=== PATIENT | female | born 1935 | race Caucasian/White ===

== ENCOUNTER 2017-03-25 14:34 | Inpatient (IN) ==
[2017-03-25 14:57] LABS: Basophils # 0.1 K/mcL (0.0-0.2); Basophils % 0.8 %; Eosinophils # 0.1 K/mcL (0.0-0.6); Eosinophils % 1.8 %; Hematocrit 31.5 % (35.3-44.9); Hemoglobin 9.8 g/dL (11.5-15.4); Immature Granulocytes % 0.3 % (0-4); Lymphocytes % 12.7 %; Mean Corpuscular HGB Conc 31.1 g/dL (31.6-35.5); Mean Corpuscular Hemoglobin 30.4 pg (28.0-33.3); Mean Corpuscular Volume 97.8 fL (83.0-100.0); Mean Platelet Volume 10.5 fL (9.4-12.4); Monocytes # 0.8 K/mcL (0.0-1.3); Monocytes % 9.8 %; Neutrophils # 5.7 K/mcL (1.6-8.9); Platelet Count 279 K/mcL (140-400); Red Blood Count 3.22 M/mcL (3.82-4.97); Red Cell Distribution Width 14.7 % (11.5-14.5); Segmented Neutrophils % 74.6 %
--- NOTE | 2017-03-25 15:02 | Emergency Department Note ---
START Narrative - START START: 81-year-old female presents to the ED because of syncope and headache. She was in the process of going to the Coumadin clinic when she had a syncopal episode of uncertain duration. Denies any preemptive symptoms. However, she did awake with a headache and dyspnea. Denies chest pain. No nausea vomiting. No focal weakness. Examination she is awake and alert. Supple oxygen in place. He is membranes are moist. Neck is supple. Neck nontender to palpation. Chest clear but diminished bilaterally. Neurologic exam is nonfocal.
[2017-03-25 15:07] LABS: INR 2.7; Prothrombin Time 30.1 Seconds (9.4-12.1)
[2017-03-25] MEDS ORDERED: methylPREDNISolone 125 MG/2 ML VIAL IVP ONE (15:14)
[2017-03-25] MEDS ORDERED: Ipratropium/Albuterol Neb 3 ML IH ONE (15:14)
[2017-03-25 15:16] LABS: BUN/Creatinine Ratio 37 (6-26); Blood Urea Nitrogen 23 mg/dL (8-23); Calcium 9.7 mg/dL (8.6-10.3); Carbon Dioxide 32 mEq/L (23-29); Chloride 98 mEq/L (98-107); Glucose 125 mg/dL (70-105); Osmolality,Calculated 287 (280-300); Potassium 4.1 mEq/L (3.5-5.1); Sodium 136 mEq/L (136-145); eGFR For African Americans > 60 (> 60); eGFR For Non-African Americans > 60 (> 60)
[2017-03-25 15:47] LABS: VBG HCO3 33 mEq/L (21-27); VBG PCO2 53 mmHg (41-51); VBG PO2 47 mmHg (25-50)
--- NOTE | 2017-03-25 15:58 | Emergency Department Note ---
Disposition Clinical Impression: COPD exacerbation Syncope Qualifiers: Syncope type: unspecified Qualified Code(s): R55 - Syncope and collapse Anemia Qualifiers: Anemia type: unspecified type Qualified Code(s): D64.9 - Anemia, unspecified Disposition: Admitted As Inpatient Condition: Fair General Adult HPI - General Chief complaint: ED Shortness of Breath/Dyspnea Stated complaint: Shortness of breath Time Seen by Provider: 03/25/17 15:01 Source: patient, EMS Limitations: no limitations Nursing Notes Reviewed: Yes Vital Signs Reviewed: Yes - History of Present Illness HPI Narrative: Past medical history of [place] givens on Coumadin, CHF, COPD on 2 L of home oxygen, hypertension, hyperlipidemia presents for evaluation of chest pain and syncope. Patient was on her way to the Coumadin clinic when she was getting out of the car became acutely dyspneic. Patient states that her family told her that she passed out. Patient was arousable with physical stimulation. Patient has returned to baseline mental status. The patient complains of continued chest pressure in her chest which she describes as a dullness. Describes worsening shortness of breath requiring increase in baseline oxygen. Patient also has abdominal pain however she states this pain is chronic and family states that this has been going on for years. She has irritation of her stomach as well as a hernia. This point the patient is mildly dyspneic and will need breathing treatments and steroids and admission for chest pain, COPD exacerbation, syncope. Pain Scale: 0 - Related Data Home Medications Medication Instructions Recorded Confirmed Allopurinol [Zyloprim] 300 mg PO QAM 10/11/14 03/25/17 Atorvastatin Calcium [Lipitor] 20 mg PO QAM 10/11/14 03/25/17 Quinapril HCl [Accupril] 40 mg PO QAM 10/11/14 03/25/17 Diclofenac Sodium 1 appl TP QID PRN 01/28/17 03/25/17 Escitalopram [Lexapro] 10 mg PO DAILY 01/28/17 03/25/17 Amlodipine Besylate 10 mg PO DAILY 03/25/17 03/25/17 Furosemide [Lasix] 40 mg PO BID 03/25/17 03/25/17 Lidocaine Patch [Lidoderm 5% patch] 2 each TP DAILY 03/25/17 03/25/17 Oxycodone HCl/Acetaminophen 1 tab PO Q6H PRN 03/25/17 03/25/17 [Percocet 5-325 mg Tablet] Sucralfate [Carafate] 1 gm PO QID 03/25/17 03/25/17 Warfarin Sodium [Coumadin] 6 mg PO SUMOTUTHSA 03/25/17 03/25/17 Warfarin [Coumadin] 8 mg PO WEFR 03/25/17 03/25/17 metFORMIN [Glucophage] 500 mg PO BIDWM 03/25/17 03/25/17 Previous Rx's Medication Instructions Recorded Aspirin Enteric Coated [Aspirin EC] 81 mg PO DAILY #30 tablet. 02/04/17 Carvedilol [Coreg] 6.25 mg PO BIDWM #60 tablet 02/04/17 Omeprazole [PriLOSEC] 40 mg PO DAILY #30 cap 02/04/17 hydroCHLOROthiazide 25 mg PO DAILY #30 tablet 02/04/17 [Hydrochlorothiazide] Allergies Allergy/AdvReac Type Severity Reaction Status Date / Time No Known Allergies Allergy Verified 01/28/17 13:58 Review of Systems: CONSTITUTIONAL: No weight loss, fever, chills, weakness or fatigue. HEENT: Eyes: No visual changes. Ears, Nose, Throat: No hearing loss, difficulty talking or unable to swallow. SKIN: No rash or itching. CARDIOVASCULAR: chest pain No palpitations or edema. RESPIRATORY: shortness of breath, No cough or sputum. GASTROINTESTINAL: No anorexia, nausea, vomiting or diarrhea. No abdominal pain or blood. GENITOURINARY: No burning on urination or hematuria. NEUROLOGICAL: syncope No headache, dizziness, paralysis, ataxia, numbness or tingling in the extremities. No change in bowel or bladder control. MUSCULOSKELETAL: No muscle pain, back pain, joint pain or stiffness. Past Medical History - Past Medical History Medical history: Reports: atrial fibrillation, CHF, COPD, diabetes, hyperlipidemia, hypertension Surgical history: Reports: cataract, cholecystectomy, hysterectomy Psychiatric history: Reports: depression - Social History Smoking Status: Former smoker Smokeless Tobacco Status: No Alcohol use: Reports: none Drug use: Reports: none Physical Exam - General Limitations: no limitations General appearance: alert, in no apparent distress Course - Reevaluation(s) Reevaluation #1: Patient's breathing has improved with breathing treatment and steroids. Patient is complaining of worsening abdominal pain. States it is chronic however she states that it is more than usual. Patient will receive CT abdomen and pelvis. Reevaluation #2: CT abdomen and pelvis is negative. Patient will work is otherwise unremarkable. Patient does have chronic anemia. Patient will need further evaluation for syncope. Patient will also need further treatment for COPD exacerbation. - Consultations Consultation #1: Discussed with Dr. Hernandez. Patient accepted for admission. Vital Signs Temperature 97.9 F 03/25/17 14:35 Pulse Rate 80 03/25/17 14:35 Respiratory Rate 24 03/25/17 14:35 Blood Pressure 145/85 03/25/17 14:35 O2 Sat by Pulse Oximetry 100 03/25/17 14:35 Temperature 98.5 F 03/26/17 00:04 Pulse Rate 104 03/26/17 00:04 Respiratory Rate 17 03/26/17 00:04 Blood Pressure 123/61 03/26/17 00:04 O2 Sat by Pulse Oximetry 95 03/26/17 00:04 Oxygen Delivery Oxygen Delivery Nasal Cannula Medical Decision Making - Medical Records Medical records reviewed: Yes I reviewed the patient's medical records. - Lab Data Lab results reviewed: Yes I reviewed the patient's lab results. Result diagrams: 03/25/17 14:49 03/25/17 14:49 Lab Results 03/25/17 03/25/17 03/25/17 Range/Units 14:49 14:49 14:49 WBC 7.7 (4.3-11.1) K/mcL RBC 3.22 L (3.82-4.97) M/mcL Hgb 9.8 L (11.5-15.4) g/dL Hct 31.5 L (35.3-44.9) % MCV 97.8 (83.0-100.0) fL MCH 30.4 (28.0-33.3) pg MCHC 31.1 L (31.6-35.5) g/dL RDW 14.7 H (11.5-14.5) % Plt Count 279 (140-400) K/mcL MPV 10.5 (9.4-12.4) fL Immature Gran % 0.3 (0-4) % Seg Neutrophils % 74.6 % Lymphocytes % 12.7 % Monocytes % 9.8 % Eosinophils % 1.8 % Basophils % 0.8 % Neutrophils # 5.7 (1.6-8.9) K/mcL Lymphocytes # 1.0 (0.6-4.6) K/mcL Monocytes # 0.8 (0.0-1.3) K/mcL Eosinophils # 0.1 (0.0-0.6) K/mcL Basophils # 0.1 (0.0-0.2) K/mcL PT 30.1 H (9.4-12.1) Seconds INR 2.7 APTT 32.0 (26.0-36.0) Seconds VBG pH (7.32-7.42) pH Units VBG pCO2 (41-51) mmHg VBG pO2 (25-50) mmHg VBG HCO3 (21-27) mEq/L Sodium 136 (136-145) mEq/L Potassium 4.1 (3.5-5.1) mEq/L Chloride 98 (98-107) mEq/L Carbon Dioxide 32 H (23-29) mEq/L BUN 23 (8-23) mg/dL Creatinine 0.62 (0.60-1.20) mg/dL Est GFR ( Amer) > 60 (> 60) Est GFR (Non-Af Amer) > 60 (> 60) BUN/Creatinine Ratio 37 H (6-26) Glucose 125 H (70-105) mg/dL POC Glucose (58-89) Calculated Osmolality 287 (280-300) Lactic Acid (0.5-2.2) mmol/L Calcium 9.7 (8.6-10.3) mg/dL Total Bilirubin (0.3-1.0) mg/dL Direct Bilirubin (0.0-0.2) mg/dL Indirect Bilirubin (0.0-1.2) mg/dL AST (13-39) Units/L ALT (7-52) Units/L Alkaline Phosphatase (34-104) Units/L Troponin I (< 0.04) ng/mL B-Natriuretic Peptide (Less than 100) pg/mL Serum Total Protein (6.4-8.9) g/dL Albumin (3.5-5.7) g/dL Globulin (2.4-3.5) g/dL Albumin/Globulin Ratio (1.1-2.2) Lipase (11-82) Units/L 03/25/17 03/25/17 03/25/17 Range/Units 14:49 14:49 15:35 WBC (4.3-11.1) K/mcL RBC (3.82-4.97) M/mcL Hgb (11.5-15.4) g/dL Hct (35.3-44.9) % MCV (83.0-100.0) fL MCH (28.0-33.3) pg MCHC (31.6-35.5) g/dL RDW (11.5-14.5) % Plt Count (140-400) K/mcL MPV (9.4-12.4) fL Immature Gran % (0-4) % Seg Neutrophils % % Lymphocytes % % Monocytes % % Eosinophils % % Basophils % % Neutrophils # (1.6-8.9) K/mcL Lymphocytes # (0.6-4.6) K/mcL Monocytes # (0.0-1.3) K/mcL Eosinophils # (0.0-0.6) K/mcL Basophils # (0.0-0.2) K/mcL PT (9.4-12.1) Seconds INR APTT (26.0-36.0) Seconds VBG pH (7.32-7.42) pH Units VBG pCO2 (41-51) mmHg VBG pO2 (25-50) mmHg VBG HCO3 (21-27) mEq/L Sodium (136-145) mEq/L Potassium (3.5-5.1) mEq/L Chloride (98-107) mEq/L Carbon Dioxide (23-29) mEq/L BUN (8-23) mg/dL Creatinine (0.60-1.20) mg/dL Est GFR ( Amer) (> 60) Est GFR (Non-Af Amer) (> 60) BUN/Creatinine Ratio (6-26) Glucose (70-105) mg/dL POC Glucose (58-89) Calculated Osmolality (280-300) Lactic Acid (0.5-2.2) mmol/L Calcium (8.6-10.3) mg/dL Total Bilirubin 0.8 (0.3-1.0) mg/dL Direct Bilirubin 0.2 (0.0-0.2) mg/dL Indirect Bilirubin 0.6 (0.0-1.2) mg/dL AST 16 (13-39) Units/L ALT 11 (7-52) Units/L Alkaline Phosphatase 63 (34-104) Units/L Troponin I < 0.03 (< 0.04) ng/mL B-Natriuretic Peptide 258 H (Less than 100) pg/mL Serum Total Protein 7.2 (6.4-8.9) g/dL Albumin 3.9 (3.5-5.7) g/dL Globulin 3.3 (2.4-3.5) g/dL Albumin/Globulin Ratio 1.2 (1.1-2.2) Lipase 41 (11-82) Units/L 03/25/17 03/25/17 03/25/17 Range/Units 15:35 15:43 20:12 WBC (4.3-11.1) K/mcL RBC (3.82-4.97) M/mcL Hgb (11.5-15.4) g/dL Hct (35.3-44.9) % MCV (83.0-100.0) fL MCH (28.0-33.3) pg MCHC (31.6-35.5) g/dL RDW (11.5-14.5) % Plt Count (140-400) K/mcL MPV (9.4-12.4) fL Immature Gran % (0-4) % Seg Neutrophils % % Lymphocytes % % Monocytes % % Eosinophils % % Basophils % % Neutrophils # (1.6-8.9) K/mcL Lymphocytes # (0.6-4.6) K/mcL Monocytes # (0.0-1.3) K/mcL Eosinophils # (0.0-0.6) K/mcL Basophils # (0.0-0.2) K/mcL PT (9.4-12.1) Seconds INR APTT (26.0-36.0) Seconds VBG pH 7.40 (7.32-7.42) pH Units VBG pCO2 53 H (41-51) mmHg VBG pO2 47 (25-50) mmHg VBG HCO3 33 H (21-27) mEq/L Sodium (136-145) mEq/L Potassium (3.5-5.1) mEq/L Chloride (98-107) mEq/L Carbon Dioxide (23-29) mEq/L BUN (8-23) mg/dL Creatinine (0.60-1.20) mg/dL Est GFR ( Amer) (> 60) Est GFR (Non-Af Amer) (> 60) BUN/Creatinine Ratio (6-26) Glucose (70-105) mg/dL POC Glucose (58-89) Calculated Osmolality (280-300) Lactic Acid 1.2 (0.5-2.2) mmol/L Calcium (8.6-10.3) mg/dL Total Bilirubin (0.3-1.0) mg/dL Direct Bilirubin (0.0-0.2) mg/dL Indirect Bilirubin (0.0-1.2) mg/dL AST (13-39) Units/L ALT (7-52) Units/L Alkaline Phosphatase (34-104) Units/L Troponin I < 0.03 (< 0.04) ng/mL B-Natriuretic Peptide (Less than 100) pg/mL Serum Total Protein (6.4-8.9) g/dL Albumin (3.5-5.7) g/dL Globulin (2.4-3.5) g/dL Albumin/Globulin Ratio (1.1-2.2) Lipase (11-82) Units/L 03/25/17 Range/Units 20:34 WBC (4.3-11.1) K/mcL RBC (3.82-4.97) M/mcL Hgb (11.5-15.4) g/dL Hct (35.3-44.9) % MCV (83.0-100.0) fL MCH (28.0-33.3) pg MCHC (31.6-35.5) g/dL RDW (11.5-14.5) % Plt Count (140-400) K/mcL MPV (9.4-12.4) fL Immature Gran % (0-4) % Seg Neutrophils % % Lymphocytes % % Monocytes % % Eosinophils % % Basophils % % Neutrophils # (1.6-8.9) K/mcL Lymphocytes # (0.6-4.6) K/mcL Monocytes # (0.0-1.3) K/mcL Eosinophils # (0.0-0.6) K/mcL Basophils # (0.0-0.2) K/mcL PT (9.4-12.1) Seconds INR APTT (26.0-36.0) Seconds VBG pH (7.32-7.42) pH Units VBG pCO2 (41-51) mmHg VBG pO2 (25-50) mmHg VBG HCO3 (21-27) mEq/L Sodium (136-145) mEq/L Potassium (3.5-5.1) mEq/L Chloride (98-107) mEq/L Carbon Dioxide (23-29) mEq/L BUN (8-23) mg/dL Creatinine (0.60-1.20) mg/dL Est GFR ( Amer) (> 60) Est GFR (Non-Af Amer) (> 60) BUN/Creatinine Ratio (6-26) Glucose (70-105) mg/dL POC Glucose 163 H (58-89) Calculated Osmolality (280-300) Lactic Acid (0.5-2.2) mmol/L Calcium (8.6-10.3) mg/dL Total Bilirubin (0.3-1.0) mg/dL Direct Bilirubin (0.0-0.2) mg/dL Indirect Bilirubin (0.0-1.2) mg/dL AST (13-39) Units/L ALT (7-52) Units/L Alkaline Phosphatase (34-104) Units/L Troponin I (< 0.04) ng/mL B-Natriuretic Peptide (Less than 100) pg/mL Serum Total Protein (6.4-8.9) g/dL Albumin (3.5-5.7) g/dL Globulin (2.4-3.5) g/dL Albumin/Globulin Ratio (1.1-2.2) Lipase (11-82) Units/L - Radiology Data Radiology results reviewed: Yes I reviewed the patient's radiology results. - EKG Data EKG #1 EKG attestation: Yes I reviewed and interpreted this EKG. EKG results narrative: EKG shows atrial fibrillation with a ventricular rate of 67. QRS 165. QTC 453. Patient has no significant ST elevations or depressions. There are no changes in comparison to 01/28/17. Attestation Statement - Attestation Attestation: I examined this patient and my medical decision-making was reviewed with the Resident Physician. I agree with the documented findings, disposition and treatment plan as described except to the extent set forth below. Syncope, abdominal pain. We will recommend workup including inpatient stay for further evaluation of significant ascending abdominal pain. CT scan shows no acute findings. No significant metabolic derangement identified.
[2017-03-25] MEDS ORDERED: 0.9 % Sodium Chloride 250 ML IVC ONE (16:11)
[2017-03-25] MEDS ORDERED: *HR* FentaNYL (PF) 100 MCG/2 ML VIAL IVP ONE (16:11)
[2017-03-25] MEDS ORDERED: Ondansetron 4 MG/2 ML VIAL IVP STA (16:12)
[2017-03-25 16:44] LABS: Albumin 3.9 g/dL (3.5-5.7); Albumin/Globulin Ratio 1.2 (1.1-2.2); Bilirubin,Direct 0.2 mg/dL (0.0-0.2); Bilirubin,Indirect 0.6 mg/dL (0.0-1.2); Bilirubin,Total 0.8 mg/dL (0.3-1.0); Globulin 3.3 g/dL (2.4-3.5); Total Protein 7.2 g/dL (6.4-8.9)
[2017-03-25] MEDS ORDERED: Ondansetron 4 MG/2 ML VIAL IVP PRN (18:54)
[2017-03-25] MEDS ORDERED: Naloxone 0.4 MG/ML INJ IVP PRN (18:54)
[2017-03-25] MEDS ORDERED: DICLOFENAC SODIUM TP PRN (19:00)
[2017-03-25] MEDS ORDERED: *HR* Dextrose 50 % in Water (Syg) 50 ML SYRINGE IVP PRN (19:12)
[2017-03-25] MEDS ORDERED: D5% in Water 1,000 ML IVC PRN (19:12)
[2017-03-25] MEDS ORDERED: Dextrose Gel 15 GM/37.5 ML TUBE PO PRN ×2 (19:12)
--- NOTE | 2017-03-25 19:22 | Internal Med History&Physical ---
<Levi Hook - Last Filed: 03/25/17 20:03> Date of Encounter: 03/25/17 Time of Encounter: 18:00 Assessment and Plan (1) Acute exacerbation of congestive heart failure Current visit: Yes Status: Acute Acute exacerbation of CHF. SOB, dyspnea, orthopnea, increased abdominal girth, and 2+ bilateral pitting edema of the LEs that has progressively become worse over the past 2-3 days. 1.5L daily fluid restriction. Pt. takes 40 mg BID PO lasix daily. Hold PO and administer 40 mg IVP lasix BID. Monitor I&O and daily weight. Continuous cardiac telemetry. Echocardiogram dated 01/29/17 shows LVEF of 60-65%, normal LV chamber size and function, mild concentric left ventricular hypertrophy, atypical septal motion consistent with bundle branch block, indeterminate diastolic function, mildly dilated right ventricle with normal function, severely dilated left atrium, severely dilated right atrium, mild aortic regurgitation, severe tricuspid regurgitation, moderate to severe pulmonary hypertension, and estimated RVSP is 54 mmHg. Supplemental O2 w/ titration and SpO2 monitoring. DuoNebs Q6 scheduled. Pt. discussed w/Dr. Harris who is in agreement w/plan of care. Pt. is high risk for cardiac and/ or respiratory distress d/t current exacerbations of CHF and COPD, complicated by suspected bronchitis. Qualifiers: Congestive heart failure type: diastolic Qualified Code(s): I50.33 - Acute on chronic diastolic (congestive) heart failure (2) Acute exacerbation of chronic obstructive airways disease Current visit: Yes Status: Acute Acute exacerbation of COPD. SOB w/dyspnea. Solumedrol 40 mg IVP Q8. Supplemental O2 w/titration and SpO2 monitoring. DuoNebs Q6 scheduled. Monitor pt. and respiratory status closely. Azithromycin 500 mg PO daily for bronchitis infection coverage. (3) Weakness of both legs Current visit: Yes Status: Acute Acute weakness of bilateral knees and LEs. Falls/safety precautions. SW/PT/OT consults ordered to assess pt. for rehabilitation and post-discharge needs. (4) Syncope Current visit: Yes Status: Acute Acute syncopal episode this morning while seated in car w/daughter. States has happened before x2 (last time at [facility]). Pt. did not become incontinent. Pt. denies falling as she was seated. Denies appearance of seizure. Falls/ safety precautions, [id number], bedside commode w/assist. Bilateral carotid Doppler imaging ordered. Echocardiogram on 01/29/17 shows LVEF 60-65%. Qualifiers: Syncope type: unspecified Qualified Code(s): R55 - Syncope and collapse (5) DM2 (diabetes mellitus, type 2) Current visit: Yes Status: Chronic Hx of chronic DM controlled by Metformin. Hold oral and administer low-dose correction insulin sliding scale and hypoglycemic protocol. BG checks ACHS. A1c in a.m. labs. Qualifiers: Diabetes mellitus complication status: without complication Diabetes mellitus mcc insulin use: without mcc use Qualified Code(s): E11.9 - Type 2 diabetes mellitus without complications (6) GERD (gastroesophageal reflux disease) Current visit: Yes Status: Chronic Hx of chronic GERD. IVP Zofran 4 mg Q8 for N/V. Continue pts. Prilosec. Qualifiers: Esophagitis presence: esophagitis presence not specified Qualified Code(s) : K21.9 - Gastro-esophageal reflux disease without esophagitis (7) Gout Current visit: Yes Status: Chronic Hx of chronic gout. Continue pts. Allopurinol. Qualifiers: Gout site: unspecified site Gout etiology: unspecified cause Chronicity: chronic Presence of tophus: without tophus Qualified Code(s): M1A.9XX0 - Chronic gout, unspecified, without tophus (tophi) (8) HLD (hyperlipidemia) Current visit: Yes Status: Chronic Hx of chronic HLD. Lipid panel in a.m. labs. Continue pts. Lipitor. Qualifiers: Hyperlipidemia type: pure hypercholesterolemia Qualified Code(s): E78.00 - Pure hypercholesterolemia, unspecified; E78.0 - Pure hypercholesterolemia (9) HTN (hypertension) Current visit: Yes Status: Chronic Hx of chronic HTN. Monitor pt. and VS. Continue pts. Accupril, amlodipine, carvedilol, and hydrochlorothiazide. Qualifiers: Hypertension type: essential hypertension Qualified Code(s): I10 - Essential (primary) hypertension (10) Anxiety and depression Current visit: Yes Status: Chronic Hx of chronic anxiety and depression. Continue pts. Lexapro (11) DVT prophylaxis Current visit: Yes Status: Acute Continue patient's Coumadin with pharmacy dosing for DVT prophylaxis. Monitor patient for signs of bleeding. Internal Medicine - H&P: HPI Chief complaint: SOB/Dyspnea Admitted From: Emergency Dept Plans for Post Hospital Care: Home History of present illness: Ms. Rodriguez is a 81 year old female with medical hx of chronic atrial fibrillation , CHF, COPD, diabetes controlled with oral antihyperglycemic medications, HLD, and HCM presents from the ED with chief complaints of brief syncopal episode this morning while sitting in the car, shortness of breath, and dyspnea for the past two days. Pt. reports she is having chest discomfort across her chest w/o radiation as well as bilateral leg weakness. Pt. denies recent illness, fever, chills, nausea, vomiting, palpitations, headache, changes of vision, unusual bleeding, diarrhea, constipation, abdominal pain, dizziness, lightheadedness, pre-syncope, or syncope. Past Med Surg Social Fam HX - Past Medical History Source: patient, old records reviewed, obtained from family Medical history: atrial fibrillation, CHF, COPD, diabetes, hyperlipidemia, hypertension Psychiatric history: depression - Past Surgical History Surgical History: cataract (Bilateral), cholecystectomy, hysterectomy (Total) - Social History Smoking Status: Never smoker Smokeless Tobacco Status: No Alcohol use: none Drug use: none Current living situation: Home, With Family Activity Level: Uses cane/walker Recent Out of Country Travel Within the Last 8 Weeks: No Exposure or Possible Exposure to Illness During Travel: No - Family History Mother Race: Family Member Ethnicity: Non- Living Status: Age at : 72 Cause of : Emphysema Hx Family Respiratory Disorders: Yes (Emphysema, TB) Hx Family Cancer: Yes (Basal cell skin cancer) Hx Family Endocrine Disorder: Yes (Cirrhosis) Father Race: Family Member Ethnicity: Non- Living Status: Age at : 70 Cause of : COPD Hx Family Respiratory Disorders: Yes (COPD, emphysema) Hx Family Endocrine Disorder: Yes (Cirrhosis) Brother History Unknown: Yes Race: Family Member Ethnicity: Non- Living Status: Sister Race: Family Member Ethnicity: Non- Living Status: Age at : 50 Cause of : [place] Hx Family Cardiac Disorders: Yes ([place]) Internal Medicine - H&P: Meds Allopurinol [Zyloprim] 300 mg PO QAM 10/11/14 [History] Atorvastatin Calcium [Lipitor] 20 mg PO QAM 08/06/15 [History] Quinapril HCl [Accupril] 40 mg PO QAM 10/11/14 [History] Diclofenac Sodium 1 appl TP QID PRN 01/28/17 [History] Escitalopram [Lexapro] 10 mg PO DAILY 01/28/17 [History] Aspirin Enteric Coated [Aspirin EC] 81 mg PO DAILY #30 tablet. 02/04/17 [Rx] Carvedilol [Coreg] 6.25 mg PO BIDWM #60 tablet 02/04/17 [Rx] Omeprazole [PriLOSEC] 40 mg PO DAILY #30 cap 02/04/17 [Rx] hydroCHLOROthiazide [Hydrochlorothiazide] 25 mg PO DAILY #30 tablet 02/04/17 [Rx ] Amlodipine Besylate 10 mg PO DAILY 03/25/17 [History] Furosemide [Lasix] 40 mg PO BID 03/25/17 [History] Lidocaine Patch [Lidoderm 5% patch] 2 each TP DAILY 03/25/17 [History] Oxycodone HCl/Acetaminophen [Percocet 5-325 mg Tablet] 1 tab PO Q6H PRN [History] Sucralfate [Carafate] 1 gm PO QID 03/25/17 [History] Warfarin Sodium [Coumadin] 6 mg PO SUMOTUTHSA 03/25/17 [History] Warfarin [Coumadin] 8 mg PO WEFR 03/25/17 [History] metFORMIN [Glucophage] 500 mg PO BIDWM 03/25/17 [History] 3 Allergy/AdvReac Type Severity Reaction Status Date / Time No Known Allergies Allergy Verified 01/28/17 13:58 All Systems PM: A 10-system review of systems was performed and is negative for pertinent findings except as documented above in the HPI. - Constitutional Constitutional: as per HPI, weakness, no chills, no fever(s), no night sweats - EENT Eyes: no change in vision, no discharge, no pain, no photophobia Ears: no ear discharge, no ear pain, no tinnitus Nose, mouth and throat: no dysphagia, no nasal discharge, no neck pain, no sore throat - Breasts Breasts: as per HPI - Cardiovascular Cardiovascular ROS IM: as per HPI, chest pain, dyspnea, dyspnea on exertion, edema (Bilateral pedal edema), irregular heart rhythm (D/T atrial fibrillation) , orthopnea, syncope, no diaphoresis, no lightheadedness, no palpitations - Respiratory Respiratory: as per HPI, cough, dyspnea, dyspnea on exertion, wheezing, no excessive phlegm production - Gastrointestinal Gastrointestinal: no abdominal pain, no diarrhea, no hematemesis, no hematochezia, no melena, no nausea, no vomiting - Genitourinary Genitourinary: no change in urinary stream, no dysuria, no flank pain, no hematuria Menstruation: as per HPI, post hysterectomy - Musculoskeletal Musculoskeletal ROS IM: no numbness, no tingling - Integumentary Integumentary IM: no rash, no unusual bruising - Neurological Neurological ROS: as per HPI, weakness, no confusion, no convulsions, no focal weakness, no numbness, no tingling, no tremor(s) - Psychiatric Psychiatric: as per HPI, depression - Endocrine Endocrine IM: as per HPI - Hematologic/Lymphatic Hematologic/Lymphatic: no easy bruising - Allergic/Immunologic Allergic/Immunologic: as per HPI - Constitutional Vitals: Temp Pulse Resp BP Pulse Ox 97.9 F 102 18 153/74 92 03/25/17 14:35 03/25/17 18:10 03/25/17 18:10 03/25/17 18:10 03/25/17 18:10 General appearance: Present: cooperative, mild distress (Respiratory), A&O X 3, pleasant, obese, answers questions appropriately - Head Head exam: Present: atraumatic, normocephalic - Eye Eye exam: Present: PERRL, conjuntiva pink, sclera anicteric Pupils: Present: PERRL - ENT ENT exam: Present: normal exam - Neck Neck exam general surgery: Present: normal inspection, supple, trachea midline. Absent: lymphadenopathy - Respiratory Respiratory exam: Present: accessory muscle use, respiratory distress, wheezes. Absent: rales, rhonchi - Cardiovascular Cardiovascular exam: Present: irregular rhythm (Atrial fibrillation) - GI/Abdominal GI/Abdominal exam: Present: normal bowel sounds, soft, no peritoneal signs. Absent: distended, tenderness - Rectal Rectal exam: Present: deferred - Additional comments: exam deferred. - Extremities Exam Extremities exam: Present: pedal edema (2+ pitting edema in bilateral LEs), warm , radial pulses palpable and symmetrical. Absent: calf tenderness, cyanotic - Back Exam Back exam: Present: normal inspection - Neurological Exam Neurological exam: Present: CN II-XII intact, oriented X3, no focal deficits. Absent: pronater drift, facial droop, speech deficit - Psychiatric Psychiatric exam: Present: normal affect, normal mood - Skin Skin exam: Present: dry, intact Internal Med - H&P Results - Labs CBC & Chem 7: 03/25/17 14:49 03/25/17 14:49 - EKG Data Prior EKG available for review: yes EKG comments: 03/25/17 19:33 EKG dated 01/28/17 shows atrial fibrillation with aberrant conduction or ventricular premature complexes, indeterminate axis, right bundle branch block, baseline artifact complicates accurate interpretation. EKG dated 03/25/17 shows atrial fibrillation with right bundle branch block. - Diagnostic Studies Chest x-ray Additional comments: Impressions Chest X-Ray 03/25/17 14:39 IMPRESSION: No evidence for acute cardiopulmonary process. Stable cardiomegaly. D/ / Gal Goss MD / Gal Goss MD Interpreting Provider: Gal Goss MD CT scan - head Additional comments: Impressions Head CT 03/25/17 15:00 IMPRESSION: No acute intracranial abnormality. D/ / Ethan Flores MD / Ethan Flores MD Interpreting Provider: Ethan Flores MD CT scan - abdomen Additional comments: Impressions Abdomen/Pelvis CT 03/25/17 16:10 IMPRESSION: Nonspecific trace scattered ascites. Small pericardial effusion. Unchanged indeterminate fat induration at lolis hepatis along course of common bile duct and adjacent to proximal duodenum. Colonic diverticulosis without evidence of diverticulitis. D/ / Faheem Parisi MD / Faheem Parisi MD Interpreting Provider: Faheem Parisi MD Other Images Additional comments: Impressions Cervical Spine CT 03/25/17 16:11 IMPRESSION: 1. No acute fracture. 2. Patchy ground-glass opacity within the upper lungs. This is nonspecific and could be secondary to micro atelectasis. However, correlate with any clinical evidence of infectious/inflammatory pneumonitis, or pulmonary edema. 3. Evaluation of the lower cervical spine is limited by the patient's body habitus. D/ / Slade Keyes MD / Slade Keyes MD Interpreting Provider: Slade Keyes MD <Nathaniel Harris - Last Filed: 03/26/17 02:31> Date of Encounter: 03/25/17 Time of Encounter: 23:10 - Constitutional Vitals: Temp Pulse Resp BP Pulse Ox 98.5 F 104 17 123/61 95 03/26/17 00:04 03/26/17 00:04 03/26/17 00:04 03/26/17 00:04 03/26/17 00:04 General appearance: Present: cooperative, A&O X 3, pleasant, no acute distress - ENT ENT exam: Present: normal exam - Neck Neck exam general surgery: Present: supple - Respiratory Respiratory exam: Present: prolonged expiratory phase, wheezes. Absent: chest wall tenderness, rales - Cardiovascular Cardiovascular exam: Present: irregular rhythm, +S1, +S2 - GI/Abdominal GI/Abdominal exam: Present: normal bowel sounds, soft. Absent: hepatomegaly, splenomegaly, tenderness - Extremities Exam Extremities exam: Present: pedal edema (1 - 2 +), warm, radial pulses palpable and symmetrical - Back Exam Back exam: Absent: CVA tenderness (L), CVA tenderness (R) Internal Med - H&P Results - Labs CBC & Chem 7: 03/26/17 01:19 03/26/17 01:19 Labs: Short CBC 03/26/17 Range/Units 01: WBC 7.0 (4.3-11.1) K/mcL Hgb 9.3 L (11.5-15.4) g/dL Hct 30.2 L (35.3-44.9) % Plt Count 283 (140-400) K/mcL Neutrophils # 6.5 (1.6-8.9) K/mcL BMP 03/26/17 01:19 Sodium 135 L Potassium 4.4 Chloride 96 L Carbon Dioxide 33 H BUN 22 Creatinine 0.62 Glucose 174 H Calcium 9.6 Cardiac Enzymes 03/26/17 Range/Units 01:19 Troponin I < 0.03 (< 0.04) ng/mL Liver Function 03/26/17 Range/Units 01:19 Total Bilirubin 0.7 (0.3-1.0) mg/dL AST 15 (13-39) Units/L ALT 10 (7-52) Units/L Alkaline Phosphatase 59 (34-104) Units/L Albumin 3.8 (3.5-5.7) g/dL - Diagnostic Studies Chest x-ray Status: image reviewed by me (cardiomegaly; negative lung tyler) - Attending Attestation I discussed the patient WRANGELL, PMH, ROS, lab data, and exam findings with Juan Alberto Hook CNP. I then saw and examined patient independently as well. Patient reports chronic edema and respiratory distress. However, over the last few days, she complained of increased cough, wheeze, and shortness of breath. On exam, she appears to be suffering moreso from COPD than CHF in my opinion. However, I would treat both as she also reports increased weight and pedal edema lately. She feels better already after some aerosols. She denies any fevers, chills, or night sweats. Other than my comments above and noted exam findings, I agree with Juan Alberto's assessment and plan.
[2017-03-25] MEDS: Ipratropium/Albuterol Neb 3 ML IH SCH (22:08)
[2017-03-25] MEDS: Insulin LISPRO 300 UNITS/3 ML VIAL SQ SCH (23:03)
[2017-03-25] MEDS: Furosemide 40 MG/4 ML VIAL IVP SCH (23:04)
[2017-03-25] MEDS: Sucralfate 1 GM TABLET PO SCH (23:04)
[2017-03-25] MEDS: Azithromycin 250 MG TABLET PO SCH (23:04)
[2017-03-25] MEDS: *HR* OxyCODONE/APAP 5/325 TABLET PO PRN (23:07)
[2017-03-25] MEDS: MethylPREDNISolone 40 MG/ML VIAL IVP SCH (23:08)
[2017-03-26 01:41] LABS: Basophils % 0.1 %; Hematocrit 30.2 % (35.3-44.9); Hemoglobin 9.3 g/dL (11.5-15.4); Immature Granulocytes % 0.4 % (0-4); Lymphocytes # 0.5 K/mcL (0.6-4.6); Lymphocytes % 7.1 %; Mean Corpuscular HGB Conc 30.8 g/dL (31.6-35.5); Mean Corpuscular Hemoglobin 30.2 pg (28.0-33.3); Mean Corpuscular Volume 98.1 fL (83.0-100.0); Mean Platelet Volume 10.4 fL (9.4-12.4); Monocytes # 0.1 K/mcL (0.0-1.3); Monocytes % 0.7 %; Neutrophils # 6.5 K/mcL (1.6-8.9); Platelet Count 283 K/mcL (140-400); Red Blood Count 3.08 M/mcL (3.82-4.97); Red Cell Distribution Width 14.6 % (11.5-14.5); Segmented Neutrophils % 91.7 %
[2017-03-26 01:45] LABS: Prothrombin Time 33.1 Seconds (9.4-12.1)
[2017-03-26 02:02] LABS: Alanine Aminotransferase 10 Units/L (7-52); Albumin 3.8 g/dL (3.5-5.7); Albumin/Globulin Ratio 1.2 (1.1-2.2); Alkaline Phosphatase 59 Units/L (34-104); Aspartate Amino Transferase 15 Units/L (13-39); BUN/Creatinine Ratio 35 (6-26); Bilirubin,Total 0.7 mg/dL (0.3-1.0); Blood Urea Nitrogen 22 mg/dL (8-23); Calcium 9.6 mg/dL (8.6-10.3); Carbon Dioxide 33 mEq/L (23-29); Chloride 96 mEq/L (98-107); Chol/HDL Ratio 2.5 (0-4.9); Cholesterol 114 mg/dL (< 200); Globulin 3.3 g/dL (2.4-3.5); Glucose 174 mg/dL (70-105); HDL Cholesterol 46 mg/dL (40-59); LDL Cholesterol,Calculated 57 mg/dL (0-99); Magnesium 1.7 mg/dL (1.6-2.6); Osmolality,Calculated 288 (280-300); Potassium 4.4 mEq/L (3.5-5.1); Sodium 135 mEq/L (136-145); Total Protein 7.1 g/dL (6.4-8.9); Triglycerides 53 mg/dL (< 150); eGFR For African Americans > 60 (> 60); eGFR For Non-African Americans > 60 (> 60)
[2017-03-26 02:08] LABS: Hemoglobin A1C 6.1 %
[2017-03-26] MEDS: Ipratropium/Albuterol Neb 3 ML IH SCH ×4 (03:30→21:49)
[2017-03-26 07:49] LABS: Adenovirus Not Detected (Not Detect); Bordetella Pertussis Not Detected (Not Detect); Chlamydophila pneumoniae Not Detected (Not Detect); Coronavirus 229E Not Detected (Not Detect); Coronavirus HKU1 Not Detected (Not Detect); Coronavirus NL63 Not Detected (Not Detect); Coronavirus OC43 Not Detected (Not Detect); Human Metapneumovirus Not Detected (Not Detect); Human Rhinovirus/Enterovirus Not Detected (Not Detect); Influenza A Subtype 2009 H1 Not Detected (Not Detect); Influenza A Untypeable Not Detected (Not Detect); Influenza B Not Detected (Not Detect); Mycoplasma pneumoniae Not Detected (Not Detect); Parainfluenza Virus 1 Not Detected (Not Detect); Parainfluenza Virus 2 Not Detected (Not Detect); Parainfluenza Virus 3 Not Detected (Not Detect); Parainfluenza Virus 4 Not Detected (Not Detect); Respiratory Syncytial Virus Not Detected (Not Detect)
[2017-03-26] MEDS: Lisinopril 20 MG TABLET PO SCH (08:53)
[2017-03-26] MEDS: Sucralfate 1 GM TABLET PO SCH ×4 (08:53→21:36)
[2017-03-26] MEDS: amLODIPine 5 MG TABLET PO SCH (08:53)
[2017-03-26] MEDS: Aspirin Enteric Coated 81 MG Tablet PO SCH (08:53)
[2017-03-26] MEDS: hydroCHLOROthiazide 25 MG TABLET PO SCH (08:53)
[2017-03-26] MEDS: Furosemide 40 MG/4 ML VIAL IVP SCH ×2 (08:53→15:19)
[2017-03-26] MEDS: MethylPREDNISolone 40 MG/ML VIAL IVP SCH (08:54)
[2017-03-26] MEDS: Insulin LISPRO 300 UNITS/3 ML VIAL SQ SCH ×4 (08:55→21:37)
--- NOTE | 2017-03-26 10:05 | Internal Med Progress Note ---
<Faheem Sharma - Last Filed: 03/26/17 15:02> Date of Encounter: 03/26/17 Time of Encounter: 09:43 - Assessment and plan (1) Syncope Current Visit: Yes Status: Acute Assessment and plan: acute syncopal episode yesterday morning, no loss of bladder control. has had 2 similar episodes during , per records. 06/2015 Carotid doppler L 40-45%, R minimal occlusion - fall precuations - up with assistance - cardiology consulted - consider holter/loop recorder on discharge; will follow cardiology's recommendation Qualifiers: Syncope type: unspecified Qualified Code(s): R55 - Syncope and collapse (2) Acute exacerbation of congestive heart failure Current Visit: Yes Status: Acute Assessment and plan: 01/2016 echo - LVEF 60-65%. diastolic HF. continues to have SOB, dyspnea, orthopena, 2+ bilateral pitting edema. known hx of CHF. sees dr. obrien outpatient. - fluid restrictions 1.5 L - cardiology consulted - increased lasix to IV Lasix 40 mg TID - strict I/O - daily weight - continous cardiac telemetry - O2 support currently on 3.5L - high risk for cardiac and/or respiratory distress d/t current exacerbations of CHF and COPD, complicated by suspected bronchitis. Qualifiers: Congestive heart failure type: diastolic Qualified Code(s): I50.33 - Acute on chronic diastolic (congestive) heart failure (3) Acute exacerbation of chronic obstructive airways disease Current Visit: Yes Status: Acute Assessment and plan: known hx of COPD - goal O2 >88% - supplemental O2 titration - continuous SpO2 monitoring - duonebs Q6 - continue azithromycin (4) DM2 (diabetes mellitus, type 2) Current Visit: Yes Status: Chronic Assessment and plan: Hx of chronic DM controlled by Metformin. Hold oral. A1C 6.1 01/24/18 - continue low-dose correction insulin sliding scale and hypoglycemic protocol. - monitor BG Qualifiers: Diabetes mellitus complication status: without complication Diabetes mellitus termite control servicer insulin use: without penitentiary use Qualified Code(s): E11.9 - Type 2 diabetes mellitus without complications (5) HLD (hyperlipidemia) Current Visit: Yes Status: Chronic Assessment and plan: Tri 53, Cholesterol 114, LDL 57, HDL 46. - continue home lipitor Qualifiers: Hyperlipidemia type: pure hypercholesterolemia Qualified Code(s): E78.00 - Pure hypercholesterolemia, unspecified (6) GERD (gastroesophageal reflux disease) Current Visit: Yes Status: Chronic Assessment and plan: currently controlled. - continue home omeprazole Qualifiers: Esophagitis presence: esophagitis presence not specified Qualified Code(s) : K21.9 - Gastro-esophageal reflux disease without esophagitis (7) Anxiety and depression Current Visit: Yes Status: Chronic Assessment and plan: currently controlled. continue home meds (8) Gout Current Visit: Yes Status: Chronic Assessment and plan: currently controlled. continue home allopurinol Qualifiers: Gout site: unspecified site Gout etiology: unspecified cause Chronicity: chronic Presence of tophus: without tophus Qualified Code(s): M1A.9XX0 - Chronic gout, unspecified, without tophus (tophi) (9) DVT prophylaxis Current Visit: Yes Status: Acute Assessment and plan: Continue patient's Coumadin with pharmacy dosing for DVT prophylaxis. Monitor patient for signs of bleeding. (10) HTN (hypertension) Current Visit: Yes Status: Chronic Assessment and plan: continue home accupril, amlodipine, carvedilol, and HCTZ. - continuous monitor of BP Qualifiers: Hypertension type: essential hypertension Qualified Code(s): I10 - Essential (primary) hypertension - Subjective Interval history: Ms Page is 81 yo F w/ PMHx of chronic atrial fibrillation, CHF, COPD, diabetes controlled with oral antihyperglycemic medications, HLD, and HCM presents from the ED with chief complaints of brief syncopal episode this morning while sitting in the car, shortness of breath, and dyspnea for the prior two days. Today she continues to report dyspnea, orthopnea, PND. denies fevers, chills, CP. - Constitutional Vitals: Temp Pulse Resp BP Pulse Ox 98 F 111 16 172/85 94 03/26/17 06:41 03/26/17 06:41 03/26/17 06:41 03/26/17 06:41 03/26/17 06:41 General appearance: Present: cooperative, mild distress, A&O X 3, pleasant - Neck Additional comments: no carotid bruits bilaterally - Respiratory Respiratory exam: Present: prolonged expiratory phase, wheezes Additional comments: crackles in bilateral lower lungs - Cardiovascular Cardiovascular exam: Present: RRR, +S1, +S2. Absent: diastolic murmur, gallop, rubs, systolic murmur - Psychiatric Psychiatric exam: Present: normal affect, normal mood Internal Medicine: Result - Labs CBC & Chem 7: 03/26/17 01:19 03/26/17 01:19 Labs: Short CBC 03/26/17 Range/Units 01:19 WBC 7.0 (4.3-11.1) K/mcL Hgb 9.3 L (11.5-15.4) g/dL Hct 30.2 L (35.3-44.9) % Plt Count 283 (140-400) K/mcL Neutrophils # 6.5 (1.6-8.9) K/mcL BMP 03/26/17 01:19 Sodium 135 L Potassium 4.4 Chloride 96 L Carbon Dioxide 33 H BUN 22 Creatinine 0.62 Glucose 174 H Calcium 9.6 Cardiac Enzymes 03/26/17 Range/Units 01:19 Troponin I < 0.03 (< 0.04) ng/mL Liver Function 03/26/17 Range/Units 01:19 Total Bilirubin 0.7 (0.3-1.0) mg/dL AST 15 (13-39) Units/L ALT 10 (7-52) Units/L Alkaline Phosphatase 59 (34-104) Units/L Albumin 3.8 (3.5-5.7) g/dL - ABG Interpretation ABG results: PT/INR, D-dimer PT 33.1 Seconds (9.4-12.1) H 03/26/17 01:19 Consult Discharge Plan - Plan Referrals: Lawson Patel MD [Primary Care Provider] - <Toby Acosta - Last Filed: 03/26/17 18:01> Date of Encounter: 03/26/17 - Assessment and plan (1) Acute and chronic respiratory failure with hypoxia Current Visit: Yes Status: Acute (2) Acute exacerbation of congestive heart failure Current Visit: Yes Status: Acute Qualifiers: Congestive heart failure type: diastolic Qualified Code(s): I50.33 - Acute on chronic diastolic (congestive) heart failure (3) Acute exacerbation of chronic obstructive airways disease Current Visit: Yes Status: Acute (4) Abdominal pain Current Visit: No Status: Acute Qualifiers: Abdominal location: generalized Qualified Code(s): R10.84 - Generalized abdominal pain (5) Paroxysmal atrial fibrillation Current Visit: Yes Status: Acute (6) Syncope Current Visit: Yes Status: Acute Qualifiers: Syncope type: unspecified Qualified Code(s): R55 - Syncope and collapse (7) Anemia Current Visit: Yes Status: Chronic Qualifiers: Anemia type: other cause Other causes of anemia: chronic disease, other Qualified Code(s): D63.8 - Anemia in other chronic diseases classified elsewhere (8) DM2 (diabetes mellitus, type 2) Current Visit: Yes Status: Chronic Qualifiers: Diabetes mellitus complication status: without complication Diabetes mellitus termite control servicer insulin use: without penitentiary use Qualified Code(s): E11.9 - Type 2 diabetes mellitus without complications (9) Anxiety and depression Current Visit: Yes Status: Chronic (10) GERD (gastroesophageal reflux disease) Current Visit: Yes Status: Chronic Qualifiers: Esophagitis presence: esophagitis presence not specified Qualified Code(s) : K21.9 - Gastro-esophageal reflux disease without esophagitis (11) HTN (hypertension) Current Visit: Yes Status: Chronic Qualifiers: Hypertension type: essential hypertension Qualified Code(s): I10 - Essential (primary) hypertension (12) HLD (hyperlipidemia) Current Visit: Yes Status: Chronic Qualifiers: Hyperlipidemia type: mixed hyperlipidemia Qualified Code(s): E78.2 - Mixed hyperlipidemia (13) Gout Current Visit: Yes Status: Chronic Qualifiers: Gout site: unspecified site Gout etiology: unspecified cause Chronicity: chronic Presence of tophus: without tophus Qualified Code(s): M1A.9XX0 - Chronic gout, unspecified, without tophus (tophi) - Constitutional Vitals: Temp Pulse Resp BP Pulse Ox 97.9 F 94 16 120/58 94 03/26/17 16:21 03/26/17 16:21 03/26/17 16:21 03/26/17 16:21 03/26/17 16:21 Internal Medicine: Result - Labs CBC & Chem 7: 03/26/17 01:19 03/26/17 01:19 Labs: Short CBC 03/26/17 Range/Units 01: WBC 7.0 (4.3-11.1) K/mcL Hgb 9.3 L (11.5-15.4) g/dL Hct 30.2 L (35.3-44.9) % Plt Count 283 (140-400) K/mcL Neutrophils # 6.5 (1.6-8.9) K/mcL BMP 03/26/17 01:19 Sodium 135 L Potassium 4.4 Chloride 96 L Carbon Dioxide 33 H BUN 22 Creatinine 0.62 Glucose 174 H Calcium 9.6 Cardiac Enzymes 03/26/17 Range/Units 01:19 Troponin I < 0.03 (< 0.04) ng/mL Liver Function 03/26/17 Range/Units 01:19 Total Bilirubin 0.7 (0.3-1.0) mg/dL AST 15 (13-39) Units/L ALT 10 (7-52) Units/L Alkaline Phosphatase 59 (34-104) Units/L Albumin 3.8 (3.5-5.7) g/dL - ABG Interpretation ABG results: PT/INR, D-dimer PT 33.1 Seconds (9.4-12.1) H 03/26/17 01:19 - Attending Attestation I examined this patient and my medical decision-making was reviewed with the Resident Physician on 03/26/17. I agree with the documented findings, disposition and treatment plan as described except to the extent set forth below. Ms Rodriguez is currently admitted due to CHF and syncope. She is having a lot of abdominal pain. She remains moderate to high risk due to potential for worsening clinical status. Ms Rodriguez is complaining of a lot diffuse abdominal pain. Says it is chronic but worse today. No fever. Bowels working. No nausea. Hinders breathing some. Daughter at bedside and says this has been going on. Exam Alert. Mod discomfort due to abd pain and dyspnea Mucus membranes dry Heart reg No wheeze Abd distended - appears to be air. Soft. Diffusely tender without rebound or rigidity I/P 1. Abd pain - ? gas. Start simethicone 2. CHF Further diagnoses and plan as above.
--- NOTE | 2017-03-26 10:17 | Cardiology Consult Note ---
<GeraldrobertSol hensley - Last Filed: 03/26/17 15:43> Date of Encounter: 03/26/17 Time of Encounter: 10:15 Assessment and Plan (1) Syncope Current Visit: Yes Status: Acute Echocardiogram from 01/29/2017 demonstrates LVEF of 60-65%, normal LV chamber size and function, mild concentric left ventricular hypertrophy, atypical septal motion consistent with bundle branch block, indeterminate diastolic function, mildly dilated right ventricle with normal function, severely dilated left atrium, severely dilated right atrium, mild aortic regurg regurgitation, severe tricuspid regurgitation, and moderate to severe pulmonary hypertension. Left heart catheter on 01/29/2017 demonstrates non-obstructive coronary artery disease with an EF of 65%. Carotid duplex analysis on 03/25/2017 until his drains a right internal carotid artery with 40-59% stenosis, and a left internal carotid artery with 40-59% stenosis. -Etiology of syncope unclear. Can consider extended ECAT vs loop record. -This can be done by EP prior or discharge or as an outpatient. -Will Discuss with patient. Qualifiers: Syncope type: unspecified Qualified Code(s): R55 - Syncope and collapse (2) Paroxysmal atrial fibrillation Current Visit: Yes Status: Acute Patient with irregularly irregular tachycardia. -steroids administered for COPD exacerbation likely contributing to tachycardia. -Increase coreg from 6.25 BID to 12.5 BID. -continue coumadin -Recommend follow up as an outpatient. (3) Acute exacerbation of congestive heart failure Current Visit: Yes Status: Acute 01/2017 Echocardiogram LVEF 60-65% as per above. Diastolic CHF/ BNP 258. -Continue diuresis, I/O, daily weights, and fluid restrictions. -Management per primary team Qualifiers: Congestive heart failure type: diastolic Qualified Code(s): I50.33 - Acute on chronic diastolic (congestive) heart failure (4) Acute exacerbation of chronic obstructive airways disease Current Visit: Yes Status: Acute Continue management per primary team. Discussion w patient/family: The assessment and plan as outlined above was discussed with the patient and/or family members who expressed understanding and agreement. All questions were answered. Thank you for involving us in the care of your patient. Please call with any questions. History of Present Illness Consult date: 03/26/17 Requesting physician: Faheem Sharma Consult reason: Diastolic CHF exacerbation/syncope Chief complaint: Dyspnea History of present illness: Ms. Rodriguez is a 81 year old female with PMHx of chronic atrial fibrillation, CHF, COPD, DM2, HLD, and hypertrophic cardiomyopathy who presented to [facility] on 2017 with chief complaints of syncope and dyspnea for prior 2 days. Patient initially reported chest discomfort without radiation as well as bilateral LE weakness. She reported recent history of cough and wheezing, but no fevers. Patient initially improved on aerosol breathing treatments in the ED. Patient appeared hypervolemic on physical exam and was recently hospitalized in January of 2017 for diastolic CHF exacerbation. She was started on fluid restriction and lasix was changed to IV 40 mg TID. Per syncopal episode, patient reported two similar episodes last January. Per review of medical record, patient had recent LHC which showed mild, nonobstructive CAD with normal LVEF. Most recent Carotid doppler from June 2015 with left sided occlusion of 40-45% and minimal right sided occlusion. Past Med Surg Social Fam HX - Past Medical History Attestation: Yes The following information was validated with the patient. Source: patient Medical history: atrial fibrillation, CHF, COPD, diabetes, hyperlipidemia, hypertension Psychiatric history: depression - Past Surgical History Surgical History: cataract, cholecystectomy, hysterectomy - Social History Smoking Status: Former smoker Smokeless Tobacco Status: No Alcohol use: none Drug use: none Current living situation: With Family - Family History Brother History Unknown: Yes Adopted: [place]: Inderjit Race: Family Member Ethnicity: Non- Twin of Family Member: Yes, Fraternal Living Status: Hx Family Cardiac Disorders: Yes Sister Name: Edith Kaba Race: Family Member Ethnicity: Non- Twin of Family Member: Yes, Fraternal Living Status: Still Living Age at : 50 Cause of : [place] Hx Family Cardiac Disorders: Yes ([place]) Mother Race: Family Member Ethnicity: Non- Living Status: Age at : 72 Cause of : Emphysema Hx Family Respiratory Disorders: Yes (Emphysema, TB) Hx Family Cancer: Yes (Basal cell skin cancer) Hx Family Endocrine Disorder: Yes (Cirrhosis) Father Race: Family Member Ethnicity: Non- Living Status: Age at : 70 Cause of : COPD Hx Family Respiratory Disorders: Yes (COPD, emphysema) Hx Family Endocrine Disorder: Yes (Cirrhosis) Medications and Allergies Allopurinol [Zyloprim] 300 mg PO QAM 10/11/14 [History] Atorvastatin Calcium [Lipitor] 20 mg PO QAM 10/11/14 [History] Quinapril HCl [Accupril] 40 mg PO QAM 10/11/14 [History] Diclofenac Sodium 1 appl TP QID PRN 01/28/17 [History] Escitalopram [Lexapro] 10 mg PO DAILY 01/28/17 [History] Aspirin Enteric Coated [Aspirin EC] 81 mg PO DAILY #30 tablet. 02/04/17 [Rx] Carvedilol [Coreg] 6.25 mg PO BIDWM #60 tablet 02/04/17 [Rx] Omeprazole [PriLOSEC] 40 mg PO DAILY #30 cap 02/04/17 [Rx] hydroCHLOROthiazide [Hydrochlorothiazide] 25 mg PO DAILY #30 tablet 02/04/17 [Rx ] Amlodipine Besylate 10 mg PO DAILY 03/25/17 [History] Furosemide [Lasix] 40 mg PO BID 03/25/17 [History] Lidocaine Patch [Lidoderm 5% patch] 2 each TP DAILY 03/25/17 [History] Oxycodone HCl/Acetaminophen [Percocet 5-325 mg Tablet] 1 tab PO Q6H PRN [History] Sucralfate [Carafate] 1 gm PO QID 03/25/17 [History] Warfarin Sodium [Coumadin] 6 mg PO SUMOTUTHSA 03/25/17 [History] Warfarin [Coumadin] 8 mg PO WEFR 03/25/17 [History] metFORMIN [Glucophage] 500 mg PO BIDWM 03/25/17 [History] 3 Allergy/AdvReac Type Severity Reaction Status Date / Time No Known Allergies Allergy Verified 01/28/17 13:58 All Systems Review: A 10-system review of systems was performed and is negative for pertinent findings except as documented above in the HPI. - Constitutional Constitutional: daytime sleepiness, frequent falls, weight gain, no fever(s) - Cardiovascular Cardiovascular: dyspnea at rest, dyspnea on exertion, irregular heart rhythm, syncope, no radiating jaw, neck or arm pain - Respiratory Respiratory: cough, dyspnea - Gastrointestinal Gastrointestinal: abdominal pain, no constipation, no diarrhea, no hematemesis, no hematochezia, no nausea - Musculoskeletal Musculoskeletal: no back pain - Neurological Neurological: no abnormal speech, no focal weakness, no memory loss Physical Examination Vital Signs, Last 4 Hours Temp Pulse Resp BP Pulse Ox 03/26/17 06:41 98 F 111 16 172/85 94 General: Conversant HEENT: Other (mucus membranes dry) Neck: No JVD, Normal carotid pulses Cardiac: Other (Tachycardia) Lungs: Other (Bibasilar crackles.) Neuro: Alert and responsive, No focal deficits noted Abdomen: Soft, Other (Diffuse upper abdominal quadrant tenderness) Musculoskeletal: No Chest Wall Tenderness Extremities: No Clubbing, No Cyanosis, Other (1+ pitting edema bilaterally) Results 03/26/17 01:19 03/26/17 01:19 Lab Results 03/26/17 03/26/17 03/26/17 01:19 01:19 01:19 WBC 7.0 Hgb 9.3 L Hct 30.2 L Plt Count 283 INR Sodium 135 L Potassium 4.4 Chloride 96 L Carbon Dioxide 33 H BUN 22 Creatinine 0.62 Glucose 174 H Calcium 9.6 Magnesium 1.7 Total Bilirubin 0.7 AST 15 ALT 10 Alkaline Phosphatase 59 Troponin I < 0.03 03/26/17 01:19 WBC Hgb Hct Plt Count INR 3.0 Sodium Potassium Chloride Carbon Dioxide BUN Creatinine Glucose Calcium Magnesium Total Bilirubin AST ALT Alkaline Phosphatase Troponin I Consult Discharge Plan - Plan Referrals: Lawson Patel MD [Primary Care Provider] - <BreannealtagraciaGrace - Last Filed: 03/26/17 18:02> Date of Encounter: 03/26/17 - Attending Attestation I examined this patient and my medical decision-making was reviewed with the Resident Physician. I agree with the documented findings, disposition and treatment plan. Impression: Ms. Rodriguez presents with 2-3 day history of SOB. Recently admitted for diastolic CHF. Has known PAF - presented with AF RVR with improved heart rates. Also with a COPD exacerbation. Also concerned about recent "syncopal" events. Patient states she's been having dizzy spells and thinks she may lose consciousness - noticed particularly with standing upright from a seated position. However, this most recent event occurred while she was a passenger in a car. She denies prodrome of chest pain or palpitations. LVEF normal. Recent LHC demonstrated mild, nonobstructive CAD. PLAN: Syncope: Etiology is unclear. By history taking, it may be orthostatic. However, recent events while in a car are not clear. We discussed consideration for extended telemetry monitoring such as an ECAT or LOOP recorder. The patient is interested in a LOOP recorder - does not want to wear an ECAT. Recommend consulting EP (Dr. Jd Barkley) on Wednesday if patient is still here. Otherwise, can consider consult as an outpatient. Check orthostatic vital signs. AFIB: Heart rates are better controlled with the increase in coreg which is also helping with BP control. Patient is anticoagulated on coumadin. Will sign off. Please re-consult Wednesday for EP consult if patient is still hospitalized. Assessment and Plan Discussion w patient/family: The assessment and plan as outlined above was discussed with the patient and/or family members who expressed understanding and agreement. All questions were answered. Thank you for involving us in the care of your patient. Please call with any questions. History of Present Illness History of present illness: Ms. Rodriguez is a 81 year old female All Systems Review: A 10-system review of systems was performed and is negative for pertinent findings except as documented above in the HPI. Physical Examination Vital Signs, Last 4 Hours Temp Pulse Resp BP Pulse Ox 03/26/17 16:21 97.9 F 94 16 120/58 94 03/26/17 15:50 18 91 Results 03/26/17 01:19 03/26/17 01:19 Lab Results 03/26/17 03/26/17 03/26/17 01:19 01:19 01:19 WBC 7.0 Hgb 9.3 L Hct 30.2 L Plt Count 283 INR Sodium 135 L Potassium 4.4 Chloride 96 L Carbon Dioxide 33 H BUN 22 Creatinine 0.62 Glucose 174 H Calcium 9.6 Magnesium 1.7 Total Bilirubin 0.7 AST 15 ALT 10 Alkaline Phosphatase 59 Troponin I < 0.03 03/26/17 01:19 WBC Hgb Hct Plt Count INR 3.0 Sodium Potassium Chloride Carbon Dioxide BUN Creatinine Glucose Calcium Magnesium Total Bilirubin AST ALT Alkaline Phosphatase Troponin I
[2017-03-26] MEDS: *HR* OxyCODONE/APAP 5/325 TABLET PO PRN ×2 (11:28→17:39)
[2017-03-26] MEDS ORDERED: Simethicone 40 MG/0.6 ML MLS PO PRN (11:50)
[2017-03-26] MEDS: predniSONE 20 MG TABLET PO SCH (17:29)
[2017-03-26] MEDS ORDERED: Warfarin perPT PO PRN (18:00)
[2017-03-26] MEDS ORDERED: *HR* Warfarin 3 MG TABLET PO ONE (18:00)
[2017-03-26] MEDS: Azithromycin 250 MG TABLET PO SCH (21:36)
[2017-03-27] MEDS: *HR* OxyCODONE/APAP 5/325 TABLET PO PRN ×2 (03:57→16:24)
[2017-03-27] MEDS: Ipratropium/Albuterol Neb 3 ML IH SCH ×4 (04:04→21:02)
[2017-03-27 04:42] LABS: Hematocrit 28.9 % (35.3-44.9); Hemoglobin 9.1 g/dL (11.5-15.4); Immature Granulocytes % 0.5 % (0-4); Lymphocytes # 0.7 K/mcL (0.6-4.6); Lymphocytes % 7.2 %; Mean Corpuscular HGB Conc 31.5 g/dL (31.6-35.5); Mean Corpuscular Hemoglobin 30.3 pg (28.0-33.3); Mean Corpuscular Volume 96.3 fL (83.0-100.0); Mean Platelet Volume 10.3 fL (9.4-12.4); Monocytes # 0.4 K/mcL (0.0-1.3); Monocytes % 4.2 %; Neutrophils # 8.5 K/mcL (1.6-8.9); Platelet Count 267 K/mcL (140-400); Red Cell Distribution Width 14.8 % (11.5-14.5); Segmented Neutrophils % 88.1 %
[2017-03-27 04:53] LABS: INR 3.7; Prothrombin Time 41.3 Seconds (9.4-12.1)
[2017-03-27 05:00] LABS: Alanine Aminotransferase 10 Units/L (7-52); Albumin 3.6 g/dL (3.5-5.7); Albumin/Globulin Ratio 1.2 (1.1-2.2); Alkaline Phosphatase 51 Units/L (34-104); Aspartate Amino Transferase 13 Units/L (13-39); BUN/Creatinine Ratio 42 (6-26); Bilirubin,Total 0.5 mg/dL (0.3-1.0); Blood Urea Nitrogen 36 mg/dL (8-23); Calcium 9.5 mg/dL (8.6-10.3); Carbon Dioxide 33 mEq/L (23-29); Chloride 94 mEq/L (98-107); Globulin 2.9 g/dL (2.4-3.5); Glucose 173 mg/dL (70-105); Osmolality,Calculated 286 (280-300); Potassium 4.5 mEq/L (3.5-5.1); Sodium 132 mEq/L (136-145); Total Protein 6.5 g/dL (6.4-8.9); eGFR For African Americans > 60 (> 60); eGFR For Non-African Americans > 60 (> 60)
[2017-03-27] MEDS: Aspirin Enteric Coated 81 MG Tablet PO SCH (08:53)
[2017-03-27] MEDS: Lisinopril 20 MG TABLET PO SCH (08:53)
[2017-03-27] MEDS: predniSONE 20 MG TABLET PO SCH (08:53)
[2017-03-27] MEDS: Sucralfate 1 GM TABLET PO SCH ×4 (08:53→21:39)
[2017-03-27] MEDS: hydroCHLOROthiazide 25 MG TABLET PO SCH (08:53)
[2017-03-27] MEDS: amLODIPine 5 MG TABLET PO SCH (08:53)
[2017-03-27] MEDS: Insulin LISPRO 300 UNITS/3 ML VIAL SQ SCH ×4 (08:54→21:39)
[2017-03-27] MEDS: Furosemide 40 MG/4 ML VIAL IVP SCH ×3 (08:54→17:40)
[2017-03-27] MEDS: Acetaminophen 325 MG TABLET PO PRN (08:59)
--- NOTE | 2017-03-27 09:40 | Electrocardiograph Report ---
[place] [id number] Test Date: 2017-03-25 Pat Name: Denise Rodriguez Department: 104 Room: 2NE23 Gender: F Medical Manager: : [id number] Requested By: Vinicius Brunner Order Number: [id number] Reading MD: Alen Wilson DO Measurements Intervals Carlin Rate: 67 P: MD: 0 QRS: 10 QRSD: 165 T: 9 QT: 437 QTc: 453 Interpretive Statements ATRIAL FIBRILLATION RIGHT BUNDLE BRANCH BLOCK Electronically Signed On 03-27-2017 9:38:42 EST by Alen Wilson DO
--- NOTE | 2017-03-27 10:20 | Internal Med Progress Note ---
Date of Encounter: 03/27/17 Time of Encounter: 10:20 - Assessment and plan (1) Acute and chronic respiratory failure with hypoxia Current Visit: Yes Status: Resolved Assessment and plan: Overall seems to be improving today. Able to take deeper breaths. Continue wean oxygen and supportive care. (2) Acute exacerbation of congestive heart failure Current Visit: Yes Status: Acute Assessment and plan: 01/2016 echo - LVEF 60-65%. diastolic HF. Slightly better today -Continue diuresis - appreciate card input - slowly improving. Will taper meds as able Qualifiers: Congestive heart failure type: diastolic Qualified Code(s): I50.33 - Acute on chronic diastolic (congestive) heart failure (3) Acute exacerbation of chronic obstructive airways disease Current Visit: Yes Status: Acute Assessment and plan: known hx of COPD - goal O2 >88% - supplemental O2 titration - continuous SpO2 monitoring - duonebs Q6 - taper abx as able (4) Gastritis Current Visit: No Status: Chronic Assessment and plan: Continues to have pain but somewhat better with simethicone. Qualifiers: Gastritis type: other gastritis Chronicity: acute Gastritis bleeding: without bleeding Qualified Code(s): K29.00 - Acute gastritis without bleeding (5) Abdominal pain Current Visit: No Status: Acute Assessment and plan: As above. Qualifiers: Abdominal location: generalized Qualified Code(s): R10.84 - Generalized abdominal pain (6) Syncope Current Visit: Yes Status: Acute Assessment and plan: acute syncopal episode yesterday morning, no loss of bladder control. has had 2 similar episodes during , per records. 06/2015 Carotid doppler L 40-45%, R minimal occlusion - fall precuations - up with assistance - cardiology consulted - will need longer term monitoring as outpatient - consider holter/loop recorder on discharge; will follow cardiology's recommendation Qualifiers: Syncope type: unspecified Qualified Code(s): R55 - Syncope and collapse (7) Paroxysmal atrial fibrillation Current Visit: Yes Status: Chronic Assessment and plan: Rate controlled at this time Continue tele monitoring. (8) Anemia Current Visit: Yes Status: Chronic Assessment and plan: Monitoring H/H Qualifiers: Anemia type: other cause Other causes of anemia: chronic disease, other Qualified Code(s): D63.8 - Anemia in other chronic diseases classified elsewhere (9) DM2 (diabetes mellitus, type 2) Current Visit: Yes Status: Chronic Assessment and plan: Hx of chronic DM controlled by Metformin. Hold oral. A1C 6.1 01/24/18 - continue low-dose correction insulin sliding scale and hypoglycemic protocol. - monitor BG Blood sugar better controlled today Qualifiers: Diabetes mellitus complication status: without complication Diabetes mellitus skilled nursing insulin use: without marine oil terminal superintendent use Qualified Code(s): E11.9 - Type 2 diabetes mellitus without complications (10) Anxiety and depression Current Visit: Yes Status: Chronic Assessment and plan: currently controlled. continue home meds (11) GERD (gastroesophageal reflux disease) Current Visit: Yes Status: Chronic Assessment and plan: currently controlled. - continue home omeprazole Qualifiers: Esophagitis presence: esophagitis presence not specified Qualified Code(s) : K21.9 - Gastro-esophageal reflux disease without esophagitis (12) HTN (hypertension) Current Visit: Yes Status: Chronic Assessment and plan: continue home accupril, amlodipine, carvedilol, and HCTZ. - continuous monitor of BP Qualifiers: Hypertension type: essential hypertension Qualified Code(s): I10 - Essential (primary) hypertension (13) HLD (hyperlipidemia) Current Visit: Yes Status: Chronic Assessment and plan: Tri 53, Cholesterol 114, LDL 57, HDL 46. - continue home lipitor Qualifiers: Hyperlipidemia type: mixed hyperlipidemia Qualified Code(s): E78.2 - Mixed hyperlipidemia (14) Gout Current Visit: Yes Status: Chronic Assessment and plan: currently controlled. continue home allopurinol Qualifiers: Gout site: unspecified site Gout etiology: unspecified cause Chronicity: chronic Presence of tophus: without tophus Qualified Code(s): M1A.9XX0 - Chronic gout, unspecified, without tophus (tophi) - Subjective Interval history: Ms Rodriguez is currently admitted for acute syncopal episode and dyspnea. She remains moderate to high risk due to potential for worsening clinical status. Ms Rodriguez is feeling a little better today. No fever at this time. Thinks simethicone helped her abdominal pain some. Slept OK last night. Still having a lot of dyspnea with movement. - Constitutional Vitals: Temp Pulse Resp BP Pulse Ox 98.1 F 91 18 128/74 98 03/27/17 07:00 03/27/17 07:00 03/27/17 07:00 03/27/17 07:00 03/27/17 07:00 General appearance: Present: cooperative, A&O X 3, pleasant, answers questions appropriately - Head Head exam: Present: atraumatic, normocephalic - Eye Eye exam: Present: EOMI, conjuntiva pink - ENT ENT exam: Present: mucous membranes dry - Respiratory Respiratory exam: Present: decreased breath sounds, rales, rhonchi - Cardiovascular Cardiovascular exam: Present: irregular rhythm. Absent: tachycardia - GI/Abdominal GI/Abdominal exam: Present: distended, soft, tenderness - Extremities Exam Extremities exam: Present: pedal edema, warm. Absent: tenderness - Neurological Exam Neurological exam: Present: alert, oriented X3, no focal deficits - Skin Skin exam: Present: dry, warm. Absent: rash Internal Medicine: Result - Labs CBC & Chem 7: 03/27/17 04:25 03/27/17 04:25 Labs: Short CBC 03/27/17 Range/Units 04:25 WBC 9.7 (4.3-11.1) K/mcL Hgb 9.1 L (11.5-15.4) g/dL Hct 28.9 L (35.3-44.9) % Plt Count 267 (140-400) K/mcL Neutrophils # 8.5 (1.6-8.9) K/mcL BMP 03/27/17 04:25 Sodium 132 L Potassium 4.5 Chloride 94 L Carbon Dioxide 33 H BUN 36 H Creatinine 0.85 Glucose 173 H Calcium 9.5 Liver Function 03/27/17 Range/Units 04:25 Total Bilirubin 0.5 (0.3-1.0) mg/dL AST 13 (13-39) Units/L ALT 10 (7-52) Units/L Alkaline Phosphatase 51 (34-104) Units/L Albumin 3.6 (3.5-5.7) g/dL - ABG Interpretation ABG results: PT/INR, D-dimer PT 41.3 Seconds (9.4-12.1) H 03/27/17 04:25 Consult Discharge Plan - Plan Referrals: Lawson Patel MD [Primary Care Provider] -
[2017-03-27] MEDS: Simethicone 80 MG TAB.CHEW PO SCH ×2 (17:40→21:38)
[2017-03-27] MEDS: Azithromycin 250 MG TABLET PO SCH (21:38)
[2017-03-28] MEDS: Ipratropium/Albuterol Neb 3 ML IH SCH ×4 (04:10→22:23)
[2017-03-28] MEDS: Nystatin POWDER 30 GM BOTTLE TP SCH ×4 (04:54→20:19)
[2017-03-28] MEDS: *HR* OxyCODONE/APAP 5/325 TABLET PO PRN ×3 (04:57→23:03)
[2017-03-28 06:05] LABS: Eosinophils % 0.1 %; Hematocrit 30.2 % (35.3-44.9); Hemoglobin 9.4 g/dL (11.5-15.4); Immature Granulocytes % 0.4 % (0-4); Lymphocytes # 1.2 K/mcL (0.6-4.6); Lymphocytes % 13.8 %; Mean Corpuscular HGB Conc 31.1 g/dL (31.6-35.5); Mean Corpuscular Hemoglobin 29.9 pg (28.0-33.3); Mean Corpuscular Volume 96.2 fL (83.0-100.0); Mean Platelet Volume 10.5 fL (9.4-12.4); Monocytes # 0.9 K/mcL (0.0-1.3); Monocytes % 11.2 %; Neutrophils # 6.2 K/mcL (1.6-8.9); Nucleated Red Blood Cells 0.4 /100 WBC (0); Platelet Count 277 K/mcL (140-400); Red Blood Count 3.14 M/mcL (3.82-4.97); Red Cell Distribution Width 14.7 % (11.5-14.5); Segmented Neutrophils % 74.5 %
[2017-03-28 06:06] LABS: Prothrombin Time 33.5 Seconds (9.4-12.1)
[2017-03-28 06:22] LABS: Alanine Aminotransferase 12 Units/L (7-52); Albumin 3.6 g/dL (3.5-5.7); Albumin/Globulin Ratio 1.3 (1.1-2.2); Alkaline Phosphatase 45 Units/L (34-104); Aspartate Amino Transferase 18 Units/L (13-39); BUN/Creatinine Ratio 44 (6-26); Bilirubin,Total 0.5 mg/dL (0.3-1.0); Blood Urea Nitrogen 31 mg/dL (8-23); Calcium 9.4 mg/dL (8.6-10.3); Carbon Dioxide 38 mEq/L (23-29); Chloride 94 mEq/L (98-107); Globulin 2.8 g/dL (2.4-3.5); Glucose 104 mg/dL (70-105); Osmolality,Calculated 289 (280-300); Potassium 3.7 mEq/L (3.5-5.1); Sodium 136 mEq/L (136-145); Total Protein 6.4 g/dL (6.4-8.9); eGFR For African Americans > 60 (> 60); eGFR For Non-African Americans > 60 (> 60)
[2017-03-28] MEDS: Aspirin Enteric Coated 81 MG Tablet PO SCH (08:57)
[2017-03-28] MEDS: Simethicone 80 MG TAB.CHEW PO SCH ×4 (08:57→20:19)
[2017-03-28] MEDS: hydroCHLOROthiazide 25 MG TABLET PO SCH (08:57)
[2017-03-28] MEDS: Sucralfate 1 GM TABLET PO SCH ×4 (08:57→20:19)
[2017-03-28] MEDS: Lisinopril 20 MG TABLET PO SCH (08:57)
[2017-03-28] MEDS: predniSONE 20 MG TABLET PO SCH (08:57)
[2017-03-28] MEDS: Furosemide 40 MG/4 ML VIAL IVP SCH ×3 (08:58→16:03)
[2017-03-28] MEDS: Insulin LISPRO 300 UNITS/3 ML VIAL SQ SCH ×4 (08:58→23:03)
[2017-03-28] MEDS: amLODIPine 5 MG TABLET PO SCH (08:58)
--- NOTE | 2017-03-28 17:03 | Internal Med Progress Note ---
Date of Encounter: 03/28/17 Time of Encounter: 16:00 - Assessment and plan (1) Acute and chronic respiratory failure with hypoxia Current Visit: Yes Status: Resolved Assessment and plan: Continues to slowly improve. Continue to wean oxygen as able Continue aerosols and supportive care (2) Acute exacerbation of congestive heart failure Current Visit: Yes Status: Acute Assessment and plan: 01/2016 echo - LVEF 60-65%. diastolic HF. Slightly better today -Continues to slowly improve. - Anticipate decrease lasix tomorrow. Qualifiers: Congestive heart failure type: diastolic Qualified Code(s): I50.33 - Acute on chronic diastolic (congestive) heart failure (3) Acute exacerbation of chronic obstructive airways disease Current Visit: Yes Status: Acute Assessment and plan: known hx of COPD - goal O2 >88% - supplemental O2 titration - continuous SpO2 monitoring - duonebs Q6 - taper abx as able Will taper steroids as well Add Ceftriaxone today. (4) Gastritis Current Visit: No Status: Chronic Assessment and plan: Continues to have pain. Seems to be better with simethicone. Qualifiers: Gastritis type: other gastritis Chronicity: acute Gastritis bleeding: without bleeding Qualified Code(s): K29.00 - Acute gastritis without bleeding (5) Abdominal pain Current Visit: No Status: Acute Assessment and plan: As above. Qualifiers: Abdominal location: generalized Qualified Code(s): R10.84 - Generalized abdominal pain (6) Syncope Current Visit: Yes Status: Acute Assessment and plan: acute syncopal episode yesterday morning, no loss of bladder control. has had 2 similar episodes during , per records. 06/2015 Carotid doppler L 40-45%, R minimal occlusion - fall precuations - up with assistance - cardiology consulted - will need longer term monitoring as outpatient - consider holter/loop recorder on discharge; will follow cardiology's recommendation Will arrange loop recorder at discharge. Qualifiers: Syncope type: unspecified Qualified Code(s): R55 - Syncope and collapse (7) Paroxysmal atrial fibrillation Current Visit: Yes Status: Chronic Assessment and plan: Rate controlled at this time Continue tele monitoring. (8) Anemia Current Visit: Yes Status: Chronic Assessment and plan: Monitoring H/H Qualifiers: Anemia type: other cause Other causes of anemia: chronic disease, other Qualified Code(s): D63.8 - Anemia in other chronic diseases classified elsewhere (9) DM2 (diabetes mellitus, type 2) Current Visit: Yes Status: Chronic Assessment and plan: Hx of chronic DM controlled by Metformin. Hold oral. A1C 6.1 01/24/18 - continue low-dose correction insulin sliding scale and hypoglycemic protocol. - monitor BG Beginning dose of Levimir at night today. Qualifiers: Diabetes mellitus complication status: without complication Diabetes mellitus terminal worker insulin use: without halfway use Qualified Code(s): E11.9 - Type 2 diabetes mellitus without complications (10) Anxiety and depression Current Visit: Yes Status: Chronic Assessment and plan: currently controlled. continue home meds (11) GERD (gastroesophageal reflux disease) Current Visit: Yes Status: Chronic Assessment and plan: currently controlled. - continue home omeprazole Qualifiers: Esophagitis presence: esophagitis presence not specified Qualified Code(s) : K21.9 - Gastro-esophageal reflux disease without esophagitis (12) HTN (hypertension) Current Visit: Yes Status: Chronic Assessment and plan: continue home accupril, amlodipine, carvedilol, and HCTZ. - continuous monitor of BP Qualifiers: Hypertension type: essential hypertension Qualified Code(s): I10 - Essential (primary) hypertension (13) HLD (hyperlipidemia) Current Visit: Yes Status: Chronic Assessment and plan: Tri 53, Cholesterol 114, LDL 57, HDL 46. - continue home lipitor Qualifiers: Hyperlipidemia type: mixed hyperlipidemia Qualified Code(s): E78.2 - Mixed hyperlipidemia (14) Gout Current Visit: Yes Status: Chronic Assessment and plan: currently controlled. continue home allopurinol Qualifiers: Gout site: unspecified site Gout etiology: unspecified cause Chronicity: chronic Presence of tophus: without tophus Qualified Code(s): M1A.9XX0 - Chronic gout, unspecified, without tophus (tophi) - Subjective Interval history: Ms Rodriguez is currently admitted for acute syncopal episode and dyspnea. She remains moderate to high risk due to potential for worsening clinical status. Ms Rodriguez is lying in bed. She feels her breathing and pain are somewhat better. She is agreeable to go to rehab at this time. No fever or chills. Has been up and about some as well. - Constitutional Vitals: Temp Pulse Resp BP Pulse Ox 97.8 F 74 15 113/73 93 03/28/17 12:30 03/28/17 12:30 03/28/17 12:30 03/28/17 12:30 03/28/17 10:56 General appearance: Present: cooperative, A&O X 3, pleasant, answers questions appropriately - Head Head exam: Present: atraumatic, normocephalic - Eye Eye exam: Present: EOMI, conjuntiva pink - ENT ENT exam: Present: mucous membranes dry - Respiratory Respiratory exam: Present: decreased breath sounds, rales, rhonchi - Cardiovascular Cardiovascular exam: Present: irregular rhythm. Absent: tachycardia - GI/Abdominal GI/Abdominal exam: Present: soft, tenderness, no peritoneal signs - Extremities Exam Extremities exam: Present: pedal edema, warm. Absent: tenderness - Neurological Exam Neurological exam: Present: alert, oriented X3, no focal deficits - Skin Skin exam: Present: dry, warm. Absent: rash Internal Medicine: Result - Labs CBC & Chem 7: 03/28/17 05:43 03/28/17 05:43 Labs: Short CBC 03/28/17 Range/Units 05:43 WBC 8.3 (4.3-11.1) K/mcL Hgb 9.4 L (11.5-15.4) g/dL Hct 30.2 L (35.3-44.9) % Plt Count 277 (140-400) K/mcL Neutrophils # 6.2 (1.6-8.9) K/mcL BMP 03/28/17 05:43 Sodium 136 Potassium 3.7 Chloride 94 L Carbon Dioxide 38 H BUN 31 H Creatinine 0.70 Glucose 104 Calcium 9.4 Liver Function 03/28/17 Range/Units 05:43 Total Bilirubin 0.5 (0.3-1.0) mg/dL AST 18 (13-39) Units/L ALT 12 (7-52) Units/L Alkaline Phosphatase 45 (34-104) Units/L Albumin 3.6 (3.5-5.7) g/dL - ABG Interpretation ABG results: PT/INR, D-dimer PT 33.5 Seconds (9.4-12.1) H 03/28/17 05:43 Consult Discharge Plan - Plan Referrals: Lawson Patel MD [Primary Care Provider] -
[2017-03-28] MEDS: Acetaminophen 325 MG TABLET PO PRN (20:18)
[2017-03-28] MEDS: Azithromycin 250 MG TABLET PO SCH (20:19)
[2017-03-28] MEDS: cefTRIAXone 1,000 MG in Water for inj. (sterile) 20 ML 10 ML IVP SCH (20:24)
[2017-03-28] MEDS ORDERED: Insulin DETEMIR 100 UNIT/ML X5UNITS SQ SCH (21:00)
[2017-03-29] MEDS: Ipratropium/Albuterol Neb 3 ML IH SCH ×3 (04:07→16:04)
[2017-03-29 04:42] LABS: Eosinophils % 0.1 %; Hematocrit 31.3 % (35.3-44.9); Hemoglobin 9.9 g/dL (11.5-15.4); Immature Granulocytes % 0.3 % (0-4); Lymphocytes # 1.2 K/mcL (0.6-4.6); Lymphocytes % 13.5 %; Mean Corpuscular HGB Conc 31.6 g/dL (31.6-35.5); Mean Corpuscular Hemoglobin 30.2 pg (28.0-33.3); Mean Corpuscular Volume 95.4 fL (83.0-100.0); Mean Platelet Volume 10.2 fL (9.4-12.4); Monocytes % 11.2 %; Neutrophils # 6.5 K/mcL (1.6-8.9); Platelet Count 280 K/mcL (140-400); Red Blood Count 3.28 M/mcL (3.82-4.97); Red Cell Distribution Width 14.6 % (11.5-14.5); Segmented Neutrophils % 74.9 %
[2017-03-29 05:03] LABS: Alanine Aminotransferase 18 Units/L (7-52); Albumin 3.6 g/dL (3.5-5.7); Albumin/Globulin Ratio 1.3 (1.1-2.2); Alkaline Phosphatase 54 Units/L (34-104); Aspartate Amino Transferase 22 Units/L (13-39); BUN/Creatinine Ratio 48 (6-26); Bilirubin,Total 0.5 mg/dL (0.3-1.0); Blood Urea Nitrogen 36 mg/dL (8-23); Calcium 9.5 mg/dL (8.6-10.3); Carbon Dioxide 36 mEq/L (23-29); Chloride 93 mEq/L (98-107); Globulin 2.8 g/dL (2.4-3.5); Glucose 151 mg/dL (70-105); Osmolality,Calculated 293 (280-300); Potassium 3.3 mEq/L (3.5-5.1); Sodium 136 mEq/L (136-145); Total Protein 6.4 g/dL (6.4-8.9); eGFR For African Americans > 60 (> 60); eGFR For Non-African Americans > 60 (> 60)
[2017-03-29] MEDS: *HR* OxyCODONE/APAP 5/325 TABLET PO PRN ×2 (06:02→11:57)
[2017-03-29] MEDS: cefTRIAXone 1,000 MG in Water for inj. (sterile) 20 ML 10 ML IVP SCH (08:41)
[2017-03-29] MEDS: Furosemide 40 MG/4 ML VIAL IVP SCH ×2 (08:42→11:57)
[2017-03-29] MEDS: Simethicone 80 MG TAB.CHEW PO SCH ×2 (08:43→11:57)
[2017-03-29] MEDS: hydroCHLOROthiazide 25 MG TABLET PO SCH (08:43)
[2017-03-29] MEDS: Lisinopril 20 MG TABLET PO SCH (08:43)
[2017-03-29] MEDS: Sucralfate 1 GM TABLET PO SCH ×2 (08:43→11:57)
[2017-03-29] MEDS: amLODIPine 5 MG TABLET PO SCH (08:43)
[2017-03-29] MEDS: predniSONE 20 MG TABLET PO SCH (08:43)
[2017-03-29] MEDS: Aspirin Enteric Coated 81 MG Tablet PO SCH (08:44)
[2017-03-29] MEDS: Insulin LISPRO 300 UNITS/3 ML VIAL SQ SCH ×2 (08:44→11:57)
[2017-03-29] MEDS: Nystatin POWDER 30 GM BOTTLE TP SCH (08:44)
--- NOTE | 2017-03-29 10:47 | Discharge Summary ---
<Faheem Sharma - Last Filed: 03/29/17 14:41> Date of Encounter: 03/29/17 Time of Encounter: 10:40 - Discharge Diagnosis (1) Syncope Priority: Primary Status: Acute Qualifiers: Syncope type: unspecified Qualified Code(s): R55 - Syncope and collapse (2) Acute exacerbation of congestive heart failure Priority: Secondary Status: Acute Qualifiers: Congestive heart failure type: diastolic Qualified Code(s): I50.33 - Acute on chronic diastolic (congestive) heart failure (3) Acute exacerbation of chronic obstructive airways disease Priority: Secondary Status: Acute (4) DM2 (diabetes mellitus, type 2) Priority: Secondary Status: Chronic Qualifiers: Diabetes mellitus complication status: without complication Diabetes mellitus group home insulin use: without group home use Qualified Code(s): E11.9 - Type 2 diabetes mellitus without complications (5) HLD (hyperlipidemia) Priority: Secondary Status: Chronic Qualifiers: Hyperlipidemia type: mixed hyperlipidemia Qualified Code(s): E78.2 - Mixed hyperlipidemia (6) GERD (gastroesophageal reflux disease) Priority: Secondary Status: Chronic Qualifiers: Esophagitis presence: esophagitis presence not specified Qualified Code(s) : K21.9 - Gastro-esophageal reflux disease without esophagitis (7) Anxiety and depression Priority: Secondary Status: Chronic (8) Gout Priority: Secondary Status: Chronic Qualifiers: Gout site: unspecified site Gout etiology: unspecified cause Chronicity: chronic Presence of tophus: without tophus Qualified Code(s): M1A.9XX0 - Chronic gout, unspecified, without tophus (tophi) (9) DVT prophylaxis Priority: Secondary Status: Acute (10) HTN (hypertension) Priority: Secondary Status: Chronic Qualifiers: Hypertension type: essential hypertension Qualified Code(s): I10 - Essential (primary) hypertension - Discharge Medications Home Medications: Allopurinol [Zyloprim] 300 mg PO QAM 10/11/14 [History] Atorvastatin Calcium [Lipitor] 20 mg PO QAM 10/11/14 [History] Quinapril HCl [Accupril] 40 mg PO QAM 10/11/14 [History] Diclofenac Sodium 1 appl TP QID PRN 01/28/17 [History] Escitalopram [Lexapro] 10 mg PO DAILY 01/28/17 [History] Aspirin Enteric Coated [Aspirin EC] 81 mg PO DAILY #30 tablet. 02/04/17 [Rx] Carvedilol [Coreg] 6.25 mg PO BIDWM #60 tablet 02/04/17 [Rx] Omeprazole [PriLOSEC] 40 mg PO DAILY #30 cap 02/04/17 [Rx] hydroCHLOROthiazide [Hydrochlorothiazide] 25 mg PO DAILY #30 tablet 02/04/17 [Rx ] Amlodipine Besylate 10 mg PO DAILY 03/25/17 [History] Furosemide [Lasix] 40 mg PO BID 03/25/17 [History] Lidocaine Patch [Lidoderm 5% patch] 2 each TP DAILY 03/25/17 [History] Oxycodone HCl/Acetaminophen [Percocet 5-325 mg Tablet] 1 tab PO Q6H PRN [History] Sucralfate [Carafate] 1 gm PO QID 03/25/17 [History] Warfarin Sodium [Coumadin] 6 mg PO SUMOTUTHSA 03/25/17 [History] Warfarin [Coumadin] 8 mg PO WEFR 03/25/17 [History] metFORMIN [Glucophage] 500 mg PO BIDWM 03/25/17 [History] Allergies/Adverse Reactions: 3 Allergy/AdvReac Type Severity Reaction Status Date / Time No Known Allergies Allergy Verified 01/28/17 13:58 Date of admission: 03/25/17 23:25 Primary care physician: Lawson Patel MD Consults: 03/26/17 09:41 Consult to Cardiology [CONS] Routine Comment: Consulting Provider: [facility] Reason for Consult: exacerbation CHF/syncope. f/u carotid duplex Call Completed: Yes - Patient Status Disposition: Home Health Service Condition: Fair Functional capacity at discharge: independent ambulation Overall status at discharge: patient is back to baseline - Ambulatory Orders Ambulatory Orders: CL Insert Loop Recorder [CL] Time Frame: 1 Day, Facility: [facility], Location: [facility] - Discharge Instructions Instructions: Warfarin (By mouth), Heart Failure (DC), Chronic Obstructive Pulmonary Disease (DC) Follow Up With: Lawson Patel MD [Primary Care Provider] - 04/02/17 1:00 pm Jd Barkley MD [Partnered Physician] - - Diet and Activity Activity: increase activity as tolerated Diet: low salt diet Hospital course: Ms. Rodriguez is a 81 year old female w/ past medical history of A. fib on Coumadin, CHF, COPD on 2 L of home oxygen, hypertension, hyperlipidemia presented to [facility] ED for evaluation of chest pain and syncope. Patient was on the way to her coumadin clinic when daughter noticed patient had slumped over and started "bubbling" from her mouth. She had two similar episodes during thanksgiving. Patient had SOB, dyspnea, orthopena, increased pitting edema bilaterally in the last few days. Patient was started on 40 mg IV lasix BID, and provided respiratory support. Patient was believed to be in acute respiratory failure with hypoxia from COPD, and acute exacerbation of CHF. Patient last echo was on 01/29/2017 LVEFF 60-65%. Patient's SOB slowly improved, and by day 5, patients SOB symptoms resolved. Carotid duplex was performed during hospitalization and LUI 40-59% and LIC 40-59 % stenosis. Etiology for syncopal episodes unclear. Patient to have outpatient loop outpatient. During hospitalization patient was found to be in afib most likely due to steroid administration from COPD exacerbation treatment. Coreg was increased to 12.5 BID, and her coumadin was continued. Afib resolved. Patient to restart all home meds and to have follow up with EP for loop recorder , and PCP w/in 1 week Time spent discussing smoking cessation with patient: more than 10 minutes - Time Spent with Patient Total time spent providing and/or coordinating discharge services: Greater than 30 minutes - Constitutional Vitals: Temp Pulse Resp BP Pulse Ox 97.5 F L 83 18 144/81 97 03/29/17 07:40 03/29/17 07:40 03/29/17 07:40 03/29/17 07:40 03/29/17 07:40 General appearance: Present: cooperative, A&O X 3, pleasant, answers questions appropriately - Head Head exam: Present: atraumatic, normocephalic - Respiratory Respiratory exam: Present: CTAB, prolonged expiratory phase. Absent: accessory muscle use, rales, rhonchi, wheezes - Cardiovascular Cardiovascular exam: Present: RRR, +S1, +S2. Absent: diastolic murmur, gallop, rubs, systolic murmur - GI/Abdominal GI/Abdominal exam: Present: normal bowel sounds, soft, no peritoneal signs. Absent: distended, tenderness - Psychiatric Psychiatric exam: Present: normal affect, normal mood <Toby Acosta - Last Filed: 03/29/17 18:44> Date of Encounter: 03/29/17 - Discharge Diagnosis (1) Acute and chronic respiratory failure with hypoxia Priority: Primary Status: Resolved (2) Acute exacerbation of congestive heart failure Status: Acute Qualifiers: Congestive heart failure type: diastolic Qualified Code(s): I50.33 - Acute on chronic diastolic (congestive) heart failure (3) Acute exacerbation of chronic obstructive airways disease Status: Acute (4) Gastritis Priority: Secondary Status: Chronic Qualifiers: Gastritis type: other gastritis Chronicity: acute Gastritis bleeding: without bleeding Qualified Code(s): K29.00 - Acute gastritis without bleeding (5) Abdominal pain Priority: Secondary Status: Acute Qualifiers: Abdominal location: generalized Qualified Code(s): R10.84 - Generalized abdominal pain (6) Syncope Priority: Secondary Status: Acute Qualifiers: Syncope type: unspecified Qualified Code(s): R55 - Syncope and collapse (7) Paroxysmal atrial fibrillation Priority: Secondary Status: Chronic (8) Anemia Priority: Secondary Status: Chronic Qualifiers: Anemia type: other cause Other causes of anemia: chronic disease, other Qualified Code(s): D63.8 - Anemia in other chronic diseases classified elsewhere (9) DM2 (diabetes mellitus, type 2) Status: Chronic Qualifiers: Diabetes mellitus complication status: without complication Diabetes mellitus group home insulin use: without group home use Qualified Code(s): E11.9 - Type 2 diabetes mellitus without complications (10) Anxiety and depression Status: Chronic (11) GERD (gastroesophageal reflux disease) Status: Chronic Qualifiers: Esophagitis presence: esophagitis presence not specified Qualified Code(s) : K21.9 - Gastro-esophageal reflux disease without esophagitis (12) HTN (hypertension) Status: Chronic Qualifiers: Hypertension type: essential hypertension Qualified Code(s): I10 - Essential (primary) hypertension (13) HLD (hyperlipidemia) Status: Chronic Qualifiers: Hyperlipidemia type: mixed hyperlipidemia Qualified Code(s): E78.2 - Mixed hyperlipidemia (14) Gout Status: Chronic Qualifiers: Gout site: unspecified site Gout etiology: unspecified cause Chronicity: chronic Presence of tophus: without tophus Qualified Code(s): M1A.9XX0 - Chronic gout, unspecified, without tophus (tophi) Date of admission: 03/25/17 23:25 Primary care physician: Lawson Patel MD Consults: 03/26/17 09:41 Consult to Cardiology [CONS] Routine Comment: Consulting Provider: [facility] Reason for Consult: exacerbation CHF/syncope. f/u carotid duplex Call Completed: Yes Hospital course: Ms. Rodriguez is a 81 year old female - Time Spent with Patient Total time spent providing and/or coordinating discharge services: 37min - Constitutional Vitals: Temp Pulse Resp BP Pulse Ox 97.5 F L 83 18 144/81 96 03/29/17 07:40 03/29/17 07:40 03/29/17 11:32 03/29/17 07:40 03/29/17 11:32 - Attending Attestation I examined this patient and my medical decision-making was reviewed with the Resident Physician on 03/29/17. I agree with the documented findings, disposition and treatment plan as described except to the extent set forth below. Ms Rodriguez has been admitted for acute resp failure and CHF. She is now at baseline oxygen. She is afebrile with stable vitals. She feels ready for discharge home. Exam Alert. Comfortable Mucus membranes dry Heart distant Scattered rhonchi Abd soft Plan D/C home today.
--- NOTE | 2017-03-29 10:51 | Physician Discharge Referral ---
ExtendedCare Referral Info Transfer To: SNF Provider in Charge after Transfer: PCP Institutional Level of Care: Skilled - Diagnosis (1) Syncope Status: Acute (2) Acute exacerbation of congestive heart failure Status: Acute (3) Acute exacerbation of chronic obstructive airways disease Status: Acute (4) DM2 (diabetes mellitus, type 2) Status: Chronic (5) HLD (hyperlipidemia) Status: Chronic (6) GERD (gastroesophageal reflux disease) Status: Chronic (7) Anxiety and depression Status: Chronic (8) Gout Status: Chronic (9) DVT prophylaxis Status: Acute (10) HTN (hypertension) Status: Chronic - Transfer Medications Home Medications: Allopurinol [Zyloprim] 300 mg PO QAM 10/11/14 [History] Atorvastatin Calcium [Lipitor] 20 mg PO QAM 10/11/14 [History] Quinapril HCl [Accupril] 40 mg PO QAM 10/11/14 [History] Diclofenac Sodium 1 appl TP QID PRN 01/28/17 [History] Escitalopram [Lexapro] 10 mg PO DAILY 01/28/17 [History] Aspirin Enteric Coated [Aspirin EC] 81 mg PO DAILY #30 tablet. 02/04/17 [Rx] Carvedilol [Coreg] 6.25 mg PO BIDWM #60 tablet 02/04/17 [Rx] Omeprazole [PriLOSEC] 40 mg PO DAILY #30 cap 02/04/17 [Rx] hydroCHLOROthiazide [Hydrochlorothiazide] 25 mg PO DAILY #30 tablet 02/04/17 [Rx ] Amlodipine Besylate 10 mg PO DAILY 03/25/17 [History] Furosemide [Lasix] 40 mg PO BID 03/25/17 [History] Lidocaine Patch [Lidoderm 5% patch] 2 each TP DAILY 03/25/17 [History] Oxycodone HCl/Acetaminophen [Percocet 5-325 mg Tablet] 1 tab PO Q6H PRN [History] Sucralfate [Carafate] 1 gm PO QID 03/25/17 [History] Warfarin Sodium [Coumadin] 6 mg PO SUMOTUTHSA 03/25/17 [History] Warfarin [Coumadin] 8 mg PO WEFR 03/25/17 [History] metFORMIN [Glucophage] 500 mg PO BIDWM 03/25/17 [History] Allergies/Adverse Reactions: 3 Allergy/AdvReac Type Severity Reaction Status Date / Time No Known Allergies Allergy Verified 01/28/17 13:58 - Respiratory Orders Smoking Cessation: Smoking cessation has been advised. For more information, call the [place] Tobacco Quit Line at 5-593-ZHGXNOW. CERTIFICATION: I certify that the transfer of the above named patient to an Extended Care Facility is necessary for the continuing treatment of the diagnosis listed. The above information is true and accurate reflection of patient's current condition. Confidential - Redisclosure prohibited without a patient's written consent.
--- NOTE | 2017-03-29 12:34 | Physician Discharge Referral ---
Home Health/Hosp Referral Info Transfer to: Home Health Provider in Charge Post Discharge: PCP - Diagnosis (1) Acute and chronic respiratory failure with hypoxia Priority: Primary Status: Resolved (2) Acute exacerbation of congestive heart failure Priority: Primary Status: Acute (3) Acute exacerbation of chronic obstructive airways disease Priority: Primary Status: Acute (4) Gastritis Priority: Secondary Status: Chronic (5) Abdominal pain Priority: Secondary Status: Acute (6) Syncope Priority: Secondary Status: Acute (7) Paroxysmal atrial fibrillation Priority: Secondary Status: Chronic (8) Anemia Priority: Secondary Status: Chronic (9) DM2 (diabetes mellitus, type 2) Priority: Secondary Status: Chronic (10) Anxiety and depression Priority: Secondary Status: Chronic (11) GERD (gastroesophageal reflux disease) Priority: Secondary Status: Chronic (12) HTN (hypertension) Priority: Secondary Status: Chronic (13) HLD (hyperlipidemia) Priority: Secondary Status: Chronic (14) Gout Priority: Secondary Status: Chronic - Respiratory Orders Oxygen / L per min (2 liters) Smoking Cessation: Smoking cessation has been advised. For more information, call the [place] Tobacco Quit Line at 1-148-ZKWL-NOW. - Diet/Nutrition Diet/Nutrition Orders: Cardiac, No Concentrated Sweets - Activity Activity Orders: Up ad teena - Services Needed Following services are medically necessary services: Nursing, Physical Therapy, Occupational Therapy Other Treatments: CBC, CMP, PT/INR on Friday 03/31 - Transfer Medications Home Medications: Allopurinol [Zyloprim] 300 mg PO QAM 10/11/14 [History] Atorvastatin Calcium [Lipitor] 20 mg PO QAM 10/11/14 [History] Quinapril HCl [Accupril] 40 mg PO QAM 10/11/14 [History] Diclofenac Sodium 1 appl TP QID PRN 01/28/17 [History] Escitalopram [Lexapro] 10 mg PO DAILY 01/28/17 [History] Aspirin Enteric Coated [Aspirin EC] 81 mg PO DAILY #30 tablet. 02/04/17 [Rx] Carvedilol [Coreg] 6.25 mg PO BIDWM #60 tablet 02/04/17 [Rx] Omeprazole [PriLOSEC] 40 mg PO DAILY #30 cap 02/04/17 [Rx] hydroCHLOROthiazide [Hydrochlorothiazide] 25 mg PO DAILY #30 tablet 02/04/17 [Rx ] Amlodipine Besylate 10 mg PO DAILY 01/18/18 [History] Furosemide [Lasix] 40 mg PO BID 03/25/17 [History] Lidocaine Patch [Lidoderm 5% patch] 2 each TP DAILY 03/25/17 [History] Oxycodone HCl/Acetaminophen [Percocet 5-325 mg Tablet] 1 tab PO Q6H PRN [History] Sucralfate [Carafate] 1 gm PO QID 03/25/17 [History] Warfarin Sodium [Coumadin] 6 mg PO SUMOTUTHSA 03/25/17 [History] Warfarin [Coumadin] 8 mg PO WEFR 03/25/17 [History] metFORMIN [Glucophage] 500 mg PO BIDWM 03/25/17 [History] Allergies/Adverse Reactions: 3 Allergy/AdvReac Type Severity Reaction Status Date / Time No Known Allergies Allergy Verified 01/28/17 13:58 Certification: Further, I certify that my clinical findings support that this patient is homebound (i.e. absences from home require considerable and taxing effort and are for medical reasons or adventist services or infrequently or short duration when for other reasons) because: Homebound Reason: Patient requires assistance of a person or device to safely leave home, Leaving home requires considerable and taxing effort due to condition, Severity of cardiac or pulmonary status limits activity tolerance Attestation: My signature below is to certify that this patient is under my care and that I, or nurse practitioner, or a physician's assistant professor of spanish working with me, has a face-to -face encounter with this patient.
[2017-03-29] MEDS: Acetaminophen 325 MG TABLET PO PRN (15:09)
[2017-03-29] MEDS ORDERED: *HR* Warfarin 3 MG TABLET PO ONE (18:00)
[2017-03-30 04:12] VITALS: BP 164/76
== END 2017-03-29 18:00 | disposition home health service (06) | DRG 291 ==
LOC: EMEROO 14:34 → 2NENU 14:34
PROVIDERS: ADMIT Hospitalist; ATTEND Internal Medicine

== ENCOUNTER 2017-08-06 13:18 | Inpatient (IN) ==
--- NOTE | 2017-08-06 13:26 | Emergency Department Note ---
Disposition Clinical Impression: Weakness, KELSEA (acute kidney injury), Elevated lactic acid level, Symptomatic anemia, Hypoxia Anemia Qualifiers: Anemia type: unspecified type Qualified Code(s): D64.9 - Anemia, unspecified UTI (urinary tract infection) Qualifiers: Urinary tract infection type: site unspecified Hematuria presence: without hematuria Qualified Code(s): N39.0 - Urinary tract infection, site not specified Disposition: Admitted As Inpatient Condition: Fair Referrals: Lawson Patel MD [Primary Care Provider] - Forms: ED Satisfaction Letter Time of Disposition: 18:54 Recheck wound or abnormal lab - General Chief Complaint: ED Recheck/Abnormal Lab/Rx Stated Complaint: Needs Blood Transfusion Time Seen by Provider: 08/06/17 13:26 Source: patient Mode of arrival: ambulatory Limitations: no limitations Nursing Notes Reviewed: Yes Vital Signs Reviewed: Yes - History of Present Illness HPI Narrative: Patient is an 82-year-old female with past medical history of A. fib, currently on Coumadin, CHF, COPD. She presents today due to shortness of breath, concern for anemia. Her daughter states that she had basic blood work performed at an outside facility and was told last night that she had severe anemia and to come to the ER for further care. The patient herself admits to shortness of breath over the past 1-2 weeks, worsened with exertion. She is also had some mild epigastric discomfort. She has noted occasional red blood in her stool. She denies seeing this daily. No other dysuria, hematuria, vaginal bleeding. She states that she had her INR checked recently and it was 3.5, has been holding her Coumadin. - Related Data Home Medications Medication Instructions Recorded Confirmed Allopurinol [Zyloprim] 300 mg PO QAM 10/11/14 08/06/17 Atorvastatin Calcium [Lipitor] 20 mg PO QAM 10/11/14 08/06/17 Quinapril HCl [Accupril] 40 mg PO QAM 10/11/14 08/06/17 Escitalopram [Lexapro] 10 mg PO DAILY 01/28/17 08/06/17 Amlodipine Besylate 10 mg PO DAILY 03/25/17 08/06/17 Lidocaine Patch [Lidoderm 5% patch] 2 each TP DAILY 03/25/17 08/06/17 Oxycodone HCl/Acetaminophen 1 tab PO Q6H PRN 03/25/17 08/06/17 [Percocet 5-325 mg Tablet] Warfarin Sodium [Coumadin] 6 mg PO SUTUTHFRSA 03/25/17 08/06/17 Warfarin [Coumadin] 8 mg PO MOWE 03/25/17 08/06/17 metFORMIN [Glucophage] 500 mg PO BIDWM 03/25/17 08/06/17 Furosemide [Lasix] 80 mg PO BID 07/02/17 08/06/17 Potassium Chloride [Klor-Con] 25 meq PO DAILY 07/02/17 08/06/17 Sucralfate [Carafate] 1 gm PO QIDAC 07/02/17 08/06/17 Diclofenac Sodium [Voltaren] 1 appl TP DAILY PRN 08/06/17 08/06/17 Omeprazole [PriLOSEC] 40 mg PO DAILY 08/06/17 08/06/17 Previous Rx's Medication Instructions Recorded Aspirin Enteric Coated [Aspirin EC] 81 mg PO DAILY #30 tablet. 02/04/17 Carvedilol [Coreg] 6.25 mg PO BIDWM #60 tablet 02/04/17 hydroCHLOROthiazide 25 mg PO DAILY #30 tablet 02/04/17 [Hydrochlorothiazide] Allergies Allergy/AdvReac Type Severity Reaction Status Date / Time No Known Allergies Allergy Verified 01/28/17 13:58 All systems ED: reviewed and negative except as stated. Constitutional: Denies: fever Cardiovascular: Denies: chest pain Respiratory: Reports: dyspnea. Denies: cough Gastrointestinal: Denies: abdominal pain, nausea, vomiting, diarrhea Genitourinary: Denies: urgency, dysuria Musculoskeletal: Denies: back pain, neck pain Integumentary: Denies: rash Endocrine: Reports: fatigue Past Medical History - Past Medical History Attestation: Yes The following information was validated with the patient. Source: patient Medical history: Reports: atrial fibrillation, CHF, COPD, diabetes, hyperlipidemia, hypertension Surgical history: Reports: cataract, cholecystectomy, hysterectomy Psychiatric history: Reports: depression - Social History Smoking Status: Former smoker Smokeless Tobacco Status: No Alcohol use: Reports: none Drug use: Reports: none Physical Exam - General Limitations: no limitations General appearance: alert, in no apparent distress - Head Head exam: atraumatic, normocephalic, normal inspection - Eye Eye exam: Present: normal appearance, PERRL, EOMI - ENT ENT exam: normal exam, normal oropharynx, mucous membranes moist - Neck Neck exam: Present: normal inspection, full ROM, trachea midline - Chest Chest inspection: Present: normal inspection, symmetric chest wall rise - Respiratory Respiratory exam: Present: respiratory distress (mild to moderate), accessory muscle use. Absent: wheezes, stridor - Cardiovascular Cardiovascular exam: Present: regular rate, normal rhythm, normal heart sounds - Abdominal Exam Abdominal exam: Present: soft, Non-Tender. Absent: tenderness, distention, guarding, rebound, rigidity - Extremities Exam Extremities exam: Present: normal inspection, full ROM. Absent: tenderness, pedal edema - Neurological Exam Neurological exam: Present: alert, oriented X3 - Psychiatric Psychiatric exam: Present: normal affect, normal mood - Skin Skin exam: Present: warm, dry, intact, normal color Course Course Narrative: Patient was tachypneic on presentation, mild respiratory distress, mild accessory muscle use. Lungs were clear to auscultation. This likely symptomatic anemia causing her respiratory symptoms. Physical exam shows pale scan, pale conjunctiva. Abdomen shows mild epigastric tenderness but negative Castorena, negative McBurney's. Basic blood work ordered along with type and screen. Hemoglobin 7.5. She has symptomatically anemia, will transfuse 2 units. Chest x-ray shows pulmonary vascular congestion but no signs of pneumonia. EKG showed no acute ST changes. Troponin negative. CT abdomen and pelvis has also been ordered to assess for epigastric pain. She does have an elevated lactic acid and history of occasional blood in the stool, will assess for ischemic bowel. 15:59 CT scan shows: IMPRESSION: 1. Diverticulosis. 2. Stable chronic lolis hepatis induration. Hemoccult negative. Currently waiting on urinalysis. Will then admit. 18:35 UA shows UTI. We will give Rocephin. Patient admitted to Dr. Katz for further care. Chest X-Ray 08/06/17 13:41 IMPRESSION: Cardiomegaly with pulmonary vascular congestion. Bibasilar atelectasis. D/ / Caprice Marquez MD / Caprice Marquez MD Interpreting Provider: Caprice Marquez MD Abdomen/Pelvis CT 08/06/17 14:27 IMPRESSION: 1. Diverticulosis. 2. Stable chronic lolis hepatis induration. D/ / Ethan Flores MD / Ethan Flores MD Interpreting Provider: Ethan Flores MD Chest X-Ray 08/06/17 13:41 IMPRESSION: Cardiomegaly with pulmonary vascular congestion. Bibasilar atelectasis. D/ / Caprice Marquez MD / Caprice Marquez MD Interpreting Provider: Caprice Marquez MD Vital Signs Temperature 97.9 F 08/06/17 13:20 Pulse Rate 68 08/06/17 13:20 Respiratory Rate 22 08/06/17 13:20 Blood Pressure 115/71 08/06/17 13:20 O2 Sat by Pulse Oximetry 80 08/06/17 13:20 Temperature 98.1 F 08/06/17 16:49 Pulse Rate 75 08/06/17 17:24 Respiratory Rate 18 08/06/17 17:24 Blood Pressure 157/77 08/06/17 17:24 O2 Sat by Pulse Oximetry 93 08/06/17 17:24 Oxygen Delivery Oxygen Delivery Nasal Cannula Recheck wound or abnormal lab - MDM Narrative Medical decision making narrative: Patient was tachypneic on presentation, mild respiratory distress, mild accessory muscle use. Lungs were clear to auscultation. This likely symptomatic anemia causing her respiratory symptoms. Physical exam shows pale scan, pale conjunctiva. Abdomen shows mild epigastric tenderness but negative Castorena, negative McBurney's. Basic blood work ordered along with type and screen. Hemoglobin 7.5. She has symptomatically anemia, will transfuse 2 units. Chest x-ray shows pulmonary vascular congestion but no signs of pneumonia. EKG showed no acute ST changes. Troponin negative. CT abdomen and pelvis has also been ordered to assess for epigastric pain. She does have an elevated lactic acid and history of occasional blood in the stool, will assess for ischemic bowel. 15:59 CT scan shows: IMPRESSION: 1. Diverticulosis. 2. Stable chronic lolis hepatis induration. Hemoccult negative. Currently waiting on urinalysis. Will then admit. 18:35 UA shows UTI. We will give Rocephin. Patient admitted to Dr. Katz for further care. - Medical Records Medical records reviewed: Yes I reviewed the patient's medical records. - Lab Data Lab results reviewed: Yes I reviewed the patient's lab results. Result diagrams: 08/06/17 13:41 08/06/17 13:41 Lab Results 08/06/17 08/06/17 08/06/17 Range/Units 13:41 13:41 13:41 WBC 6.3 (4.3-11.1) K/mcL RBC 2.87 L (3.82-4.97) M/mcL Hgb 7.5 L (11.5-15.4) g/dL Hct 25.2 L (35.3-44.9) % MCV 87.8 (83.0-100.0) fL MCH 26.1 L (28.0-33.3) pg MCHC 29.8 L (31.6-35.5) g/dL RDW 15.8 H (11.5-14.5) % Plt Count 256 (140-400) K/mcL MPV 10.7 (9.4-12.4) fL Immature Gran % 0.3 (0-4) % Seg Neutrophils % 61.5 % Lymphocytes % 21.8 % Monocytes % 12.6 % Eosinophils % 3.0 % Basophils % 0.8 % Neutrophils # 3.9 (1.6-8.9) K/mcL Lymphocytes # 1.4 (0.6-4.6) K/mcL Monocytes # 0.8 (0.0-1.3) K/mcL Eosinophils # 0.2 (0.0-0.6) K/mcL Basophils # 0.1 (0.0-0.2) K/mcL Nucleated RBCs/100 WBC 0.3 H (0) /100 WBC Sodium 134 L (136-145) mEq/L Potassium 4.0 (3.5-5.1) mEq/L Chloride 89 L (98-107) mEq/L Carbon Dioxide 34 H (23-29) mEq/L BUN 51 H (8-23) mg/dL Creatinine 1.27 H (0.60-1.20) mg/dL Est GFR ( Amer) 49 L (> 60) Est GFR (Non-Af Amer) 40 L (> 60) BUN/Creatinine Ratio 40 H (6-26) Glucose 146 H (70-105) mg/dL Calculated Osmolality 294 (280-300) Lactic Acid (0.5-2.2) mmol/L Calcium 9.5 (8.6-10.3) mg/dL Troponin I < 0.03 (< 0.04) ng/mL B-Natriuretic Peptide 432 H (Less than 100) pg/mL Urine Color (Yellow) Urine Clarity (Clear) Urine pH (5.0-8.0) pH Units Ur Specific [place] (1.010-1.025) Urine Protein (Neg-Trace) mg/dL Urine Glucose (UA) (Normal) mg/dL Urine Ketones (Negative) mg/dL Urine Blood (Negative) Urine Nitrite (Negative) Urine Bilirubin (Negative) Urine Urobilinogen (Normal) mg/dL Ur Leukocyte Esterase (Negative) Urine Microscopic RBC (0-3) per hpf Urine Microscopic WBC (0-3) per hpf Ur Squamous Epith Cells (None-Few) per lpf Urine Bacteria (None-Few) per hpf Hyaline Casts (None-Few) per lpf Ur Culture Indicated? (NO) Blood Type Antibody Screen Crossmatch 08/06/17 08/06/17 08/06/17 Range/Units 13:47 14:07 16:02 WBC (4.3-11.1) K/mcL RBC (3.82-4.97) M/mcL Hgb (11.5-15.4) g/dL Hct (35.3-44.9) % MCV (83.0-100.0) fL MCH (28.0-33.3) pg MCHC (31.6-35.5) g/dL RDW (11.5-14.5) % Plt Count (140-400) K/mcL MPV (9.4-12.4) fL Immature Gran % (0-4) % Seg Neutrophils % % Lymphocytes % % Monocytes % % Eosinophils % % Basophils % % Neutrophils # (1.6-8.9) K/mcL Lymphocytes # (0.6-4.6) K/mcL Monocytes # (0.0-1.3) K/mcL Eosinophils # (0.0-0.6) K/mcL Basophils # (0.0-0.2) K/mcL Nucleated RBCs/100 WBC (0) /100 WBC Sodium (136-145) mEq/L Potassium (3.5-5.1) mEq/L Chloride (98-107) mEq/L Carbon Dioxide (23-29) mEq/L BUN (8-23) mg/dL Creatinine (0.60-1.20) mg/dL Est GFR ( Amer) (> 60) Est GFR (Non-Af Amer) (> 60) BUN/Creatinine Ratio (6-26) Glucose (70-105) mg/dL Calculated Osmolality (280-300) Lactic Acid 3.9 H (0.5-2.2) mmol/L Calcium (8.6-10.3) mg/dL Troponin I (< 0.04) ng/mL B-Natriuretic Peptide (Less than 100) pg/mL Urine Color Yellow (Yellow) Urine Clarity Clear (Clear) Urine pH 7.0 (5.0-8.0) pH Units Ur Specific [place] 1.014 (1.010-1.025) Urine Protein Negative (Neg-Trace) mg/dL Urine Glucose (UA) Normal (Normal) mg/dL Urine Ketones Negative (Negative) mg/dL Urine Blood Negative (Negative) Urine Nitrite Negative (Negative) Urine Bilirubin Negative (Negative) Urine Urobilinogen Normal (Normal) mg/dL Ur Leukocyte Esterase Moderate H (Negative) Urine Microscopic RBC 0-3 (0-3) per hpf Urine Microscopic WBC 30-50 H (0-3) per hpf Ur Squamous Epith Cells Few (None-Few) per lpf Urine Bacteria Few (None-Few) per hpf Hyaline Casts None Seen (None-Few) per lpf Ur Culture Indicated? YES A (NO) Blood Type O POSITIVE Antibody Screen NEGATIVE Crossmatch See Detail 08/06/17 Range/Units 16:11 WBC (4.3-11.1) K/mcL RBC (3.82-4.97) M/mcL Hgb (11.5-15.4) g/dL Hct (35.3-44.9) % MCV (83.0-100.0) fL MCH (28.0-33.3) pg MCHC (31.6-35.5) g/dL RDW (11.5-14.5) % Plt Count (140-400) K/mcL MPV (9.4-12.4) fL Immature Gran % (0-4) % Seg Neutrophils % % Lymphocytes % % Monocytes % % Eosinophils % % Basophils % % Neutrophils # (1.6-8.9) K/mcL Lymphocytes # (0.6-4.6) K/mcL Monocytes # (0.0-1.3) K/mcL Eosinophils # (0.0-0.6) K/mcL Basophils # (0.0-0.2) K/mcL Nucleated RBCs/100 WBC (0) /100 WBC Sodium (136-145) mEq/L Potassium (3.5-5.1) mEq/L Chloride (98-107) mEq/L Carbon Dioxide (23-29) mEq/L BUN (8-23) mg/dL Creatinine (0.60-1.20) mg/dL Est GFR ( Amer) (> 60) Est GFR (Non-Af Amer) (> 60) BUN/Creatinine Ratio (6-26) Glucose (70-105) mg/dL Calculated Osmolality (280-300) Lactic Acid 2.0 (0.5-2.2) mmol/L Calcium (8.6-10.3) mg/dL Troponin I (< 0.04) ng/mL B-Natriuretic Peptide (Less than 100) pg/mL Urine Color (Yellow) Urine Clarity (Clear) Urine pH (5.0-8.0) pH Units Ur Specific [place] (1.010-1.025) Urine Protein (Neg-Trace) mg/dL Urine Glucose (UA) (Normal) mg/dL Urine Ketones (Negative) mg/dL Urine Blood (Negative) Urine Nitrite (Negative) Urine Bilirubin (Negative) Urine Urobilinogen (Normal) mg/dL Ur Leukocyte Esterase (Negative) Urine Microscopic RBC (0-3) per hpf Urine Microscopic WBC (0-3) per hpf Ur Squamous Epith Cells (None-Few) per lpf Urine Bacteria (None-Few) per hpf Hyaline Casts (None-Few) per lpf Ur Culture Indicated? (NO) Blood Type Antibody Screen Crossmatch - Radiology Data Radiology results reviewed: Yes I reviewed the patient's radiology results. Chest X-Ray 08/06/17 13:41 IMPRESSION: Cardiomegaly with pulmonary vascular congestion. Bibasilar atelectasis. D/ / Caprice Marquez MD / Caprice Marquez MD Interpreting Provider: Caprice Marquez MD - EKG Data EKG attestation: Yes I reviewed and interpreted this EKG. EKG results narrative: Torres for 2018 at 13:45. A. fib. Rate 72. QRS 138. QTC 447. Normal axis. Right bundle branch block present, previously on old EKG on 07/02/2017. S.B.A.R. - S.B.A.R. Situation: Demographics, MOA Background: Presenting Complaint, Relevant PMH, Meds, & Allergies Assessment: Vital Signs, Course and respsone to treatment, Exam Concerns, Patient/Family Expectation, Pertinant Lab Results Recommendation: Barrier(s) to disposition, Recommendation based on pending studies, treatments, or consults S.B.A.R. Report Given to: Dr. Katz
--- NOTE | 2017-08-06 13:53 | Emergency Department Note ---
Disposition Clinical Impression: Weakness Disposition: Still a Patient Forms: ED Satisfaction Letter General Adult HPI - General Chief complaint: ED Recheck/Abnormal Lab/Rx Stated complaint: Needs Blood Transfusion Time Seen by Provider: 08/06/17 13:26 Source: patient Mode of arrival: ambulatory Limitations: no limitations - History of Present Illness Pain Scale: 0 - Related Data Home Medications Medication Instructions Recorded Confirmed Allopurinol [Zyloprim] 300 mg PO QAM 10/11/14 07/02/17 Atorvastatin Calcium [Lipitor] 20 mg PO QAM 10/11/14 07/02/17 Quinapril HCl [Accupril] 40 mg PO QAM 10/11/14 07/02/17 Escitalopram [Lexapro] 10 mg PO DAILY 01/28/17 07/02/17 Amlodipine Besylate 10 mg PO DAILY 03/25/17 07/02/17 Lidocaine Patch [Lidoderm 5% patch] 2 each TP DAILY 03/25/17 07/02/17 Oxycodone HCl/Acetaminophen 1 tab PO Q6H PRN 03/25/17 07/02/17 [Percocet 5-325 mg Tablet] Warfarin Sodium [Coumadin] 6 mg PO SUTUTHSA 03/25/17 07/02/17 Warfarin [Coumadin] 8 mg PO MOWEFR 03/25/17 07/02/17 metFORMIN [Glucophage] 500 mg PO BIDWM 03/25/17 07/02/17 Furosemide [Lasix] 80 mg PO BID 07/02/17 07/02/17 Potassium Chloride [Klor-Con] 25 meq PO DAILY 07/02/17 07/02/17 Sucralfate [Carafate] 1 gm PO QIDAC 07/02/17 07/02/17 Previous Rx's Medication Instructions Recorded Aspirin Enteric Coated [Aspirin EC] 81 mg PO DAILY #30 tablet. 02/04/17 Carvedilol [Coreg] 6.25 mg PO BIDWM #60 tablet 02/04/17 hydroCHLOROthiazide 25 mg PO DAILY #30 tablet 02/04/17 [Hydrochlorothiazide] Allergies Allergy/AdvReac Type Severity Reaction Status Date / Time No Known Allergies Allergy Verified 01/28/17 13:58 Past Medical History - Past Medical History Medical history: Reports: atrial fibrillation, CHF, COPD, diabetes, hyperlipidemia, hypertension Surgical history: Reports: cataract, cholecystectomy, hysterectomy Psychiatric history: Reports: depression - Social History Smoking Status: Former smoker Smokeless Tobacco Status: No Alcohol use: Reports: none Drug use: Reports: none Physical Exam - General Limitations: no limitations General appearance: alert, in no apparent distress Course Vital Signs Temperature 97.9 F 08/06/17 13:20 Pulse Rate 68 08/06/17 13:20 Respiratory Rate 22 08/06/17 13:20 Blood Pressure 115/71 08/06/17 13:20 O2 Sat by Pulse Oximetry 80 08/06/17 13:20 Temperature 97.9 F 08/06/17 13:33 Pulse Rate 78 08/06/17 13:36 Respiratory Rate 18 08/06/17 13:36 Blood Pressure 121/62 08/06/17 13:36 O2 Sat by Pulse Oximetry 94 08/06/17 13:36 Oxygen Delivery Oxygen Delivery Nasal Cannula Attestation Statement - Attestation Attestation: I examined this patient and my medical decision-making was reviewed with the Resident Physician. I agree with the documented findings, disposition and treatment plan as described except to the extent set forth below. 82 year old female presents to the ED with complaints of weakness and was calld and asked to come to the ED for a low hgb and evalaution fo transfusion. Patinet was 80% on arrival and afer oxygen adminisration is now above 90%. She had a traumatic falls recently that was evalauted and treated. WE wll do weaknss near syncope workup and assess for need for transfusion. No focal defecits
[2017-08-06 14:17] LABS: Basophils # 0.1 K/mcL (0.0-0.2); Basophils % 0.8 %; Eosinophils # 0.2 K/mcL (0.0-0.6); Hematocrit 25.2 % (35.3-44.9); Hemoglobin 7.5 g/dL (11.5-15.4); Immature Granulocytes % 0.3 % (0-4); Lymphocytes # 1.4 K/mcL (0.6-4.6); Lymphocytes % 21.8 %; Mean Corpuscular HGB Conc 29.8 g/dL (31.6-35.5); Mean Corpuscular Hemoglobin 26.1 pg (28.0-33.3); Mean Corpuscular Volume 87.8 fL (83.0-100.0); Mean Platelet Volume 10.7 fL (9.4-12.4); Monocytes # 0.8 K/mcL (0.0-1.3); Monocytes % 12.6 %; Neutrophils # 3.9 K/mcL (1.6-8.9); Nucleated Red Blood Cells 0.3 /100 WBC (0); Platelet Count 256 K/mcL (140-400); Red Blood Count 2.87 M/mcL (3.82-4.97); Red Cell Distribution Width 15.8 % (11.5-14.5); Segmented Neutrophils % 61.5 %
[2017-08-06] MEDS ORDERED: Isovue-370 500 ML INFUS..BTL IV ONE (14:27)
[2017-08-06 14:41] LABS: BUN/Creatinine Ratio 40 (6-26); Blood Urea Nitrogen 51 mg/dL (8-23); Calcium 9.5 mg/dL (8.6-10.3); Carbon Dioxide 34 mEq/L (23-29); Chloride 89 mEq/L (98-107); Glucose 146 mg/dL (70-105); Osmolality,Calculated 294 (280-300); Sodium 134 mEq/L (136-145); Troponin I < 0.03 ng/mL (< 0.04); eGFR For African Americans 49 (> 60); eGFR For Non-African Americans 40 (> 60)
[2017-08-06] MEDS ORDERED: 0.9 % Sodium Chloride 250 ML ONE (16:22)
[2017-08-06 16:38] LABS: Bilirubin,Urine Negative (Negative); Blood,Urine Negative (Negative); Clarity,Urine Clear (Clear); Color,Urine Yellow (Yellow); Glucose,Urine (UA) Normal (Normal); Ketones,Urine Negative (Negative); Leukocyte Esterase,Urine Moderate (Negative); Nitrite,Urine Negative (Negative); Protein,Urine Negative (Neg-Trace); Specific Gravity,Urine 1.014 (1.010-1.025); Urobilinogen,Urine Normal (Normal)
[2017-08-06 16:42] LABS: Bacteria,Urine Few per hpf (None-Few); Hyaline Casts,Urine None Seen per lpf (None-Few); RBC,Urine 0-3 per hpf (0-3); Squamous Epithelial Cell,Urine Few per lpf (None-Few); WBC,Urine 30-50 per hpf (0-3)
[2017-08-06] MEDS ORDERED: cefTRIAXone 2,000 MG in 0.9 % Sodium Chloride Mini Bag 100 ML IVPB ONE (17:07)
--- NOTE | 2017-08-06 18:22 | Electrocardiograph Report ---
[place] [facility] Test Date: 2017-08-06 Pat Name: Denise Rodriguez Department: 103 Room: Gender: F Watcher [place]: VINOD : 1935 Requested By: Juan Bourne Order Number: [id number] Reading MD: Gui Cohn Measurements Intervals [place] Rate: 72 P: DE: 0 QRS: 41 QRSD: 138 T: -8 QT: 423 QTc: 447 Interpretive Statements ATRIAL FIBRILLATION RIGHT BUNDLE BRANCH BLOCK [120+ ms QRS DURATION, UPRIGHT V1, 40+ ms S IN I/aVL/V4/V5/V6] Electronically Signed On 08-06-2017 18:20:49 EDT by Gui Cohn
[2017-08-06] MEDS ORDERED: 0.9 % Sodium Chloride 1,000 ML ONE (19:43)
[2017-08-06] MEDS ORDERED: *HR* OxyCODONE/APAP 5/325 TABLET PO ONE (20:08)
[2017-08-06 20:31] LABS: INR 3.5; Prothrombin Time 38.5 Seconds (9.4-12.1)
--- NOTE | 2017-08-06 20:49 | Internal Med History&Physical ---
Date of Encounter: 08/06/17 Time of Encounter: 20:46 Internal Medicine - H&P: HPI Chief complaint: Weakness and shortness of breath Admitted From: Emergency Dept History of present illness: Ms. Rodriguez is a 82 year old female with a past medical history of paroxysmal atrial fibrillation on Coumadin, diastolic CHF with severe tricuspid regurgitation, syncopal episodes, diabetes type 2 not insulin-dependent, COPD oxygen dependent using 2 L, came to emergency room complaining of severe weakness and shortness of breath. The patient was seen in June after a fall where she had severe bleeding due to a laceration on her scalp she was transferred to [facility], family says that she lost a lot of blood back then but he did not require any transfusions. Today, she was called by her primary care physician saying that her labs were abnormal and she had severe anemia. Hemoglobin is 7.5 and last measurement we have from before is 10.2. Rectal examination was done at the emergency room and Hemoccult was negative. The patient's creatinine has increased to 1.27 from a prior value of 0.56. INR was not checked in the ER but the daughter says that yesterday it was 3.2 for which her Coumadin was held. Patient is a very poor historian and gets really confused, cannot tell whether she has dysuria are not, her UA was positive for 50 white blood cells. BNP is 432, chest x-ray shows vascular pulmonary congestion. The patient received Rocephin at the emergency room and 2 units of red blood cells were ordered. Blood pressure is 157/77. CT scan of the abdomen showed: Diverticulosis and stable chronic lolis hepatis induration. Past Med Surg Social Fam HX - Past Medical History Medical history: atrial fibrillation (On Coumadin and aspirin), CHF (Diastolic CHF with severe tricuspid regurgitation), COPD (Oxygen dependent using 2 L/ chronic respiratory failure), diabetes (Not insulin-dependent), hyperlipidemia, hypertension, other (Perineal wound culture positive for MRSA in May 2015, gout, depression, GERD, syncopal episodes, carotid stenosis, hypertrophic cardiomyopathy) Psychiatric history: depression - Past Surgical History Surgical History: cataract, cholecystectomy, hysterectomy Additional surgical history: KNEE rt, surgery cataract surgery - Social History Smoking Status: Former smoker Smokeless Tobacco Status: No Alcohol use: none Drug use: none - Family History Brother Adopted: No Family Member Ethnicity: Non- Twin of Family Member: Yes, Fraternal Living Status: Hx Family Cardiac Disorders: Yes Sister Family Member Ethnicity: Non- Twin of Family Member: Yes, Fraternal Living Status: Still Living Hx Family Cardiac Disorders: Yes ([place]) Mother Family Member Ethnicity: Non- Living Status: Hx Family Respiratory Disorders: Yes (Emphysema, TB) Hx Family Cancer: Yes (Basal cell skin cancer) Hx Family Endocrine Disorder: Yes (Cirrhosis) Father Family Member Ethnicity: Non- Living Status: Hx Family Respiratory Disorders: Yes (COPD, emphysema) Hx Family Endocrine Disorder: Yes (Cirrhosis) - Additional Family History Additional family history: Sister with myocardial infarction, mother with emphysema, tuberculosis and basal cell skin cancer, father with COPD and cirrhosis Internal Medicine - H&P: Meds Allopurinol [Zyloprim] 300 mg PO QAM 10/11/14 [History] Atorvastatin Calcium [Lipitor] 20 mg PO QAM 10/11/14 [History] Quinapril HCl [Accupril] 40 mg PO QAM 10/11/14 [History] Escitalopram [Lexapro] 10 mg PO DAILY 01/28/17 [History] Aspirin Enteric Coated [Aspirin EC] 81 mg PO DAILY #30 tablet. 02/04/17 [Rx] Carvedilol [Coreg] 6.25 mg PO BIDWM #60 tablet 02/04/17 [Rx] hydroCHLOROthiazide [Hydrochlorothiazide] 25 mg PO DAILY #30 tablet 02/04/17 [Rx ] Amlodipine Besylate 10 mg PO DAILY 03/25/17 [History] Lidocaine Patch [Lidoderm 5% patch] 2 each TP DAILY 03/25/17 [History] Oxycodone HCl/Acetaminophen [Percocet 5-325 mg Tablet] 1 tab PO Q6H PRN [History] Warfarin Sodium [Coumadin] 6 mg PO SUTUTHFRSA 03/25/17 [History] Warfarin [Coumadin] 8 mg PO MOWE 03/25/17 [History] metFORMIN [Glucophage] 500 mg PO BIDWM 03/25/17 [History] Furosemide [Lasix] 80 mg PO BID 07/02/17 [History] Potassium Chloride [Klor-Con] 25 meq PO DAILY 07/02/17 [History] Sucralfate [Carafate] 1 gm PO QIDAC 07/02/17 [History] Diclofenac Sodium [Voltaren] 1 appl TP DAILY PRN 08/06/17 [History] Omeprazole [PriLOSEC] 40 mg PO DAILY 08/06/17 [History] 3 Allergy/AdvReac Type Severity Reaction Status Date / Time No Known Allergies Allergy Verified 01/28/17 13:58 All Systems PM: A 10-system review of systems was performed and is negative for pertinent findings except as documented above in the HPI. Review of systems: Feels a still very short of breath, other systems out of the 10 reviewed were negative, severe weakness - Constitutional Vitals: Temp Pulse Resp BP Pulse Ox 98.7 F 85 20 124/70 95 08/06/17 20:13 08/06/17 20:13 08/06/17 20:13 08/06/17 19:56 08/06/17 20:13 General appearance: Present: A&O X 3, morbidly obese - Head Head exam: Present: atraumatic, normocephalic - Eye Eye exam: Present: PERRL, conjuntiva pink, sclera anicteric Pupils: Present: PERRL - Neck Neck exam general surgery: Present: supple, trachea midline. Absent: lymphadenopathy - Respiratory Respiratory exam: Present: decreased breath sounds, CTAB, rales (Diffuse crackles). Absent: accessory muscle use, rhonchi, wheezes - Cardiovascular Cardiovascular exam: Present: RRR, +S1, +S2. Absent: diastolic murmur, gallop, rubs, systolic murmur - GI/Abdominal GI/Abdominal exam: Present: distended, normal bowel sounds, soft, no peritoneal signs. Absent: tenderness - Extremities Exam Extremities exam: Present: pedal edema (+2 pitting edema in both lower extremities), warm, radial pulses palpable and symmetrical. Absent: calf tenderness, cyanotic - Neurological Exam Neurological exam: Present: CN II-XII intact, oriented X3, no focal deficits. Absent: pronater drift, facial droop, speech deficit - Skin Skin exam: Present: dry, intact Internal Med - H&P Results - Labs CBC & Chem 7: 08/06/17 13:41 08/06/17 13:41 - Assessment and plan (1) Symptomatic anemia Current Visit: Yes Status: Acute Assessment and plan: Acute blood loss anemia, unclear source Transfused 2 units of blood Give IV Lasix due to congestion Hold Coumadin and aspirin Protonix IV GI or surgery consultation the morning ( please call) Sequential compression devices for DVT prophylaxis. The patient will be admitted as inpatient, expected stay more than 2 midnights. DNR CC arrest DNI, time spent on this admission 40 minutes High risk of falling (2) CHF exacerbation Current Visit: No Status: Acute Assessment and plan: Acute diastolic CHF exacerbation/severe tricuspid regurgitation Strict I's and O's, daily weight Lasix IV Qualifiers: Qualified Code(s): I50.33 - Acute on chronic diastolic (congestive) heart failure (3) Hypoxia Current Visit: Yes Status: Acute (4) KELSEA (acute kidney injury) Current Visit: Yes Status: Acute Assessment and plan: Acute renal failure likely secondary to anemia Blood was transfused No IV fluids due to severe congestion and history of severe tricuspid regurgitation Hold allopurinol, aspirin, hydrochlorothiazide and quinapril (5) Elevated lactic acid level Current Visit: Yes Status: Acute Assessment and plan: Elevated lactic acid the first lactic acid was 3.5, second one was 2 (6) UTI (urinary tract infection) Current Visit: Yes Status: Acute Assessment and plan: Continue Rocephin Culture pending Qualifiers: Urinary tract infection type: site unspecified Hematuria presence: without hematuria Qualified Code(s): N39.0 - Urinary tract infection, site not specified (7) COPD (chronic obstructive pulmonary disease) Current Visit: No Status: Chronic Assessment and plan: No exacerbation Qualifiers: COPD type: unspecified COPD Qualified Code(s): J44.9 - Chronic obstructive pulmonary disease, unspecified (8) DM2 (diabetes mellitus, type 2) Current Visit: No Status: Chronic Assessment and plan: Insulin sliding scale Qualifiers: Diabetes mellitus custodial insulin use: without remote computer terminal operator use Diabetes mellitus complication status: without complication Qualified Code(s): E11.9 - Type 2 diabetes mellitus without complications (9) Paroxysmal atrial fibrillation Current Visit: No Status: Chronic Assessment and plan: Hold Coumadin Check INR stat May administer vitamin K - Time Spent With Patient Total time spent is greater than 50% in coordination of care (as documented) at patient's floor/unit and/or counseling patient:
[2017-08-06] MEDS ORDERED: Dextrose Gel 15 GM/37.5 ML TUBE PO PRN ×2 (20:57)
[2017-08-06] MEDS ORDERED: *HR* Dextrose 50 % in Water (Syg) 50 ML SYRINGE IVP PRN (20:57)
[2017-08-06] MEDS ORDERED: D5% in Water 1,000 ML IVC PRN (20:57)
[2017-08-06] MEDS ORDERED: Naloxone 0.4 MG/ML INJ IVP PRN (20:59)
[2017-08-06] MEDS ORDERED: Ondansetron 4 MG/2 ML VIAL IVP PRN (20:59)
[2017-08-06] MEDS ORDERED: *HR* Phytonadione 5 MG TABLET PO ONE (21:02)
[2017-08-06] MEDS: Sucralfate 1 GM TABLET PO SCH (21:31)
[2017-08-06] MEDS: Pantoprazole 40 MG VIAL IVP SCH (21:31)
[2017-08-06] MEDS: Furosemide 40 MG/4 ML VIAL IVP SCH (21:31)
[2017-08-07 00:46] LABS: Hematocrit 27.5 % (35.3-44.9); Hemoglobin 8.7 g/dL (11.5-15.4); Mean Corpuscular HGB Conc 31.6 g/dL (31.6-35.5); Mean Corpuscular Hemoglobin 27.4 pg (28.0-33.3); Mean Corpuscular Volume 86.8 fL (83.0-100.0); Mean Platelet Volume 10.4 fL (9.4-12.4); Platelet Count 221 K/mcL (140-400); Red Blood Count 3.17 M/mcL (3.82-4.97); Red Cell Distribution Width 15.7 % (11.5-14.5)
[2017-08-07 00:52] LABS: INR 3.3; Prothrombin Time 36.1 Seconds (9.4-12.1)
[2017-08-07 01:05] LABS: Calcium 9.5 mg/dL (8.6-10.3)
[2017-08-07] MEDS: Acetaminophen 325 MG TABLET PO PRN (03:50)
[2017-08-07] MEDS: OXYCODONE Oral CONC 10 MG/0.5 ML ORAL.SYG SL PRN ×3 (03:50→17:25)
[2017-08-07] MEDS: Pantoprazole 40 MG VIAL IVP SCH ×2 (05:10→17:26)
[2017-08-07] MEDS: Sucralfate 1 GM TABLET PO SCH ×4 (08:54→21:18)
[2017-08-07] MEDS: Insulin LISPRO 300 UNITS/3 ML VIAL SQ SCH ×3 (08:55→17:14)
[2017-08-07] MEDS: cefTRIAXone 1,000 MG in Water for inj. (sterile) 20 ML 10 ML IVP SCH (08:55)
[2017-08-07] MEDS: Furosemide 40 MG/4 ML VIAL IVP SCH ×3 (08:55→17:26)
--- NOTE | 2017-08-07 10:00 | Internal Med Progress Note ---
Date of Encounter: 08/07/17 Time of Encounter: 09:57 - Assessment and plan (1) Symptomatic anemia Current Visit: Yes Status: Acute Assessment and plan: Acute blood loss anemia, unclear source Transfused 2 units of blood Give IV Lasix due to congestion Hold Coumadin and aspirin Protonix IV GI or surgery consultation the morning ( please call) Sequential compression devices for DVT prophylaxis. The patient will be admitted as inpatient, expected stay more than 2 midnights. DNR CC arrest DNI, time spent on this admission 40 minutes High risk of falling 6/2: Patient's hemoglobin is stable presently. Continue to monitor. H+H bid. I suspect this may be more of a subacute blood loss as opposed to acute. We will continue to monitor. Should she show further signs of dropping her hemoglobin, we will then consider fresh frozen plasma to reverse her quite a lot but the. Coumadin remains on hold. She is not a candidate for endoscopy presently due to her coagulopathy. Continue to closely monitor. Transfuse when necessary. Continue IV Protonix. (2) DM2 (diabetes mellitus, type 2) Current Visit: No Status: Chronic Assessment and plan: Insulin sliding scale 6/2: Reasonable glycemic control. Monitor. Qualifiers: Diabetes mellitus meterman insulin use: without skilled nursing use Diabetes mellitus complication status: without complication Qualified Code(s): E11.9 - Type 2 diabetes mellitus without complications (3) COPD (chronic obstructive pulmonary disease) Current Visit: No Status: Chronic Assessment and plan: No exacerbation 6/2: Do not suspect an acute exacerbation. I will continue with aggressive bronchodilator therapy. Monitor. Reviewing her labs she has elevated serum bicarbonate, I suspect she has some degree of obesity hypoventilation syndrome, and likely sleep apnea as well. Qualifiers: COPD type: unspecified COPD Qualified Code(s): J44.9 - Chronic obstructive pulmonary disease, unspecified (4) Paroxysmal atrial fibrillation Current Visit: No Status: Chronic Assessment and plan: Hold Coumadin Check INR stat May administer vitamin K 6/2: Coumadin is held. Rate is controlled. Continue to monitor. (5) KELSEA (acute kidney injury) Current Visit: Yes Status: Acute Assessment and plan: Acute renal failure likely secondary to anemia Blood was transfused No IV fluids due to severe congestion and history of severe tricuspid regurgitation Hold allopurinol, aspirin, hydrochlorothiazide and quinapril 6/2: Continue to monitor especially while receiving diuresis avoid unnecessary nephrotoxins Note that patient did have a CT abdomen and pelvis with IV contrast on August 06. (6) Elevated lactic acid level Current Visit: Yes Status: Resolved Assessment and plan: Elevated lactic acid the first lactic acid was 3.5, second one was 2 6: Resolved (7) Hypoxia Current Visit: Yes Status: Acute Assessment and plan: patient with acute on chronic hypoxemic respiratory failure, multifactorial -CHF as described above -Underlying COPD -Obesity hypoventilation syndrome, probable sleep apnea. (8) UTI (urinary tract infection) Current Visit: Yes Status: Acute Assessment and plan: Continue Rocephin Culture pending 08/07: Day #2 IV Rocephin. Continue. Await culture results. Qualifiers: Urinary tract infection type: site unspecified Hematuria presence: without hematuria Qualified Code(s): N39.0 - Urinary tract infection, site not specified (9) CHF (congestive heart failure) Current Visit: Yes Status: Acute Assessment and plan: Acute diastolic CHF exacerbation/severe tricuspid regurgitation Strict I's and O's, daily weight Lasix IV 09/06: Acute on chronic diastolic CHF as well as acute on chronic CHF due to pulmonary hypertension. Increase Lasix to 80 mg IV 3 times a day. Uptitrate Coreg 12.5 mg by mouth twice a day. Need improved blood pressure control. We will consider Imdur to reduce preload. Monitor BMP every day. Echo in January 2017 showed an EF of 60-65%, concentric LVH, severe pulmonary hypertension, along with severe tricuspid regurgitation. Qualifiers: Heart failure type: diastolic Heart failure chronicity: acute on chronic Qualified Code(s): I50.33 - Acute on chronic diastolic (congestive) heart failure - Time Spent With Patient Total time spent is greater than 50% in coordination of care (as documented) at patient's floor/unit and/or counseling patient: Greater than 35 minutes - Subjective Interval history: Ms. Rodriguez is a 82 year old female with a past medical history of paroxysmal atrial fibrillation on Coumadin, diastolic CHF with severe tricuspid regurgitation, syncopal episodes, diabetes type 2 not insulin-dependent, COPD oxygen dependent using 2 L, came to emergency room complaining of severe weakness and shortness of breath. The patient was seen in June after a fall where she had severe bleeding due to a laceration on her scalp she was transferred to [facility], family says that she lost a lot of blood back then but he did not require any transfusions. Today, she was called by her primary care physician saying that her labs were abnormal and she had severe anemia. Hemoglobin is 7.5 and last measurement we have from before is 10.2. Rectal examination was done at the emergency room and Hemoccult was negative. The patient's creatinine has increased to 1.27 from a prior value of 0.56. INR was not checked in the ER but the daughter says that yesterday it was 3.2 for which her Coumadin was held. Patient is a very poor historian and gets really confused, cannot tell whether she has dysuria are not, her UA was positive for 50 white blood cells. BNP is 432, chest x-ray shows vascular pulmonary congestion. The patient received Rocephin at the emergency room and 2 units of red blood cells were ordered. Blood pressure is 157/77. CT scan of the abdomen showed: Diverticulosis and stable chronic lolis hepatis induration. 08/07: Patient denies any bleeding presently. She was not aware she was losing any blood prior to arrival to the hospital. Presently she feels weak but has no chest pain or shortness of breath. She is not a good historian however. Patient denies any pain. She does have swelling in her legs which she states is chronic. She is on oxygen 2 L per nasal cannula chronically. Hemoglobin is 8.7 this morning, prior to transfusion yesterday it was 7.5. Normocytic. She does not recall receiving blood. Coumadin is held. Patient's INR is 3.3 this morning. Chest x-ray on admission shows findings concerning for CHF. CT abdomen and pelvis with IV contrast showed no acute process. - Constitutional Vitals: Temp Pulse Resp BP Pulse Ox 98.2 F 96 16 129/60 95 08/07/17 07:27 08/07/17 07:27 08/07/17 07:27 08/07/17 07:27 08/07/17 07:27 General appearance: Present: A&O X 2, mild distress, morbidly obese - Head Head exam: Present: atraumatic, normocephalic - Neck Neck exam general surgery: Present: supple, trachea midline. Absent: lymphadenopathy - Respiratory Respiratory exam: Present: decreased breath sounds, rales. Absent: accessory muscle use, rhonchi, wheezes - Cardiovascular Cardiovascular exam: Present: irregular rhythm. Absent: diastolic murmur, gallop, rubs, systolic murmur - GI/Abdominal GI/Abdominal exam: Present: normal bowel sounds, soft, no peritoneal signs. Absent: distended, tenderness Additional comments: Ventral hernia, obese - Extremities Exam Extremities exam: Present: pedal edema, warm, radial pulses palpable and symmetrical. Absent: calf tenderness, cyanotic Additional comments: 2+ pitting edema Chronic venous stasis changes - Neurological Exam Neurological exam: Present: CN II-XII intact, oriented X3, no focal deficits. Absent: pronater drift, facial droop, speech deficit - Skin Skin exam: Present: dry, intact Additional comments: Cap reill <2.5 sec Internal Medicine: Result - Labs CBC & Chem 7: 08/07/17 10:33 08/07/17 00:34 Labs: Short CBC 08/07/17 Range/Units 00:34 WBC 7.1 (4.3-11.1) K/mcL Hgb 8.7 L (11.5-15.4) g/dL Hct 27.5 L (35.3-44.9) % Plt Count 221 (140-400) K/mcL BMP 08/07/17 00:34 Sodium 132 L Potassium 4.0 Chloride 88 L Carbon Dioxide 37 H BUN 52 H Creatinine 1.29 H Glucose 125 H Calcium 9.5 - ABG Interpretation ABG results: PT/INR, D-dimer PT 36.1 Seconds (9.4-12.1) H 08/07/17 00:34 Consult Discharge Plan - Plan Referrals: Lawson Patel MD [Primary Care Provider] -
[2017-08-07 11:07] LABS: Hematocrit 26.1 % (35.3-44.9); Mean Corpuscular HGB Conc 30.7 g/dL (31.6-35.5); Mean Corpuscular Hemoglobin 26.9 pg (28.0-33.3); Mean Corpuscular Volume 87.9 fL (83.0-100.0); Mean Platelet Volume 10.8 fL (9.4-12.4); Platelet Count 212 K/mcL (140-400); Red Blood Count 2.97 M/mcL (3.82-4.97); Red Cell Distribution Width 15.8 % (11.5-14.5)
[2017-08-08 05:33] LABS: INR 1.7; Prothrombin Time 18.7 Seconds (9.4-12.1)
[2017-08-08 05:44] LABS: Calcium 9.6 mg/dL (8.6-10.3); Potassium 3.5 mEq/L (3.5-5.1)
[2017-08-08] MEDS: Pantoprazole 40 MG VIAL IVP SCH (05:55)
[2017-08-08] MEDS: cefTRIAXone 1,000 MG in Water for inj. (sterile) 20 ML 10 ML IVP SCH (08:18)
[2017-08-08] MEDS: Furosemide 40 MG/4 ML VIAL IVP SCH ×3 (08:18→18:00)
[2017-08-08] MEDS: Sucralfate 1 GM TABLET PO SCH ×4 (08:19→20:56)
[2017-08-08] MEDS: Insulin LISPRO 300 UNITS/3 ML VIAL SQ SCH ×3 (08:20→18:03)
--- NOTE | 2017-08-08 10:17 | Internal Med Progress Note ---
Date of Encounter: 08/08/17 Time of Encounter: 09:00 - Assessment and plan (1) Symptomatic anemia Current Visit: Yes Status: Acute Assessment and plan: Acute blood loss anemia, unclear source Transfused 2 units of blood Give IV Lasix due to congestion Hold Coumadin and aspirin Protonix IV GI or surgery consultation the morning ( please call) Sequential compression devices for DVT prophylaxis. The patient will be admitted as inpatient, expected stay more than 2 midnights. DNR CC arrest DNI, time spent on this admission 40 minutes High risk of falling 08/07: Patient's hemoglobin is stable presently. Continue to monitor. H+H bid. I suspect this may be more of a subacute blood loss as opposed to acute. We will continue to monitor. Should she show further signs of dropping her hemoglobin, we will then consider fresh frozen plasma to reverse her quite a lot but the. Coumadin remains on hold. She is not a candidate for endoscopy presently due to her coagulopathy. Continue to closely monitor. Transfuse when necessary. Continue IV Protonix. 08/08: Hemoglobin remained stable at 8.0. She continues on IV Protonix. INR is down to 1.7. No evidence of bleeding. Vitals remained stable. GI consult is pending. Given patient's acute on chronic diastolic CHF and ongoing need for diuresis, I would not recommend proceeding with endoscopy until her CHF is compensated. He is on Coumadin for atrial fibrillation and this will continue to be held. At some point in the near future would recommend at least starting baby aspirin for stroke prevention, but not acutely. Will continue to monitor. We will change Protonix to by mouth. (2) DM2 (diabetes mellitus, type 2) Current Visit: No Status: Chronic Assessment and plan: 08/08: Good glycemic control. Monitor. Continue SSI. Qualifiers: Diabetes mellitus alf insulin use: without mosaic floor layer use Diabetes mellitus complication status: without complication Qualified Code(s): E11.9 - Type 2 diabetes mellitus without complications (3) COPD (chronic obstructive pulmonary disease) Current Visit: No Status: Chronic Assessment and plan: No exacerbation 08/08: Do not suspect an acute exacerbation. I will continue with aggressive bronchodilator therapy. Monitor. Reviewing her labs she has elevated serum bicarbonate, I suspect she has some degree of obesity hypoventilation syndrome, and likely sleep apnea as well. Qualifiers: COPD type: unspecified COPD Qualified Code(s): J44.9 - Chronic obstructive pulmonary disease, unspecified (4) Paroxysmal atrial fibrillation Current Visit: No Status: Chronic Assessment and plan: Hold Coumadin Check INR stat May administer vitamin K 08/08: Coumadin is held. Rate is controlled. Continue to monitor. Given her suspected bleeding, we will hold anticoagulation for now. Consider baby aspirin in the future or stroke prevention. (5) KELSEA (acute kidney injury) Current Visit: Yes Status: Acute Assessment and plan: Acute renal failure likely secondary to anemia Blood was transfused No IV fluids due to severe congestion and history of severe tricuspid regurgitation Hold allopurinol, aspirin, hydrochlorothiazide and quinapril 08/07: Continue to monitor especially while receiving diuresis avoid unnecessary nephrotoxins Note that patient did have a CT abdomen and pelvis with IV contrast on August 06. 08/08: Renal function remains stable. Patient has chronic kidney disease stage III. Diuresis continues as long as renal function allows. Continue to monitor. (6) Elevated lactic acid level Current Visit: Yes Status: Resolved Assessment and plan: Elevated lactic acid the first lactic acid was 3.5, second one was 2 08/07: Resolved (7) Hypoxia Current Visit: Yes Status: Acute Assessment and plan: patient with acute on chronic hypoxemic respiratory failure, multifactorial -CHF as described above -Underlying COPD -Obesity hypoventilation syndrome, probable sleep apnea. 08/08: Patient is satting 95% on 4 L of oxygen per nasal cannula. Would aim for oxygen saturations of 90-91% Review of patient's serum bicarbonate indicates what is likely a chronic metabolic transplantation for a chronic respiratory acidosis. Thus I would classify her respiratory failure as a combined acute on chronic hypoxemic resp failure, as well as chronic hypercarbic respiratory failure I do not see any evidence of pneumonia. I did add senna spirometry as she has some bibasilar atelectasis. (8) UTI (urinary tract infection) Current Visit: Yes Status: Acute Assessment and plan: Continue Rocephin Culture pending 08/07: Day #2 IV Rocephin. Continue. Await culture results. 08/08: Patient is day #3 IV Rocephin. Urine culture is pansensitive Escherichia coli. I will change patient to Keflex 500 mg po QID to complete a 7 day course for UTI. Now day #3 of 7 abx. Qualifiers: Urinary tract infection type: site unspecified Hematuria presence: without hematuria Qualified Code(s): N39.0 - Urinary tract infection, site not specified (9) CHF (congestive heart failure) Current Visit: Yes Status: Acute Assessment and plan: Acute diastolic CHF exacerbation/severe tricuspid regurgitation Strict I's and O's, daily weight Lasix IV 08/07: Acute on chronic diastolic CHF as well as acute on chronic CHF due to pulmonary hypertension. Increase Lasix to 80 mg IV 3 times a day. Uptitrate Coreg 12.5 mg by mouth twice a day. Need improved blood pressure control. We will consider Imdur to reduce preload. Monitor BMP every day. Echo in January 2017 showed an EF of 60-65%, concentric LVH, severe pulmonary hypertension, along with severe tricuspid regurgitation. 08/08: Acute on chronic diastolic CHF, as well as CHF secondary to cor pulmonale physiology Continue with IV Lasix 40 mg twice a day as renal function allows. Coreg increased today to 25 mg by mouth twice a day. Consider Imdur next given her pulmonary hypertension. Continue to closely monitor. Qualifiers: Heart failure type: diastolic Heart failure chronicity: acute on chronic Qualified Code(s): I50.33 - Acute on chronic diastolic (congestive) heart failure (10) Weakness Current Visit: Yes Status: Acute Assessment and plan: Physical therapy evaluation, occupational therapy evaluation. Suspect she will need placement. - Time Spent With Patient Total time spent is greater than 50% in coordination of care (as documented) at patient's floor/unit and/or counseling patient: Greater than 35 minutes - Subjective Interval history: Ms. Rodriguez is a 82 year old female with a past medical history of paroxysmal atrial fibrillation on Coumadin, diastolic CHF with severe tricuspid regurgitation, syncopal episodes, diabetes type 2 not insulin-dependent, COPD oxygen dependent using 2 L, came to emergency room complaining of severe weakness and shortness of breath. The patient was seen in June after a fall where she had severe bleeding due to a laceration on her scalp she was transferred to [facility], family says that she lost a lot of blood back then but he did not require any transfusions. Today, she was called by her primary care physician saying that her labs were abnormal and she had severe anemia. Hemoglobin is 7.5 and last measurement we have from before is 10.2. Rectal examination was done at the emergency room and Hemoccult was negative. The patient's creatinine has increased to 1.27 from a prior value of 0.56. INR was not checked in the ER but the daughter says that yesterday it was 3.2 for which her Coumadin was held. Patient is a very poor historian and gets really confused, cannot tell whether she has dysuria are not, her UA was positive for 50 white blood cells. BNP is 432, chest x-ray shows vascular pulmonary congestion. The patient received Rocephin at the emergency room and 2 units of red blood cells were ordered. Blood pressure is 157/77. CT scan of the abdomen showed: Diverticulosis and stable chronic lolis hepatis induration. 08/07: Patient denies any bleeding presently. She was not aware she was losing any blood prior to arrival to the hospital. Presently she feels weak but has no chest pain or shortness of breath. She is not a good historian however. Patient denies any pain. She does have swelling in her legs which she states is chronic. She is on oxygen 2 L per nasal cannula chronically. Hemoglobin is 8.7 this morning, prior to transfusion yesterday it was 7.5. Normocytic. She does not recall receiving blood. Coumadin is held. Patient's INR is 3.3 this morning. Chest x-ray on admission shows findings concerning for CHF. CT abdomen and pelvis with IV contrast showed no acute process. 08/08: Patient's hemoglobin remained stable. She states that she feels better today, denies chest pain or shortness of breath. Denies fevers or chills. No nausea, vomiting, diarrhea. She has some mild mid abdominal discomfort but it is improved. Patient is diuresed 3.7 L with IV Lasix. He has a Walden catheter in place. She is complaining of weakness. Appetite improving. - Constitutional Vitals: Temp Pulse Resp BP Pulse Ox 98.4 F 89 17 145/65 95 08/08/17 07:24 08/08/17 07:24 08/08/17 07:24 08/08/17 07:24 08/08/17 07:24 General appearance: Present: A&O X 2, mild distress, morbidly obese Exam: He is soft spoken, ill-appearing. Mild full sentence dyspnea. - Head Head exam: Present: atraumatic, normocephalic - Eye Eye exam: Present: PERRL, conjuntiva pink, sclera anicteric Pupils: Present: PERRL - Neck Neck exam general surgery: Present: supple, trachea midline. Absent: lymphadenopathy - Respiratory Respiratory exam: Present: decreased breath sounds, rales. Absent: accessory muscle use, rhonchi, wheezes - Cardiovascular Cardiovascular exam: Present: RRR, +S1, +S2. Absent: diastolic murmur, gallop, rubs, systolic murmur - GI/Abdominal GI/Abdominal exam: Present: normal bowel sounds, soft, no peritoneal signs. Absent: distended, tenderness - Extremities Exam Extremities exam: Present: pedal edema, warm, radial pulses palpable and symmetrical. Absent: calf tenderness, cyanotic Additional comments: Pitting edema bilateral lower extremities - Neurological Exam Neurological exam: Present: CN II-XII intact, oriented X3, no focal deficits. Absent: pronater drift, facial droop, speech deficit - Skin Skin exam: Present: dry, intact Internal Medicine: Result - Labs CBC & Chem 7: 08/07/17 10:33 08/08/17 04:57 Labs: Short CBC 08/07/17 Range/Units 10:33 WBC 5.7 (4.3-11.1) K/mcL Hgb 8.0 L (11.5-15.4) g/dL Hct 26.1 L (35.3-44.9) % Plt Count 212 (140-400) K/mcL [facility] 08/08/17 04:57 Sodium 137 Potassium 3.5 Chloride 91 L Carbon Dioxide 38 H BUN 50 H Creatinine 1.25 H Glucose 103 Calcium 9.6 - ABG Interpretation ABG results: PT/INR, D-dimer PT 18.7 Seconds (9.4-12.1) H 08/08/17 04:57 - VTE Documentation of Mechanical Device: Intermittent pneumatic compression device Consult Discharge Plan - Plan Referrals: Lawson Patel MD [Primary Care Provider] -
[2017-08-08] MEDS: cephALEXin 500 MG CAPSULE PO SCH ×3 (12:36→20:56)
[2017-08-08] MEDS: Acetaminophen 325 MG TABLET PO PRN (20:56)
[2017-08-09 07:13] LABS: BUN/Creatinine Ratio 43 (6-26); Blood Urea Nitrogen 37 mg/dL (8-23); Calcium 9.4 mg/dL (8.6-10.3); Carbon Dioxide 39 mEq/L (23-29); Chloride 91 mEq/L (98-107); Glucose 99 mg/dL (70-105); Osmolality,Calculated 295 (280-300); Sodium 138 mEq/L (136-145); eGFR For African Americans > 60 (> 60); eGFR For Non-African Americans > 60 (> 60)
[2017-08-09 07:15] LABS: INR 1.4; Prothrombin Time 15.5 Seconds (9.4-12.1)
[2017-08-09] MEDS: cephALEXin 500 MG CAPSULE PO SCH ×3 (08:06→20:17)
[2017-08-09] MEDS: Furosemide 40 MG/4 ML VIAL IVP SCH ×2 (08:06→13:52)
[2017-08-09] MEDS: Sucralfate 1 GM TABLET PO SCH ×4 (08:07→20:17)
[2017-08-09] MEDS: Insulin LISPRO 300 UNITS/3 ML VIAL SQ SCH ×4 (08:08→20:38)
[2017-08-09] MEDS: Acetaminophen 325 MG TABLET PO PRN ×2 (08:11→18:14)
[2017-08-09 09:24] LABS: Hematocrit 27.3 % (35.3-44.9); Hemoglobin 8.4 g/dL (11.5-15.4); Mean Corpuscular HGB Conc 30.8 g/dL (31.6-35.5); Mean Corpuscular Hemoglobin 27.3 pg (28.0-33.3); Mean Corpuscular Volume 88.6 fL (83.0-100.0); Mean Platelet Volume 11.1 fL (9.4-12.4); Platelet Count 188 K/mcL (140-400); Red Blood Count 3.08 M/mcL (3.82-4.97); Red Cell Distribution Width 15.9 % (11.5-14.5)
[2017-08-09 09:33] LABS: % Iron Saturation 2 % (15-50); Ferritin 31 ng/ml (10-120); Iron 10 mcg/dL (50-170); Transferrin 311 mg/dL (203-362)
[2017-08-09] MEDS: OXYCODONE Oral CONC 10 MG/0.5 ML ORAL.SYG SL PRN ×3 (10:45→20:18)
--- NOTE | 2017-08-09 12:13 | Internal Med Progress Note ---
Date of Encounter: 08/09/17 Time of Encounter: 12:11 - Assessment and plan (1) Symptomatic anemia Current Visit: Yes Status: Acute Assessment and plan: s/p 2 U PRBC Hb stable @ 8.4 Cont close monitoring of Hb Waiting on GI eval..Consult called in (2) Paroxysmal atrial fibrillation Current Visit: No Status: Chronic Assessment and plan: Rate controlled on Coreg Cont Holding Coumadin Will talk to GI about EGD (3) COPD (chronic obstructive pulmonary disease) Current Visit: No Status: Chronic Assessment and plan: Not in exacerbation Does have chronic hypoxic resp failure On chronic home O2 dependent at 2 lit Cont home INH regimen Qualifiers: COPD type: unspecified COPD Qualified Code(s): J44.9 - Chronic obstructive pulmonary disease, unspecified (4) DM2 (diabetes mellitus, type 2) Current Visit: No Status: Chronic Assessment and plan: On ISS Qualifiers: Diabetes mellitus fpc insulin use: without exterminator use Diabetes mellitus complication status: without complication Qualified Code(s): E11.9 - Type 2 diabetes mellitus without complications (5) Weakness Current Visit: Yes Status: Acute Assessment and plan: Physical therapy evaluation, occupational therapy evaluation. Suspect she will need placement. (6) KELSEA (acute kidney injury) Current Visit: Yes Status: Acute Assessment and plan: Improved (7) Elevated lactic acid level Current Visit: Yes Status: Resolved Assessment and plan: Elevated lactic acid the first lactic acid was 3.5, second one was 2 6/2: Resolved (8) UTI (urinary tract infection) Current Visit: Yes Status: Acute Qualifiers: Urinary tract infection type: site unspecified Hematuria presence: without hematuria Qualified Code(s): N39.0 - Urinary tract infection, site not specified (9) CHF (congestive heart failure) Current Visit: Yes Status: Acute Assessment and plan: Urine cx - E. Coli on Keflex 500mg TID Qualifiers: Heart failure type: diastolic Heart failure chronicity: acute on chronic Qualified Code(s): I50.33 - Acute on chronic diastolic (congestive) heart failure - Time Spent With Patient Total time spent is greater than 50% in coordination of care (as documented) at patient's floor/unit and/or counseling patient: - Subjective Interval history: Pt is alert, awake and O x 3. denied any CP. Feels little better today. Pt does not remeber of having any dark colored stools / melena. - Constitutional Vitals: Temp Pulse Resp BP Pulse Ox 98.1 F 76 18 144/53 95 08/09/17 05:15 08/09/17 05:15 08/09/17 05:15 08/09/17 05:15 08/09/17 05:15 General appearance: Present: cooperative, A&O X 3, morbidly obese, answers questions appropriately - Head Head exam: Present: atraumatic, normal inspection - Neck Neck exam general surgery: Present: supple - Respiratory Respiratory exam: Present: decreased breath sounds. Absent: rales, respiratory distress, rhonchi, wheezes - Cardiovascular Cardiovascular exam: Present: RRR, +S1, +S2. Absent: tachycardia - GI/Abdominal GI/Abdominal exam: Present: normal bowel sounds, soft. Absent: rebound, rigid, tenderness - Extremities Exam Extremities exam: Absent: calf tenderness, pedal edema, tenderness - Back Exam Back exam: Absent: CVA tenderness (L), CVA tenderness (R) - Neurological Exam Neurological exam: Present: alert, oriented X3 - Psychiatric Psychiatric exam: Present: depressed - Skin Skin exam: Absent: rash Internal Medicine: Result - Labs CBC & Chem 7: 08/09/17 06:03 08/09/17 06:03 Labs: Short CBC 08/09/17 Range/Units 06:03 WBC 7.0 (4.3-11.1) K/mcL Hgb 8.4 L (11.5-15.4) g/dL Hct 27.3 L (35.3-44.9) % Plt Count 188 (140-400) K/mcL BMP 08/09/17 06:03 Sodium 138 Potassium 3.0 L Chloride 91 L Carbon Dioxide 39 H BUN 37 H Creatinine 0.87 Glucose 99 Calcium 9.4 - ABG Interpretation ABG results: PT/INR, D-dimer PT 15.5 Seconds (9.4-12.1) H 08/09/17 06:03 - VTE Documentation of Mechanical Device: Intermittent pneumatic compression device Consult Discharge Plan - Plan Referrals: Lawson Patel MD [Primary Care Provider] -
--- NOTE | 2017-08-09 15:09 | Gastroenterology Consult Note ---
<Behzad Driscoll Sage - Last Filed: 08/09/17 15:07> Date of Encounter: 08/09/17 Time of Encounter: 11:55 - Assessment and plan (1) Anemia Current Visit: Yes Status: Chronic Assessment and plan: Hgb 7.5 on admission but was 10.2 on 07/02/2017. Hgb this AM 8.4. She has received 2 units PRBC. Coumadin has been held. INR on admission was 3.5 and this AM INR 1.4. Continue to monitor CBC and transfuse PRBC as needed. We do not recommend proceeding with endoscopy until her CHF is compensated. Iron 10 and ferritin 31. Qualifiers: Anemia type: unspecified type Qualified Code(s): D64.9 - Anemia, unspecified (2) Congestive heart failure Current Visit: No Status: Acute Assessment and plan: Management per primary team. Qualifiers: Qualified Code(s): I50.32 - Chronic diastolic (congestive) heart failure - Time Spent With Patient Total time spent is greater than 50% in coordination of care (as documented) at patient's floor/unit and/or counseling patient: GI History of Present Illness - Data of Consult Patient: known to practice within the last 3 years Consult date: 08/09/17 Requesting Physician: Joseph Mcbride - Consult Narrative Reason for consult: Acute on chronic anemia History of present illness: Ms. Rodriguez is a 82 year old female with PMHx of atrial fibrillation (On Coumadin and aspirin), CHF (Diastolic CHF with severe tricuspid regurgitation), COPD ( Oxygen dependent using 2 L/chronic respiratory failure), diabetes (Not insulin- dependent), HLD, HTN, GERD, carotid stenosis, hypertrophic cardiomyopathy who presented to the ED complaining of severe weakness and shortness of breath. she was called by her primary care physician saying that her labs were abnormal and she had severe anemia. Hgb 7.5 on admission but was 10.2 on 07/02/2017. Hgb this AM 8.4. Rectal examination was done at the ED and hemoccult was negative. She denies melena or hematochezia. She has received 2 units PRBC. Coumadin has been held. INR on admission was 3.5 and this AM INR 1.4. Procedures: EGD 02/04/2017 Dr. Fernandez: Small hiatal hernia and gastritis. Colonoscopy 10/17/2013 Dr. Burgess: Diverticulosis and two hyperplastic polyps. NSAIDs: ASA Anticoagulation: Coumadin Past Med Surg Social Fam HX - Past Medical History Medical history: atrial fibrillation (On Coumadin and aspirin), CHF (Diastolic CHF with severe tricuspid regurgitation), COPD (Oxygen dependent using 2 L/ chronic respiratory failure), diabetes (Not insulin-dependent), hyperlipidemia, hypertension, other (Perineal wound culture positive for MRSA in May 2015, gout, depression, GERD, syncopal episodes, carotid stenosis, hypertrophic cardiomyopathy) Psychiatric history: depression - Past Surgical History Surgical History: cataract, cholecystectomy, hysterectomy Additional surgical history: KNEE rt, surgery cataract surgery - Social History Smoking Status: Former smoker Smokeless Tobacco Status: No Alcohol use: none Drug use: none - Family History Brother Adopted: No Family Member Ethnicity: Non- Twin of Family Member: Yes, Fraternal Living Status: Hx Family Cardiac Disorders: Yes Sister Family Member Ethnicity: Non- Twin of Family Member: Yes, Fraternal Living Status: Still Living Hx Family Cardiac Disorders: Yes (SD) Mother Family Member Ethnicity: Non- Living Status: Hx Family Respiratory Disorders: Yes (Emphysema, TB) Hx Family Cancer: Yes (Basal cell skin cancer) Hx Family Endocrine Disorder: Yes (Cirrhosis) Father Family Member Ethnicity: Non- Living Status: Hx Family Respiratory Disorders: Yes (COPD, emphysema) Hx Family Endocrine Disorder: Yes (Cirrhosis) - Gastrointestinal Gastrointestinal: Present: as per HPI - Constitutional Constitutional: as per HPI - EENT Eyes: as per HPI Ears: Present: as per HPI Nose, mouth and throat: Present: as per HPI - Cardiovascular Cardiovascular ROS: Present: as per HPI - Respiratory Respiratory IM: Present: as per HPI - Genitourinary Genitourinary: Absent: change in color, Urinary frequency - Neurological ROS Neurological GI: Present: as per HPI - Hematologic/Lymphatic Hematologic/Lymphatic pediatric: Present: as per HPI - Musculoskeletal Musculoskeletal ROS GI: Present: as per HPI - Integumentary Integumentary GI: Present: as per HPI - Psychiatric ROS Psychiatric GI: Present: as per HPI - Endocrine Endocrine IM: Present: as per HPI - Constitutional Vitals: Temp Pulse Resp BP Pulse Ox 98.8 F 78 18 108/63 95 08/09/17 12:09 08/09/17 12:09 08/09/17 12:09 08/09/17 12:09 08/09/17 12:09 General appearance: Present: cooperative, A&O X 3, no acute distress, answers questions appropriately - Head Head exam: Present: atraumatic, normocephalic - Eye Eye exam: Present: normal appearance, sclera anicteric - ENT ENT exam: Present: mucous membranes dry - Neck Neck exam general surgery: Present: normal inspection, trachea midline - Respiratory Respiratory exam: Present: decreased breath sounds, CTAB. Absent: rales, rhonchi, wheezes - Cardiovascular Cardiovascular exam: Present: RRR, +S1, +S2 - GI/Abdominal GI/Abdominal exam: Present: soft, no peritoneal signs. Absent: distended, firm , guarding, tenderness - Rectal Rectal exam: Present: deferred - Extremities Exam Extremities exam: Present: warm - Neurological Exam Neurological exam: Present: no focal deficits - Psychiatric Psychiatric exam: Present: normal affect, normal mood - Skin Skin exam: Present: dry, intact, normal color, warm Results - Labs CBC & Chem 7: 08/09/17 06:03 08/09/17 06:03 Labs: Last Result Calcium 9.4 mg/dL (8.6-10.3) 08/09/17 06:03 Iron 10 mcg/dL (50-170) L 08/09/17 06:03 % Saturation 2 % (15-50) L 08/09/17 06:03 Transferrin 311 mg/dL (203-362) 08/09/17 06:03 Ferritin 31 ng/ml (10-120) 08/09/17 06:03 Troponin I < 0.03 ng/mL (< 0.04) 08/06/17 13:41 Entire Visit Hgb 8.4 g/dL (11.5-15.4) L 08/09/17 06:03 Hct 27.3 % (35.3-44.9) L 08/09/17 06:03 PT 15.5 Seconds (9.4-12.1) H 08/09/17 06:03 Ferritin 31 ng/ml (10-120) 08/09/17 06:03 - ABG ABG results: PT/INR, D-dimer PT 15.5 Seconds (9.4-12.1) H 08/09/17 06:03 Consult Discharge Plan - Plan Referrals: Lawson Patel MD [Primary Care Provider] - <Bisi Fernandez - Last Filed: 08/09/17 18:07> Date of Encounter: 08/09/17 Time of Encounter: 17:30 - Time Spent With Patient Total time spent is greater than 50% in coordination of care (as documented) at patient's floor/unit and/or counseling patient: GI History of Present Illness - Data of Consult Requesting Physician: Joseph Mcbride - Consult Narrative History of present illness: Ms. Rodriguez is a 82 year old female - Constitutional Vitals: Temp Pulse Resp BP Pulse Ox 98.8 F 78 18 108/63 95 08/09/17 12:09 08/09/17 12:09 08/09/17 12:09 08/09/17 12:09 08/09/17 12:09 Results - Labs CBC & Chem 7: 08/09/17 06:03 08/09/17 06:03 Labs: Last Result Calcium 9.4 mg/dL (8.6-10.3) 08/09/17 06:03 Iron 10 mcg/dL (50-170) L 08/09/17 06:03 % Saturation 2 % (15-50) L 08/09/17 06:03 Transferrin 311 mg/dL (203-362) 08/09/17 06:03 Ferritin 31 ng/ml (10-120) 08/09/17 06:03 Troponin I < 0.03 ng/mL (< 0.04) 08/06/17 13:41 Entire Visit Hgb 8.4 g/dL (11.5-15.4) L 08/09/17 06:03 Hct 27.3 % (35.3-44.9) L 08/09/17 06:03 PT 15.5 Seconds (9.4-12.1) H 08/09/17 06:03 Ferritin 31 ng/ml (10-120) 08/09/17 06:03 - ABG ABG results: PT/INR, D-dimer PT 15.5 Seconds (9.4-12.1) H 08/09/17 06:03 - Attending Attestation I have personally performed a face to face evaluation on this patient. I have reviewed and agree with the care plan. History and Exam by me shows: Patient with anemia but does has multiple other comorbidities including CHF. At this point is no overt GI bleeding. Rec: Watch hemoglobin for now if continued to drop or any overt GI bleeding then will consider scopes
[2017-08-09] MEDS: Furosemide 40 MG TABLET PO SCH (18:09)
[2017-08-10 06:30] LABS: Basophils # 0.1 K/mcL (0.0-0.2); Basophils % 0.7 %; Eosinophils # 0.3 K/mcL (0.0-0.6); Eosinophils % 4.5 %; Hematocrit 27.9 % (35.3-44.9); Hemoglobin 8.3 g/dL (11.5-15.4); Immature Granulocytes % 0.3 % (0-4); Lymphocytes # 1.3 K/mcL (0.6-4.6); Lymphocytes % 18.1 %; Mean Corpuscular HGB Conc 29.7 g/dL (31.6-35.5); Mean Corpuscular Hemoglobin 25.9 pg (28.0-33.3); Mean Corpuscular Volume 87.2 fL (83.0-100.0); Mean Platelet Volume 10.6 fL (9.4-12.4); Monocytes % 13.2 %; Neutrophils # 4.7 K/mcL (1.6-8.9); Platelet Count 172 K/mcL (140-400); Red Cell Distribution Width 15.9 % (11.5-14.5); Segmented Neutrophils % 63.2 %
[2017-08-10 06:34] LABS: INR 1.4; Prothrombin Time 15.3 Seconds (9.4-12.1)
[2017-08-10 06:46] LABS: BUN/Creatinine Ratio 37 (6-26); Blood Urea Nitrogen 31 mg/dL (8-23); Calcium 9.3 mg/dL (8.6-10.3); Carbon Dioxide 37 mEq/L (23-29); Chloride 91 mEq/L (98-107); Glucose 98 mg/dL (70-105); Osmolality,Calculated 287 (280-300); Potassium 3.5 mEq/L (3.5-5.1); Sodium 135 mEq/L (136-145); eGFR For African Americans > 60 (> 60); eGFR For Non-African Americans > 60 (> 60)
[2017-08-10] MEDS: Insulin LISPRO 300 UNITS/3 ML VIAL SQ SCH ×4 (07:00→20:43)
[2017-08-10] MEDS: Sucralfate 1 GM TABLET PO SCH ×4 (08:02→20:27)
[2017-08-10] MEDS: Furosemide 40 MG TABLET PO SCH (08:03)
[2017-08-10] MEDS: cephALEXin 500 MG CAPSULE PO SCH ×3 (08:03→20:27)
[2017-08-10] MEDS: OXYCODONE Oral CONC 10 MG/0.5 ML ORAL.SYG SL PRN ×2 (08:58→16:43)
[2017-08-10] MEDS: Ipratropium/Albuterol Neb 3 ML IH PRN ×2 (09:11→23:49)
[2017-08-10] MEDS ORDERED: OXYCODONE Oral CONC 10 MG/0.5 ML ORAL.SYG SL PRN (14:00)
[2017-08-10] MEDS: Furosemide 20 MG/2 ML VIAL IVP SCH (16:14)
--- NOTE | 2017-08-10 19:27 | Internal Med Progress Note ---
Date of Encounter: 08/10/17 Time of Encounter: 11:00 - Assessment and plan (1) Symptomatic anemia Current Visit: Yes Status: Acute Assessment and plan: s/p 2 U PRBC Hb stable @ 8.3 Cont close monitoring of Hb GI following and appreciate recommendations (2) CHF (congestive heart failure) Current Visit: Yes Status: Acute Assessment and plan: Patient with bilateral lower extremity edema with weight gain Will restart IV Lasix Qualifiers: Heart failure type: diastolic Heart failure chronicity: acute on chronic Qualified Code(s): I50.33 - Acute on chronic diastolic (congestive) heart failure (3) UTI (urinary tract infection) Current Visit: Yes Status: Acute Assessment and plan: Continue day 4 of 7 of Rocephin Culture pending Qualifiers: Urinary tract infection type: site unspecified Hematuria presence: without hematuria Qualified Code(s): N39.0 - Urinary tract infection, site not specified (4) KELSEA (acute kidney injury) Current Visit: Yes Status: Acute Assessment and plan: Resolved; continue to monitor (5) DM2 (diabetes mellitus, type 2) Current Visit: No Status: Chronic Assessment and plan: On ISS Qualifiers: Diabetes mellitus intermediate insulin use: without intermission coordinator use Diabetes mellitus complication status: without complication Qualified Code(s): E11.9 - Type 2 diabetes mellitus without complications (6) COPD (chronic obstructive pulmonary disease) Current Visit: No Status: Chronic Assessment and plan: Not in exacerbation Does have chronic hypoxic resp failure Cont home INH regimen Qualifiers: COPD type: unspecified COPD Qualified Code(s): J44.9 - Chronic obstructive pulmonary disease, unspecified (7) Paroxysmal atrial fibrillation Current Visit: No Status: Chronic Assessment and plan: Rate controlled on Coreg Cont Holding Coumadin due to potential GI bleed - Time Spent With Patient Total time spent is greater than 50% in coordination of care (as documented) at patient's floor/unit and/or counseling patient: - Subjective Interval history: Hemoglobin low but stable status post 2 units of packed red blood cells Patient however continues to require high amounts of supplemental oxygenation - Constitutional Vitals: Temp Pulse Resp BP Pulse Ox 98.4 F 70 16 156/65 97 08/10/17 19:18 08/10/17 19:18 08/10/17 19:18 08/10/17 19:18 08/10/17 19:18 General appearance: Present: cooperative, A&O X 3, morbidly obese, no acute distress, answers questions appropriately - Respiratory Respiratory exam: Present: CTAB. Absent: accessory muscle use, rales, rhonchi, wheezes - Cardiovascular Cardiovascular exam: Present: RRR, +S1, +S2. Absent: diastolic murmur, gallop, rubs, systolic murmur - Extremities Exam Extremities exam: Present: pedal edema Internal Medicine: Result - Labs CBC & Chem 7: 08/10/17 05:47 08/10/17 05:47 Labs: Short CBC 08/10/17 Range/Units 05:47 WBC 7.4 (4.3-11.1) K/mcL Hgb 8.3 L (11.5-15.4) g/dL Hct 27.9 L (35.3-44.9) % Plt Count 172 (140-400) K/mcL Neutrophils # 4.7 (1.6-8.9) K/mcL BMP 08/10/17 05:47 Sodium 135 L Potassium 3.5 Chloride 91 L Carbon Dioxide 37 H BUN 31 H Creatinine 0.84 Glucose 98 Calcium 9.3 - ABG Interpretation ABG results: PT/INR, D-dimer PT 15.3 Seconds (9.4-12.1) H 08/10/17 05:47 - VTE Documentation of Mechanical Device: Intermittent pneumatic compression device Consult Discharge Plan - Plan Referrals: Lawson Patel MD [Primary Care Provider] -
[2017-08-11] MEDS: OXYCODONE Oral CONC 10 MG/0.5 ML ORAL.SYG SL PRN ×4 (00:33→21:07)
[2017-08-11] MEDS ORDERED: Furosemide 40 MG/4 ML VIAL IVP ONE (03:44)
[2017-08-11 06:31] LABS: INR 1.4; Prothrombin Time 15.2 Seconds (9.4-12.1)
[2017-08-11 06:42] LABS: BUN/Creatinine Ratio 37 (6-26); Blood Urea Nitrogen 29 mg/dL (8-23); Calcium 9.2 mg/dL (8.6-10.3); Carbon Dioxide 39 mEq/L (23-29); Chloride 92 mEq/L (98-107); Glucose 94 mg/dL (70-105); Osmolality,Calculated 290 (280-300); Potassium 3.5 mEq/L (3.5-5.1); Sodium 137 mEq/L (136-145); eGFR For African Americans > 60 (> 60); eGFR For Non-African Americans > 60 (> 60)
[2017-08-11] MEDS: Insulin LISPRO 300 UNITS/3 ML VIAL SQ SCH ×4 (07:30→21:09)
[2017-08-11] MEDS: Sucralfate 1 GM TABLET PO SCH ×4 (08:26→21:08)
[2017-08-11] MEDS: cephALEXin 500 MG CAPSULE PO SCH ×3 (08:26→21:24)
[2017-08-11] MEDS: Furosemide 20 MG/2 ML VIAL IVP SCH (08:27)
[2017-08-11 09:45] LABS: Basophils # 0.1 K/mcL (0.0-0.2); Basophils % 1.1 %; Eosinophils # 0.3 K/mcL (0.0-0.6); Hematocrit 27.7 % (35.3-44.9); Hemoglobin 8.3 g/dL (11.5-15.4); Immature Granulocytes % 0.4 % (0-4); Lymphocytes # 1.2 K/mcL (0.6-4.6); Lymphocytes % 20.9 %; Mean Corpuscular Hemoglobin 26.2 pg (28.0-33.3); Mean Corpuscular Volume 87.4 fL (83.0-100.0); Mean Platelet Volume 10.4 fL (9.4-12.4); Monocytes # 0.7 K/mcL (0.0-1.3); Monocytes % 11.7 %; Neutrophils # 3.3 K/mcL (1.6-8.9); Platelet Count 170 K/mcL (140-400); Red Blood Count 3.17 M/mcL (3.82-4.97); Red Cell Distribution Width 15.9 % (11.5-14.5); Segmented Neutrophils % 59.9 %
[2017-08-11] MEDS: Furosemide 40 MG/4 ML VIAL IVP SCH (16:54)
--- NOTE | 2017-08-11 17:53 | Internal Med Progress Note ---
Date of Encounter: 08/11/17 Time of Encounter: 11:00 - Assessment and plan (1) Symptomatic anemia Current Visit: Yes Status: Acute Assessment and plan: Patient hemoglobin 8.3 s/p 2 U PRBC GI consulted with recommendations not to proceed with endoscopy and suspects iron deficiency anemia with iron of 10 and ferritin of 31 Will continue to monitor hemoglobin (2) CHF (congestive heart failure) Current Visit: Yes Status: Acute Assessment and plan: Patient still with bilateral lower extremity edema with weight gain We will increase IV Lasix dose from 60 mg twice daily to 80 mg twice daily Qualifiers: Heart failure type: diastolic Heart failure chronicity: acute on chronic Qualified Code(s): I50.33 - Acute on chronic diastolic (congestive) heart failure (3) COPD (chronic obstructive pulmonary disease) Current Visit: No Status: Chronic Assessment and plan: Not in exacerbation Does have chronic hypoxic resp failure Cont home INH regimen Qualifiers: COPD type: unspecified COPD Qualified Code(s): J44.9 - Chronic obstructive pulmonary disease, unspecified (4) UTI (urinary tract infection) Current Visit: Yes Status: Acute Assessment and plan: Continue day 5 of 7 of Rocephin Culture pending Qualifiers: Urinary tract infection type: site unspecified Hematuria presence: without hematuria Qualified Code(s): N39.0 - Urinary tract infection, site not specified (5) KELSEA (acute kidney injury) Current Visit: Yes Status: Acute Assessment and plan: Resolved; continue to monitor (6) DM2 (diabetes mellitus, type 2) Current Visit: No Status: Chronic Assessment and plan: On ISS Qualifiers: Diabetes mellitus half-way insulin use: without oil heaterman use Diabetes mellitus complication status: without complication Qualified Code(s): E11.9 - Type 2 diabetes mellitus without complications (7) Paroxysmal atrial fibrillation Current Visit: No Status: Chronic Assessment and plan: Rate controlled on Coreg Cont Holding Coumadin due to potential GI bleed - Time Spent With Patient Total time spent is greater than 50% in coordination of care (as documented) at patient's floor/unit and/or counseling patient: - Subjective Interval history: Hemoglobin low but stable status post 2 units of packed red blood cells Patient is a requirements improving as she is getting close to baseline at 4 L nasal cannula today Patient however continues to have generalized weakness and not able to participate much in physical therapy this morning Readdressed recommendations for jail placement with daughter/POA who is at bedside. - Constitutional Vitals: Temp Pulse Resp BP Pulse Ox 98.2 F 82 18 153/75 96 08/11/17 14:47 08/11/17 14:47 08/11/17 14:47 08/11/17 14:47 08/11/17 14:47 General appearance: Present: cooperative, A&O X 3, morbidly obese, no acute distress, answers questions appropriately - Respiratory Respiratory exam: Present: CTAB. Absent: accessory muscle use, rales, rhonchi, wheezes - Cardiovascular Cardiovascular exam: Present: RRR, +S1, +S2. Absent: diastolic murmur, gallop, rubs, systolic murmur - Expanded Lower Extremities Exam Lower Leg exam: Present: swelling (Trace to +1 pitting edema) Internal Medicine: Result - Labs CBC & Chem 7: 08/11/17 09:18 08/11/17 05:54 Labs: Short CBC 08/11/17 Range/Units 09:18 WBC 5.5 (4.3-11.1) K/mcL Hgb 8.3 L (11.5-15.4) g/dL Hct 27.7 L (35.3-44.9) % Plt Count 170 (140-400) K/mcL Neutrophils # 3.3 (1.6-8.9) K/mcL BMP 08/11/17 05:54 Sodium 137 Potassium 3.5 Chloride 92 L Carbon Dioxide 39 H BUN 29 H Creatinine 0.79 Glucose 94 Calcium 9.2 - ABG Interpretation ABG results: PT/INR, D-dimer PT 15.2 Seconds (9.4-12.1) H 08/11/17 05:54 - VTE Documentation of Mechanical Device: Intermittent pneumatic compression device Consult Discharge Plan - Plan Referrals: Lawson Patel MD [Primary Care Provider] - 08/18/17 11:00 am
[2017-08-11] MEDS: Ipratropium/Albuterol Neb 3 ML IH PRN (22:29)
[2017-08-12] MEDS: Insulin LISPRO 300 UNITS/3 ML VIAL SQ SCH ×4 (08:00→21:21)
[2017-08-12] MEDS: Sucralfate 1 GM TABLET PO SCH ×4 (08:07→21:17)
[2017-08-12] MEDS: cephALEXin 500 MG CAPSULE PO SCH ×3 (08:07→21:17)
[2017-08-12] MEDS: OXYCODONE Oral CONC 10 MG/0.5 ML ORAL.SYG SL PRN ×3 (08:07→21:18)
[2017-08-12] MEDS: Furosemide 40 MG/4 ML VIAL IVP SCH ×2 (08:07→17:36)
[2017-08-12 10:06] LABS: Immature Granulocytes % 0.3 % (0-4); Platelet Count 171 K/mcL (140-400); Red Cell Distribution Width 15.9 % (11.5-14.5)
[2017-08-12 10:07] LABS: Basophils % 0.4 %; Eosinophils # 0.2 K/mcL (0.0-0.6); Eosinophils % 2.9 %; Hematocrit 28.6 % (35.3-44.9); Hemoglobin 8.5 g/dL (11.5-15.4); Lymphocytes # 1.1 K/mcL (0.6-4.6); Mean Corpuscular HGB Conc 29.7 g/dL (31.6-35.5); Mean Corpuscular Hemoglobin 26.1 pg (28.0-33.3); Mean Corpuscular Volume 87.7 fL (83.0-100.0); Mean Platelet Volume 10.5 fL (9.4-12.4); Monocytes # 0.8 K/mcL (0.0-1.3); Monocytes % 10.9 %; Red Blood Count 3.26 M/mcL (3.82-4.97); Segmented Neutrophils % 70.5 %
[2017-08-12 10:23] LABS: BUN/Creatinine Ratio 28 (6-26); Blood Urea Nitrogen 24 mg/dL (8-23); Calcium 9.4 mg/dL (8.6-10.3); Carbon Dioxide 38 mEq/L (23-29); Chloride 93 mEq/L (98-107); Glucose 161 mg/dL (70-105); Osmolality,Calculated 294 (280-300); Potassium 3.7 mEq/L (3.5-5.1); Sodium 138 mEq/L (136-145); eGFR For African Americans > 60 (> 60); eGFR For Non-African Americans > 60 (> 60)
[2017-08-12 11:05] LABS: Platelet Estimate Normal (Normal)
[2017-08-12 11:06] LABS: Anisocytosis 1+ (Not Present); Hypochromasia Present (Not Present)
--- NOTE | 2017-08-12 19:47 | Internal Med Progress Note ---
Date of Encounter: 08/13/17 Time of Encounter: 11:00 - Assessment and plan (1) Symptomatic anemia Current Visit: Yes Status: Acute Assessment and plan: Patient hemoglobin 8.5 s/p 2 U PRBC GI consulted with recommendations not to proceed with endoscopy and suspects iron deficiency anemia with iron of 10 and ferritin of 31 Will continue to monitor hemoglobin (2) CHF (congestive heart failure) Current Visit: Yes Status: Acute Assessment and plan: Patient with improvement in bilateral lower extremity edema with weight gain We continue IV Lasix 80 mg twice daily Qualifiers: Heart failure type: diastolic Heart failure chronicity: acute on chronic Qualified Code(s): I50.33 - Acute on chronic diastolic (congestive) heart failure (3) COPD (chronic obstructive pulmonary disease) Current Visit: No Status: Chronic Assessment and plan: Patient's O2 requirements continues to improve which is now down to 3 L which is close to baseline Patient however continues to have generalized weakness Recommendations for senior care placement and awaiting placement Qualifiers: COPD type: unspecified COPD Qualified Code(s): J44.9 - Chronic obstructive pulmonary disease, unspecified (4) UTI (urinary tract infection) Current Visit: Yes Status: Acute Assessment and plan: Resolved; antibiotic course completed Qualifiers: Urinary tract infection type: site unspecified Hematuria presence: without hematuria Qualified Code(s): N39.0 - Urinary tract infection, site not specified (5) KELSEA (acute kidney injury) Current Visit: Yes Status: Acute Assessment and plan: Resolved; continue to monitor (6) DM2 (diabetes mellitus, type 2) Current Visit: No Status: Chronic Assessment and plan: On ISS Qualifiers: Diabetes mellitus terminal make up operator insulin use: without alf use Diabetes mellitus complication status: without complication Qualified Code(s): E11.9 - Type 2 diabetes mellitus without complications (7) Paroxysmal atrial fibrillation Current Visit: No Status: Chronic Assessment and plan: Rate controlled on Coreg Cont Holding Coumadin due to potential GI bleed - Time Spent With Patient Total time spent is greater than 50% in coordination of care (as documented) at patient's floor/unit and/or counseling patient: - Subjective Interval history: Patient's O2 requirements continues to improve which is now down to 3 L which is close to baseline Patient however continues to have generalized weakness Recommendations for senior care placement and awaiting placement - Constitutional Vitals: Temp Pulse Resp BP Pulse Ox 98.5 F 76 18 151/54 95 08/12/17 18:56 08/12/17 18:56 08/12/17 18:56 08/12/17 18:56 08/12/17 18:56 General appearance: Present: cooperative, A&O X 3, morbidly obese, no acute distress, answers questions appropriately - Respiratory Respiratory exam: Present: CTAB. Absent: accessory muscle use, rales, rhonchi, wheezes - Cardiovascular Cardiovascular exam: Present: RRR, +S1, +S2. Absent: diastolic murmur, gallop, rubs, systolic murmur Internal Medicine: Result - Labs CBC & Chem 7: 08/12/17 09:42 08/12/17 09:42 Labs: Short CBC 08/12/17 Range/Units 09:42 WBC 7.1 (4.3-11.1) K/mcL Hgb 8.5 L (11.5-15.4) g/dL Hct 28.6 L (35.3-44.9) % Plt Count 171 (140-400) K/mcL Neutrophils # 5.0 (1.6-8.9) K/mcL BMP 08/12/17 09:42 Sodium 138 Potassium 3.7 Chloride 93 L Carbon Dioxide 38 H BUN 24 H Creatinine 0.85 Glucose 161 H Calcium 9.4 - ABG Interpretation ABG results: PT/INR, D-dimer PT 15.2 Seconds (9.4-12.1) H 08/11/17 05:54 - VTE Documentation of Mechanical Device: Intermittent pneumatic compression device Consult Discharge Plan - Plan Referrals: Lawson Patel MD [Primary Care Provider] - 08/18/17 11:00 am
[2017-08-13] MEDS: Acetaminophen 325 MG TABLET PO PRN ×2 (00:33→15:19)
[2017-08-13] MEDS: Sucralfate 1 GM TABLET PO SCH ×4 (08:51→21:22)
[2017-08-13] MEDS: Furosemide 40 MG/4 ML VIAL IVP SCH ×2 (08:51→16:22)
[2017-08-13] MEDS: Insulin LISPRO 300 UNITS/3 ML VIAL SQ SCH ×4 (08:52→21:24)
[2017-08-13 09:13] LABS: Eosinophils % 4.2 %; Immature Granulocytes % 0.2 % (0-4); Monocytes % 11.4 %
[2017-08-13 09:14] LABS: Basophils # 0.1 K/mcL (0.0-0.2); Basophils % 1.1 %; Eosinophils # 0.2 K/mcL (0.0-0.6); Hematocrit 27.8 % (35.3-44.9); Hemoglobin 8.2 g/dL (11.5-15.4); Lymphocytes # 1.4 K/mcL (0.6-4.6); Mean Corpuscular HGB Conc 29.5 g/dL (31.6-35.5); Mean Corpuscular Hemoglobin 25.9 pg (28.0-33.3); Mean Corpuscular Volume 87.7 fL (83.0-100.0); Mean Platelet Volume 10.5 fL (9.4-12.4); Monocytes # 0.6 K/mcL (0.0-1.3); Neutrophils # 3.1 K/mcL (1.6-8.9); Platelet Count 159 K/mcL (140-400); Red Blood Count 3.17 M/mcL (3.82-4.97); Red Cell Distribution Width 15.9 % (11.5-14.5); Segmented Neutrophils % 58.1 %
[2017-08-13 09:37] LABS: BUN/Creatinine Ratio 34 (6-26); Blood Urea Nitrogen 22 mg/dL (8-23); Calcium 9.2 mg/dL (8.6-10.3); Carbon Dioxide 39 mEq/L (23-29); Chloride 95 mEq/L (98-107); Glucose 95 mg/dL (70-105); Osmolality,Calculated 291 (280-300); Potassium 3.8 mEq/L (3.5-5.1); Sodium 139 mEq/L (136-145); eGFR For African Americans > 60 (> 60); eGFR For Non-African Americans > 60 (> 60)
[2017-08-13] MEDS: OXYCODONE Oral CONC 10 MG/0.5 ML ORAL.SYG SL PRN (18:09)
--- NOTE | 2017-08-13 19:31 | Internal Med Progress Note ---
Date of Encounter: 08/14/17 Time of Encounter: 11:00 - Assessment and plan (1) CHF (congestive heart failure) Current Visit: Yes Status: Acute Assessment and plan: Patient with improvement in bilateral lower extremity In addition patient almost close to baseline O2 requirements Will diurese with IV Lasix for one more additional day Qualifiers: Heart failure type: diastolic Heart failure chronicity: acute on chronic Qualified Code(s): I50.33 - Acute on chronic diastolic (congestive) heart failure (2) COPD (chronic obstructive pulmonary disease) Current Visit: No Status: Chronic Assessment and plan: Patient's O2 requirements continues to improve which is now down to 3 L which is close to baseline Patient however continues to have generalized weakness Recommendations for nursing home placement and awaiting placement Qualifiers: COPD type: unspecified COPD Qualified Code(s): J44.9 - Chronic obstructive pulmonary disease, unspecified (3) Symptomatic anemia Current Visit: Yes Status: Acute Assessment and plan: Patient hemoglobin 8.5 s/p 2 U PRBC GI consulted with recommendations not to proceed with endoscopy and suspects iron deficiency anemia with iron of 10 and ferritin of 31 Will continue to monitor hemoglobin (4) UTI (urinary tract infection) Current Visit: Yes Status: Acute Assessment and plan: Resolved; antibiotic course completed Qualifiers: Urinary tract infection type: site unspecified Hematuria presence: without hematuria Qualified Code(s): N39.0 - Urinary tract infection, site not specified (5) KELSEA (acute kidney injury) Current Visit: Yes Status: Acute Assessment and plan: Resolved; continue to monitor (6) DM2 (diabetes mellitus, type 2) Current Visit: No Status: Chronic Assessment and plan: On ISS Qualifiers: Diabetes mellitus environmental services lead insulin use: without fci use Diabetes mellitus complication status: without complication Qualified Code(s): E11.9 - Type 2 diabetes mellitus without complications (7) Paroxysmal atrial fibrillation Current Visit: No Status: Chronic Assessment and plan: Rate controlled on Coreg Cont Holding Coumadin due to potential GI bleed - Time Spent With Patient Total time spent is greater than 50% in coordination of care (as documented) at patient's floor/unit and/or counseling patient: - Subjective Interval history: Patient's O2 requirements continues to improve which is now down to 3 L which is close to baseline Will continue 1 more additional day of IV diuresis - Constitutional Vitals: Temp Pulse Resp BP Pulse Ox 98.9 F 75 18 145/54 95 08/13/17 19:21 08/13/17 19:21 08/13/17 19:21 08/13/17 19:21 08/13/17 19:21 General appearance: Present: cooperative, A&O X 3, morbidly obese, no acute distress, answers questions appropriately - Respiratory Respiratory exam: Present: CTAB. Absent: accessory muscle use, rales, rhonchi, wheezes - Cardiovascular Cardiovascular exam: Present: RRR, +S1, +S2. Absent: diastolic murmur, gallop, rubs, systolic murmur Internal Medicine: Result - Labs CBC & Chem 7: 08/13/17 08:57 08/13/17 08:57 Labs: Short CBC 08/13/17 Range/Units 08:57 WBC 5.4 (4.3-11.1) K/mcL Hgb 8.2 L (11.5-15.4) g/dL Hct 27.8 L (35.3-44.9) % Plt Count 159 (140-400) K/mcL Neutrophils # 3.1 (1.6-8.9) K/mcL BMP 08/13/17 08:57 Sodium 139 Potassium 3.8 Chloride 95 L Carbon Dioxide 39 H BUN 22 Creatinine 0.65 Glucose 95 Calcium 9.2 - ABG Interpretation ABG results: PT/INR, D-dimer PT 15.2 Seconds (9.4-12.1) H 08/11/17 05:54 - VTE Documentation of Mechanical Device: Intermittent pneumatic compression device Consult Discharge Plan - Plan Referrals: Lawson Patel MD [Primary Care Provider] - 08/18/17 11:00 am
[2017-08-14] MEDS: OXYCODONE Oral CONC 10 MG/0.5 ML ORAL.SYG SL PRN ×3 (01:28→19:45)
[2017-08-14] MEDS: Insulin LISPRO 300 UNITS/3 ML VIAL SQ SCH ×3 (09:20→17:21)
[2017-08-14] MEDS: Sucralfate 1 GM TABLET PO SCH ×3 (09:26→17:22)
[2017-08-14] MEDS: Furosemide 40 MG/4 ML VIAL IVP SCH ×2 (09:27→17:23)
--- NOTE | 2017-08-14 14:47 | Discharge Summary ---
- NOTES TO OUTPATIENT PROVIDER Notes to Outpatient Provider: none Date of Encounter: 08/14/17 Time of Encounter: 11:00 - Discharge Diagnosis (1) CHF (congestive heart failure) Priority: Primary Status: Acute Qualifiers: Heart failure type: diastolic Heart failure chronicity: acute on chronic Qualified Code(s): I50.33 - Acute on chronic diastolic (congestive) heart failure (2) COPD (chronic obstructive pulmonary disease) Priority: Secondary Status: Chronic Qualifiers: COPD type: unspecified COPD Qualified Code(s): J44.9 - Chronic obstructive pulmonary disease, unspecified (3) Symptomatic anemia Priority: Primary Status: Acute (4) UTI (urinary tract infection) Priority: Primary Status: Acute Qualifiers: Urinary tract infection type: site unspecified Hematuria presence: without hematuria Qualified Code(s): N39.0 - Urinary tract infection, site not specified (5) KELSEA (acute kidney injury) Priority: Secondary Status: Acute (6) DM2 (diabetes mellitus, type 2) Priority: Secondary Status: Chronic Qualifiers: Diabetes mellitus meterman insulin use: without shelter use Diabetes mellitus complication status: without complication Qualified Code(s): E11.9 - Type 2 diabetes mellitus without complications (7) Paroxysmal atrial fibrillation Priority: Secondary Status: Chronic Hospital course: Patient is a 82-year-old female with past medical history significant for paroxysmal atrial fibrillation on Coumadin, diastolic CHF with severe tricuspid regurgitation, syncopal episodes, diabetes type 2 not insulin-dependent, COPD oxygen dependent using 2 L, came to emergency room complaining of severe weakness and shortness of breath. The patient was seen in June after a fall where she had severe bleeding due to a laceration on her scalp she was transferred to [facility], family says that she lost a lot of blood back then but he did not require any transfusions. Today, she was called by her primary care physician saying that her labs were abnormal and she had severe anemia. Hemoglobin is 7.5 and last measurement we have from before is 10.2. Rectal examination was done at the emergency room and Hemoccult was negative. The patient's creatinine has increased to 1.27 from a prior value of 0.56. INR was not checked in the ER but the daughter says that yesterday it was 3.2 for which her Coumadin was held. Patient is a very poor historian and gets really confused, cannot tell whether she has dysuria are not, her UA was positive for 50 white blood cells. BNP is 432, chest x-ray shows vascular pulmonary congestion. The patient received Rocephin at the emergency room and 2 units of red blood cells were ordered. During patients hospital stay she was treated for urinary tract infection and antibiotic course was completed. Patient was also transfused 2 units of packed red blood cells for symptomatic anemia and her hemoglobin stabilized. In addition patient was treated for CHF exacerbation with IV diuresis and as a result, her oxygen requirements were able to be weaned down to baseline. Patient is now medically stable to be discharged to [facility]. - Time Spent with Patient Total time spent providing and/or coordinating discharge services: Less than 30 minutes - Discharge Medications Home Medications: Allopurinol [Zyloprim] 300 mg PO QAM 10/11/14 [History] Atorvastatin Calcium [Lipitor] 20 mg PO QAM 10/11/14 [History] Quinapril HCl [Accupril] 40 mg PO QAM 10/11/14 [History] Escitalopram [Lexapro] 10 mg PO DAILY 01/28/17 [History] Aspirin Enteric Coated [Aspirin EC] 81 mg PO DAILY #30 tablet. 02/04/17 [Rx] Carvedilol [Coreg] 6.25 mg PO BIDWM #60 tablet 02/04/17 [Rx] hydroCHLOROthiazide [Hydrochlorothiazide] 25 mg PO DAILY #30 tablet 02/04/17 [Rx ] Amlodipine Besylate 10 mg PO DAILY 03/25/17 [History] Lidocaine Patch [Lidoderm 5% patch] 2 each TP DAILY 03/25/17 [History] Oxycodone HCl/Acetaminophen [Percocet 5-325 mg Tablet] 1 tab PO Q6H PRN [History] Warfarin Sodium [Coumadin] 6 mg PO SUTUTHFRSA 03/25/17 [History] Warfarin [Coumadin] 8 mg PO MOWE 03/25/17 [History] metFORMIN [Glucophage] 500 mg PO BIDWM 03/25/17 [History] Furosemide [Lasix] 80 mg PO BID 07/02/17 [History] Potassium Chloride [Klor-Con] 25 meq PO DAILY 07/02/17 [History] Sucralfate [Carafate] 1 gm PO QIDAC 07/02/17 [History] Diclofenac Sodium [Voltaren] 1 appl TP DAILY PRN 08/06/17 [History] Omeprazole [PriLOSEC] 40 mg PO DAILY 08/06/17 [History] Allergies/Adverse Reactions: 3 Allergy/AdvReac Type Severity Reaction Status Date / Time No Known Allergies Allergy Verified 01/28/17 13:58 Date of admission: 08/06/17 20:59 Primary care physician: Lawson Patel MD Consults: 08/06/17 21:02 Consult to [facility] Practitioner [CONS] Routine Reason for SW Consult: Patient from home with home oxygen through [address] and nursing service through [facility]. 08/08/17 10:31 Consult to Physical Therapy [CONS] Routine Comment: Evaluate, develop and implement POC Reason for Consult: weakness Does patient have active BEDREST order?: No Is patient medically & hemodynamically stable?: Yes Patient assessed for mobility or mobilized this visit?: No 08/09/17 12:08 OT [Consult to Occupational Therapy] [CONS] Routine Comment: Evaluate, develop and implement POC Reason for Consult: Deconditioning Does patient have active BEDREST order?: No Is patient medically & hemodynamically stable?: Yes Patient assessed for mobility or mobilized this visit?: No - Constitutional Vitals: Temp Pulse Resp BP Pulse Ox 98.1 F 73 14 131/75 96 08/14/17 11:10 08/14/17 11:10 08/14/17 11:10 08/14/17 11:10 08/14/17 11:10 General appearance: Present: cooperative, A&O X 3, morbidly obese, no acute distress, answers questions appropriately - Respiratory Respiratory exam: Present: CTAB. Absent: accessory muscle use, rales, rhonchi, wheezes - Cardiovascular Cardiovascular exam: Present: RRR, +S1, +S2. Absent: diastolic murmur, gallop, rubs, systolic murmur - Patient Status Disposition: Transfer SNF Condition: Fair - Discharge Instructions Follow Up With: Lawson Patel MD [Primary Care Provider] - 08/18/17 11:00 am - VTE Documentation of Mechanical Device: Intermittent pneumatic compression device
--- NOTE | 2017-08-14 14:48 | Physician Discharge Referral ---
ExtendedCare Referral Info Institutional Level of Care: Skilled - Diagnosis (1) CHF (congestive heart failure) Status: Acute (2) COPD (chronic obstructive pulmonary disease) Status: Chronic (3) Symptomatic anemia Status: Acute (4) UTI (urinary tract infection) Status: Acute (5) KELSEA (acute kidney injury) Status: Acute (6) DM2 (diabetes mellitus, type 2) Status: Chronic (7) Paroxysmal atrial fibrillation Status: Chronic - Transfer Medications Home Medications: Allopurinol [Zyloprim] 300 mg PO QAM 10/11/14 [History] Atorvastatin Calcium [Lipitor] 20 mg PO QAM 10/11/14 [History] Quinapril HCl [Accupril] 40 mg PO QAM 10/11/14 [History] Escitalopram [Lexapro] 10 mg PO DAILY 01/28/17 [History] Aspirin Enteric Coated [Aspirin EC] 81 mg PO DAILY #30 tablet. 02/04/17 [Rx] Carvedilol [Coreg] 6.25 mg PO BIDWM #60 tablet 02/04/17 [Rx] hydroCHLOROthiazide [Hydrochlorothiazide] 25 mg PO DAILY #30 tablet 02/04/17 [Rx ] Amlodipine Besylate 10 mg PO DAILY 03/25/17 [History] Lidocaine Patch [Lidoderm 5% patch] 2 each TP DAILY 03/25/17 [History] Oxycodone HCl/Acetaminophen [Percocet 5-325 mg Tablet] 1 tab PO Q6H PRN [History] Warfarin Sodium [Coumadin] 6 mg PO SUTUTHFRSA 03/25/17 [History] Warfarin [Coumadin] 8 mg PO MOWE 03/25/17 [History] metFORMIN [Glucophage] 500 mg PO BIDWM 03/25/17 [History] Furosemide [Lasix] 80 mg PO BID 07/02/17 [History] Potassium Chloride [Klor-Con] 25 meq PO DAILY 07/02/17 [History] Sucralfate [Carafate] 1 gm PO QIDAC 07/02/17 [History] Diclofenac Sodium [Voltaren] 1 appl TP DAILY PRN 08/06/17 [History] Omeprazole [PriLOSEC] 40 mg PO DAILY 08/06/17 [History] Allergies/Adverse Reactions: 3 Allergy/AdvReac Type Severity Reaction Status Date / Time No Known Allergies Allergy Verified 01/28/17 13:58 - Respiratory Orders Smoking Cessation: Smoking cessation has been advised. For more information, call the [place] Tobacco Quit Line at 4-548-IMVY-NOW. CERTIFICATION: I certify that the transfer of the above named patient to an Extended Care Facility is necessary for the continuing treatment of the diagnosis listed. The above information is true and accurate reflection of patient's current condition. Confidential - Redisclosure prohibited without a patient's written consent.
[2017-08-14 17:44] VITALS: BP 146/76
== END 2017-08-14 22:10 | DRG 291 ==
LOC: 3ANU 13:18 → EMEROO 13:18 → 3ANU 20:50 → SUATTDRO 20:59
PROVIDERS: ADMIT Internal Medicine; ATTEND Hospitalist